=== PATIENT | male | born 1965 | race Caucasian/White ===

== ENCOUNTER 2017-08-18 13:05 | Inpatient (IN) | payer OTHER, MEDICARE ==
[2017-08-18 14:00] VITALS: BP 145/94; PULSE 84; RESP 18; TEMP 98.3; O2SAT 96
[2017-08-18] MEDS ORDERED: POLY17S PO (14:42)
[2017-08-18] MEDS ORDERED: RISP2TAB2 PO (14:42)
[2017-08-18] MEDS ORDERED: QUET400T PO (14:42)
[2017-08-18] MEDS ORDERED: FERR325T18 PO (14:42)
[2017-08-18 15:22] LABS: AUTOMATED NEUTROPHIL # 3.6 TH/MM3 (1.8-7.7); BASOPHIL % 0.5 % (0.0-2.0); EOSINOPHIL # 0.2 TH/MM3 (0-0.4); EOSINOPHIL % 2.7 % (0.0-4.0); HEMATOCRIT 44.5 % (39.0-51.0); HEMOGLOBIN 14.9 GM/DL (13.0-17.0); LYMPHOCYTE # 1.8 TH/MM3 (1.0-4.8); MEAN CORPUSCULAR HEMOGLOBIN 32.2 PG (27.0-34.0); MEAN CORPUSCULAR HGB CONC 33.6 % (32.0-36.0); MEAN PLATELET VOLUME 9.2 FL (7.0-11.0); MONO % 11.1 % (0.0-8.0); MONOCYTE # 0.7 TH/MM3 (0-0.9); NEUT % 57.7 % (16.0-70.0); PLATELET COUNT 209 TH/MM3 (150-450); RED BLOOD COUNT 4.63 MIL/MM3 (4.50-5.90); WHITE BLOOD COUNT 6.3 TH/MM3 (4.0-11.0)
[2017-08-18 15:27] LABS: ALT (GPT) 22 U/L (12-78); AST (GOT) 29 U/L (15-37); BICARBONATE 22.4 MEQ/L (21.0-32.0); BLOOD UREA NITROGEN 16 MG/DL (7-18); CALCIUM 9.2 MG/DL (8.5-10.1); CHLORIDE 105 MEQ/L (98-107); CREATININE 0.89 MG/DL (0.60-1.30); GLOMERULAR FILTRATION RATE 89 ML/MIN (>89); GLUCOSE,RANDOM 66 MG/DL (74-106); SODIUM (NA) 138 MEQ/L (136-145)
--- NOTE | 2017-08-18 15:28 | PD ---
HPI Chief Complaint: Psychiatric Symptoms Time Seen by Provider: 13:44 Travel History International Travel<30 days: No Contact w/Intl Traveler<30days: No Traveled to known affect area: No History of Present Illness HPI HPI is limited because patient will not speak at all. He just stares at me when I ask him questions. I did ask him if he was hungry and a few minutes later he did answer "I am hungry." When asked if he wanted a Gatorade he nodded his head yes. I did ask him to squeeze my fingers and he did squeeze my fingers. According to the Lees act report he has history of schizophrenia and the patient is refusing meds. He is refusing food or drinks including water. He has been off his medications for over a week. USP described bizarre behavior including staring, nonresponsive. PFSH Past Medical History Schizophrenia: Yes Social History Alcohol Use: No Tobacco Use: No Substance Use: No Allergies-Medications Reported Meds & Prescriptions Reported Meds & Active Scripts Active Reported Quetiapine (Quetiapine Fumarate) 400 Mg Tab 800 Mg PO HS Polyethylene Glycol 3350 Powder (Polyethylene Glycol) 17 Gram Pow 17 Gm PO DAILY Ferrous Sulfate 325 Mg (65 Mg Iron) Tablet 325 Mg PO BIDPC Risperidone 2 Mg Tab 2 Mg PO Q12HR Review of Systems ROS Limitations: Uncooperative, Other: (only talking minimally) Physical Exam Narrative GENERAL: Well-nourished, well-developed black male patient, in no acute distress SKIN: Warm and dry. HEAD: Atraumatic. Normocephalic. EYES: Pupils equal and round. ENT: Mucosa pink and moist. NECK: Supple. Trachea midline. CARDIOVASCULAR: Regular rate and rhythm. No murmur appreciated. RESPIRATORY: No accessory muscle use. Clear to auscultation. Breath sounds equal bilaterally. GASTROINTESTINAL: Abdomen soft, non-tender, nondistended. Hepatic and splenic margins not palpable. Bowel sounds are active 4 quadrants. MUSCULOSKELETAL: No obvious deformities. No clubbing. No cyanosis. No edema. NEUROLOGICAL: Awake and alert. No obvious cranial nerve deficits. Motor grossly within normal limits. Normal speech. Moves all extremities. PSYCHIATRIC: Flat affect. No delusional thought processes. No hallucinations. Data Data Last Documented VS Vital Signs Date Time Temp Pulse Resp B/P (MAP) Pulse Ox O2 Delivery O2 Flow Rate FiO2 08/18/17 14:00 98.3 84 18 145/94 (111) 96 Orders Orders Complete Blood Count With Diff (08/18/17 13:45) Comprehensive Metabolic Panel (08/18/17 13:45) Psych Screen (08/18/17 13:45) Drug Screen, Random Urine (08/18/17 13:45) Alcohol (Ethanol) (08/18/17 13:45) Salicylates (Aspirin) (08/18/17 13:45) Tylenol (Acetaminophen) (08/18/17 13:45) Diet Regular Basic (08/18/17 Dinner) Ct Brain W/O Iv Contrast(Rout) (08/18/17 ) Labs Laboratory Tests Test 08/18/17 15:00 08/18/17 15:35 White Blood Count 6.3 TH/MM3 Red Blood Count 4.63 MIL/MM3 Hemoglobin 14.9 GM/DL Hematocrit 44.5 % Mean Corpuscular Volume 96.0 FL Mean Corpuscular Hemoglobin 32.2 PG Mean Corpuscular Hemoglobin Concent 33.6 % Red Cell Distribution Width 14.0 % Platelet Count 209 TH/MM3 Mean Platelet Volume 9.2 FL Neutrophils (%) (Auto) 57.7 % Lymphocytes (%) (Auto) 28.0 % Monocytes (%) (Auto) 11.1 % Eosinophils (%) (Auto) 2.7 % Basophils (%) (Auto) 0.5 % Neutrophils # (Auto) 3.6 TH/MM3 Lymphocytes # (Auto) 1.8 TH/MM3 Monocytes # (Auto) 0.7 TH/MM3 Eosinophils # (Auto) 0.2 TH/MM3 Basophils # (Auto) 0.0 TH/MM3 CBC Comment DIFF FINAL Differential Comment Blood Urea Nitrogen 16 MG/DL Creatinine 0.89 MG/DL Random Glucose 66 MG/DL Total Protein 10.2 GM/DL Albumin 3.0 GM/DL Calcium Level 9.2 MG/DL Alkaline Phosphatase 96 U/L Aspartate Amino Transf (AST/SGOT) 29 U/L Alanine Aminotransferase (ALT/SGPT) 22 U/L Total Bilirubin 0.3 MG/DL Sodium Level 138 MEQ/L Potassium Level 3.8 MEQ/L Chloride Level 105 MEQ/L Carbon Dioxide Level 22.4 MEQ/L Anion Gap 11 MEQ/L Estimat Glomerular Filtration Rate 89 ML/MIN Salicylates Level 4.2 MG/DL Acetaminophen Level LESS THAN 2.0 MCG/ML Ethyl Alcohol Level LESS THAN 3 MG/DL Urine Opiates Screen NEG Urine Barbiturates Screen NEG Urine Amphetamines Screen NEG Urine Benzodiazepines Screen NEG Urine Cocaine Screen NEG Urine Cannabinoids Screen NEG MDM Medical Decision Making Medical Screen Exam Complete: Yes Emergency Medical Condition: Yes Medical Record Reviewed: Yes Differential Diagnosis Medical clearance for psychiatric admission, bipolar disorder, mood disorder, schizophrenia Narrative Course Patient presents under a Lees act. Physical examination and vital signs are essentially unremarkable. Patient has no medical complaints to report. Psych screen has been ordered. If the laboratory results are unremarkable, the patient will be medically cleared for psychiatric evaluation and disposition. Patient was given a food tray and he ate 100% of the food. 1818: CT head concludes: Head CT 08/18/17 0000 Signed Impressions: Service Date/Time: , August 18, 2017 17:17 - CONCLUSION: 1. Limited examination due to patient positioning and motion. 2. No gross acute intracranial abnormality. 3. Right maxillary sinus mucosal disease. Harlan Riley MD Diagnosis Primary Impression: Medical clearance for psychiatric admission Condition: Stable Hannah Fontana [facility] Aug 18, 2017 15:27
[2017-08-18 15:30] LABS: ALKALINE PHOSPHATASE 96 U/L (45-117); TOTAL BILIRUBIN ADULT 0.3 MG/DL (0.2-1.0); TOTAL PROTEIN 10.2 GM/DL (6.4-8.2)
[2017-08-18 15:32] LABS: ACETAMINOPHEN LESS THAN 2.0 MCG/ML (10.0-30.0)
--- NOTE | 2017-08-18 17:50 | RADRPT ---
EXAM DATE/TIME: 08/18/2017 17:17 [place] COMPARISON: No previous studies available for comparison. INDICATIONS : Altered mental status. RADIATION DOSE: 38.82 CTDIvol (mGy) ; Patient motion; Patient positioning MEDICAL HISTORY : schizophrenia SURGICAL HISTORY : None. ENCOUNTER: Initial ACUITY: 1 day PAIN SCALE: 0/10 LOCATION: cranial TECHNIQUE: Multiple contiguous axial images were obtained of the head. Using automated exposure control and adj ustment of the mA and/or kV according to patient size, radiation dose was kept as low as reasonably a chievable to obtain optimal diagnostic quality images. DICOM format image data is available electro nically for review and comparison. FINDINGS: Examination is limited due to patient positioning and motion. CEREBRUM: The ventricles are normal for age. No evidence of midline shift, gross mass lesion, hemorrhage or ac jackeline infarction. No extra-axial fluid collections are seen. POSTERIOR FOSSA: The cerebellum and brainstem are intact. The 4th ventricle is midline. The cerebellopontine angle i s unremarkable. EXTRACRANIAL: The visualized portion of the orbits is intact. Right maxillary sinus mucosal disease. SKULL: The calvaria is intact. No evidence of skull fracture. CONCLUSION: 1. Limited examination due to patient positioning and motion. 2. No gross acute intracranial abnormality. 3. Right maxillary sinus mucosal disease. Harlan Riley MD on August 18, 2017 at 17:46 Board Certified Radiologist. This report was verified electronically.
[2017-08-18 18:00] VITALS: BP 143/95; PULSE 78; RESP 18; TEMP 99.2; O2SAT 97
[2017-08-18] MEDS ORDERED: CALC600T4 PO (22:14)
[2017-08-18] MEDS ORDERED: MULTTAB67 PO (22:14)
[2017-08-18] MEDS ORDERED: FOLI400T PO (22:14)
[2017-08-19] MEDS ORDERED: LORazepam 2 MG/ML VIAL IM PRN (00:15)
[2017-08-19] MEDS ORDERED: MAGNESIUM HYDROXIDE SUSP 30 ML CUP PO PRN (00:15)
[2017-08-19] MEDS ORDERED: ACETAMINOPHEN 325 MG TAB PO PRN (00:15)
[2017-08-19] MEDS ORDERED: ALUMINUM/MAGNESIUM/SIMETH 30 ML CUP PO PRN (00:15)
[2017-08-19 00:42] VITALS: BP 157/98; PULSE 79; RESP 20; TEMP 91.3; O2SAT 94
[2017-08-19 05:52] VITALS: BP 133/74; PULSE 76; RESP 20; TEMP 97.8; O2SAT 94
[2017-08-19] MEDS: NICOTINE 21 MG/24 HR PATCH T-DERMAL SCH (09:00)
[2017-08-19] MEDS: CALCIUM CARBONATE 1.25 GM (CA 500 MG) TAB PO SCH (10:30)
[2017-08-19] MEDS: FOLIC ACID 1 MG TAB PO SCH (10:30)
[2017-08-19] MEDS: MULTIVITAMIN TAB PO SCH (11:00)
[2017-08-19] MEDS ORDERED: risperiDONE 1 MG TAB PO SCH (11:00)
--- NOTE | 2017-08-19 12:45 | PD.PSY.CON ---
Provisional Diagnosis Admission Date Aug 19, 2017 at 00:05 [place] I. Schizophrenia History of Present Illness Service Psychiatry Consult Requested By Dr. Callaway Reason for Consult Second opinion Primary Care Physician Unknown HPI The patient is a 52-year-old man with secondary history of schizophrenia, domiciled in an [facility], brought to the hospital due to bizarre behavior and mutism. Consulted to be for second opinion. My assessment is limited because patient will not speak at all. He was found in his room with a blanket in his head, refusing to cooperate and provide information for the psychiatric assessment. According to the Lees act report he has history of schizophrenia and the patient is refusing meds. He is refusing food or drinks including water. He has been off his medications for over a week. ADDIE described bizarre behavior including staring, nonresponsive. Review of Systems Except as stated in HPI: all other systems reviewed are Neg Past Family Social History Coded Allergies: No Known Allergies (Unverified , 08/18/17) Reported Medications Folic Acid (Folic Acid) 0.4 Mg Tab, 400 MCG PO DAILY for Nutritional Supplement , TAB 0 Refills 08/18/17 Calcium Carbonate (Calcium Carbonate) 1,500 Mg Tab, 1500 MG PO DAILY for Calcium Supplement, TAB 0 Refills 1,500 mg calcium carbonate (600 mg elemental calcium) 08/18/17 Multiple Vitamin (Multiple Vitamin) 1 Tab, 1 TAB PO DAILY for Nutritional Supplement, TAB 0 Refills 08/18/17 Quetiapine (Quetiapine) 400 Mg Tab, 800 MG PO HS, #30 TAB 0 Refills 08/18/17 Polyethylene Glycol 3350 Powder (Polyethylene Glycol 3350 Powder) 17 Gram Pow, 17 GM PO DAILY for Constipation, #1 BOTTLE 0 Refills 08/18/17 Ferrous Sulfate (Ferrous Sulfate) 325 Mg (65 Mg Iron) Tablet, 325 MG PO BIDPC for Nutritional Supplement, #60 TAB 0 Refills 08/18/17 Risperidone (Risperidone) 2 Mg Tab, 2 MG PO Q12HR, #60 TAB 0 Refills 08/18/17 Current Medications Medications (Trade) Dose Ordered Sig/Rajesh Route Start Time Stop Time Status Last Admin (Ativan) 1 mg Q6H PRN PO 08/19/17 00:15 (Ativan Inj) 1 mg Q6H PRN IM 08/19/17 00:15 (Tylenol) 650 mg Q4H PRN PO 08/19/17 00:15 (Milk Of Magnesia Liq) 30 ml DAILY PRN PO 08/19/17 00:15 (Mag-Al Plus Susp Liq) 30 ml Q6H PRN PO 08/19/17 00:15 (Habitrol 21 Mg Patch.24 Hr) 1 patch DAILY T-DERMAL 08/19/17 09:00 Miscellaneous Information 1 HS T-DERMAL 08/19/17 21:00 (Oscal) 1,500 mg DAILY PO 08/19/17 10:30 (Ferrous Sulfate) 325 mg BIDPC PO 08/19/17 18:00 (Folate) 1 mg DAILY PO 08/19/17 10:30 (Miralax) 17 gm DAILY PO 08/20/17 09:00 (Theragran) 1 tab DAILY PO 08/19/17 11:00 (risperDAL) 2 mg Q12HR PO 08/19/17 11:00 Physical Exam Vital Signs Vital Signs Date Time Temp Pulse Resp B/P (MAP) Pulse Ox O2 Delivery O2 Flow Rate FiO2 08/19/17 05:52 97.8 76 20 133/74 (93) 94 08/18/17 18:00 Room Air I/O 08/19/17 08/19/17 08/20/17 08:00 16:00 00:00 Intake Total 480 ml Balance 480 ml Lab Results Test 08/18/17 15:00 08/18/17 15:35 White Blood Count 6.3 TH/MM3 Red Blood Count 4.63 MIL/MM3 Hemoglobin 14.9 GM/DL Hematocrit 44.5 % Mean Corpuscular Volume 96.0 FL Mean Corpuscular Hemoglobin 32.2 PG Mean Corpuscular Hemoglobin Concent 33.6 % Red Cell Distribution Width 14.0 % Platelet Count 209 TH/MM3 Mean Platelet Volume 9.2 FL Neutrophils (%) (Auto) 57.7 % Lymphocytes (%) (Auto) 28.0 % Monocytes (%) (Auto) 11.1 % Eosinophils (%) (Auto) 2.7 % Basophils (%) (Auto) 0.5 % Neutrophils # (Auto) 3.6 TH/MM3 Lymphocytes # (Auto) 1.8 TH/MM3 Monocytes # (Auto) 0.7 TH/MM3 Eosinophils # (Auto) 0.2 TH/MM3 Basophils # (Auto) 0.0 TH/MM3 CBC Comment DIFF FINAL Differential Comment Blood Urea Nitrogen 16 MG/DL Creatinine 0.89 MG/DL Random Glucose 66 MG/DL Total Protein 10.2 GM/DL Albumin 3.0 GM/DL Calcium Level 9.2 MG/DL Alkaline Phosphatase 96 U/L Aspartate Amino Transf (AST/SGOT) 29 U/L Alanine Aminotransferase (ALT/SGPT) 22 U/L Total Bilirubin 0.3 MG/DL Sodium Level 138 MEQ/L Potassium Level 3.8 MEQ/L Chloride Level 105 MEQ/L Carbon Dioxide Level 22.4 MEQ/L Anion Gap 11 MEQ/L Estimat Glomerular Filtration Rate 89 ML/MIN Salicylates Level 4.2 MG/DL Acetaminophen Level LESS THAN 2.0 MCG/ML Ethyl Alcohol Level LESS THAN 3 MG/DL Urine Opiates Screen NEG Urine Barbiturates Screen NEG Urine Amphetamines Screen NEG Urine Benzodiazepines Screen NEG Urine Cocaine Screen NEG Urine Cannabinoids Screen NEG Mental Status Examination Mental Status Exam Remarks Limited due to lack of cooperation, patient refused to talk Assessment & Plan Problem List: (1) Schizophrenia ICD Codes: F20.9 - Schizophrenia, unspecified Assessment & Plan: I have seen and examined this patient. Reviewed the documentation. Discussed with Dr. Callaway personally. I agree and concur with this assessment and plan. Consult appreciated. Assessment & Plan Estimated LOS: Sina Mario MD Aug 19, 2017 12:44
--- NOTE | 2017-08-19 15:59 | HHI.HP ---
Provisional Diagnosis Admission Date Aug 19, 2017 at 00:05 [place] I. Schizophrenia Certification of Person's Competence To Provide Express and Informed Consent I have personally examined Fausto Narvaez , a person being served at [facility] on, Aug 19, 2017 15:49. Express and informed consent means consent voluntarily given in writing, by a competent person, after sufficient explanation and disclosure of the subject matter involved to enable the person to make a knowing and willful decision without any element of force, fraud, deceit, duress, or other form of constraint or coercion. This person is 18 years of age or older, is not now known to be incompetent to consent to treatment with a guardian advocate, and does not have a health care surrogate or proxy currently making medical treatment decisions. I have found this person to be one of the following: [] Competent to provide express and informed consent, as defined above, for voluntary admission to this facility and is competent to provide express and informed consent for treatment. He/she has the consistent capacity to make well reasoned, willful, and knowing decisions concerning his or her medical or mental health treatment. The person fully and consistently understands the purpose of the admission for examination/placement and is fully capable of personally exercising all rights [place] [x] Incompetent to provide express and informed consent to voluntary admission, and this is incompetent to provide express and informed consent to treatment. The person must be transferred to involuntary status and a petition for a guardian advocate filed with the Circuit Court. [] Refusing to provide express and informed consent to voluntary admission but is competent to provide express and informed consent for treatment. The person must be discharged or transferred to involuntary status. Form shall be completed within 24 hours of a person's arrival at the receiving facility and filed in the clinical record of each person: 1. Admitted on a voluntary basis 2. Permitted to provide express and informed consent to his/her own treatment 3. Allowed to transfer from involuntary to voluntary status 4. Prior to permitting a person to consent to his or her own treatment after having been previously found incompetent to consent to treatment. History of Present Illness Capacity: Lacks Capacity HPI Patient is a 52-year-old Afro-Tajik man, unknown marital status, domiciled an assisted living facility, with a past psychiatric history of schizophrenia, unknown previous psychiatric hospitalizations, suicide attempts or self- injurious behavior who was brought in under Lees act from his residential facility due to refusing medications for the past week refusing to eat and drink along with pain noted to be bizarre, staring and nonresponsive. She was found lying in hospital bed awake alert, poor eye contact but refusing to speak with marine underwriter despite encouragement. Discussion she staff reported the patient had been noted to be eating 100% of his meals since arrival and drinking well but refusing medications. Patient noted to be having minimal verbal interactions with staff and have is mostly noted to be in bed. Patient at this time likely to have decompensation due to her behaviors to medications several require continued inpatient psychiatric admission for evaluation and management. Patient at this time is deemed at that have any capacity to sign voluntary dose to participate in medical decision making at this time. Psychiatric history: Previous psychiatric diagnoses of schizophrenia as per chart, unknown of previous psychiatric hospitalizations, suicide attempt or self -injurious behavior. Patient recent medication regimen as noted in facilities documentation include risperidone 2 mg once daily, ferrous sulfate 325 mg once daily, quetiapine 400 mg twice daily. Past medical history: Unknown patient not participating in interview Allergies: NKDA as per chart Substance use history: Unknown history patient not participating in interview Social history: Domiciled at [facility]) Second opinion: The patient is a 52-year-old man with secondary history of schizophrenia, domiciled in an [facility], brought to the hospital due to bizarre behavior and mutism. Consulted to be for second opinion. My assessment is limited because patient will not speak at all. He was found in his room with a blanket in his head, refusing to cooperate and provide information for the psychiatric assessment. According to the Lees act report he has history of schizophrenia and the patient is refusing meds. He is refusing food or drinks including water. He has been off his medications for over a week. ADDIE described bizarre behavior including staring, nonresponsive. Review of Systems Except as stated in HPI: all other systems reviewed are Neg Past Psych History Psychological trauma history Unknown history patient not participating in intervie Violence risk - others (6 mos) low Violence risk - self (6 mos) Elevated due to patient's recent report of nonadherence to medications as well as refusing to eat or drink Substance Abuse History Drugs/Alcohol past 12 months Unknown history patient not participating in intervie Past Family Social History Coded Allergies: No Known Allergies (Unverified , 08/18/17) Reported Medications Folic Acid (Folic Acid) 0.4 Mg Tab, 400 MCG PO DAILY for Nutritional Supplement , TAB 0 Refills 08/18/17 Calcium Carbonate (Calcium Carbonate) 1,500 Mg Tab, 1500 MG PO DAILY for Calcium Supplement, TAB 0 Refills 1,500 mg calcium carbonate (600 mg elemental calcium) 08/18/17 Multiple Vitamin (Multiple Vitamin) 1 Tab, 1 TAB PO DAILY for Nutritional Supplement, TAB 0 Refills 08/18/17 Quetiapine (Quetiapine) 400 Mg Tab, 800 MG PO HS, #30 TAB 0 Refills 08/18/17 Polyethylene Glycol 3350 Powder (Polyethylene Glycol 3350 Powder) 17 Gram Pow, 17 GM PO DAILY for Constipation, #1 BOTTLE 0 Refills 08/18/17 Ferrous Sulfate (Ferrous Sulfate) 325 Mg (65 Mg Iron) Tablet, 325 MG PO BIDPC for Nutritional Supplement, #60 TAB 0 Refills 08/18/17 Risperidone (Risperidone) 2 Mg Tab, 2 MG PO Q12HR, #60 TAB 0 Refills 08/18/17 Current Medications Medications (Trade) Dose Ordered Sig/Rajesh Route Start Time Stop Time Status Last Admin (Ativan) 1 mg Q6H PRN PO 08/19/17 00:15 (Ativan Inj) 1 mg Q6H PRN IM 08/19/17 00:15 (Tylenol) 650 mg Q4H PRN PO 08/19/17 00:15 (Milk Of Magnesia Liq) 30 ml DAILY PRN PO 08/19/17 00:15 (Mag-Al Plus Susp Liq) 30 ml Q6H PRN PO 08/19/17 00:15 (Habitrol 21 Mg Patch.24 Hr) 1 patch DAILY T-DERMAL 08/19/17 09:00 Miscellaneous Information 1 HS T-DERMAL 08/19/17 21:00 (Oscal) 1,500 mg DAILY PO 08/19/17 10:30 (Ferrous Sulfate) 325 mg BIDPC PO 08/19/17 18:00 (Folate) 1 mg DAILY PO 08/19/17 10:30 (Miralax) 17 gm DAILY PO 08/20/17 09:00 (Theragran) 1 tab DAILY PO 08/19/17 11:00 (risperDAL) 2 mg Q12HR PO 12/29/17 11:00 Family Psych History Unknown history patient not participating in intervie Social History Domiciled at [facility] ([facility]), rest of social history unknown history patient not participating in interview Patient's Strengths (min. 2) Domiciled and has access to care Physical Exam Patient not noted to be in acute distress, noted to be selectively mute, no gross motor abnormalities, no tremors or EPS, no noted psychomotor retardation or agitation. Vital Signs Vital Signs Date Time Temp Pulse Resp B/P (MAP) Pulse Ox O2 Delivery O2 Flow Rate FiO2 08/19/17 05:52 97.8 76 20 133/74 (93) 94 08/18/17 18:00 Room Air I/O 08/19/17 08/19/17 08/20/17 08:00 16:00 00:00 Intake Total 480 ml Balance 480 ml Mental Status Examination Appearance: Disheveled Consciousness: Alert Motor Activity: Normal gait Speech: Other Language: Other (unknown as patient refuses to participate in interview) Fund of Knowledge: Poor Attention and Concentration: Inadequate Mood: Other (unknown as patient refuses to participate in interview) Affect: Flat, Other (appears to be internally preoccupied) Thought Process & Associations: Other (unknown as patient refuses to participate in interview) Thought Content: Other (unknown as patient refuses to participate in interview) Hallucination Type: Other (unknown as patient refuses to participate in interview) Delusion Type: Other (unknown as patient refuses to participate in interview) Suicidal Ideation: No (unknown as patient refuses to participate in interview) Suicidal Plan: No Suicidal Intention: No Homicidal Ideation: No Homicidal Plan: No Homicidal Intention: No Insight: Poor Judgment: Poor Assessment & Plan Problem List: (1) Schizophrenia ICD Codes: F20.9 - Schizophrenia, unspecified Assessment & Plan Estimated LOS: 5-7 days. Patient is a 82-year-old Afro-Taj[place] man who carries a diagnosis schizophrenia, recently admitted under Lees act for not eating or drinking, as well as medication adherence which he is currently on inpatient psychiatry unit for further evaluation and management. She at this time and noted to be selectively mute, not interacting with interview but noted to be internally preoccupied. Patient does not seem to be catatonic at this time. We'll restart medications to include risperidone 1 mg by mouth twice a day, quetiapine 400 mg at bedtime, consult hospitalist for medication management of chronic medical issues. We'll start petition for involuntary hospitalizations along with request for healthcare surrogate and guardian advocate. Second opinion requested. Collateral admission pending from ADDIE as well as possible family members to services health care surrogate. Discharge planning in progress Discharge Planning At risk for further decompensation if lower level of care Request HC Surrog/Guard Advoc?: Yes Trenton Callaway MD Aug 19, 2017 15:59
[2017-08-19] MEDS: FERROUS SULFATE 325 MG (65 MG ELEMENTAL IRON) TAB PO SCH (17:59)
[2017-08-19 18:02] VITALS: BP 156/81; PULSE 87; RESP 17; TEMP 97.4; O2SAT 94
--- NOTE | 2017-08-19 20:27 | PD.CONS ---
HPI Service [facility] Consult Requested By Dr. Callaway Reason for Consult Not eating or drinking Primary Care Physician Unknown Diagnoses: (1) Schizophrenia History of Present Illness 52M with h/o schizophrenia was [facility] [facility] recently for behavioral issues. He is not a very good historian and is somewhat untrusting of me. He is unable to relay to me the events that led up to his admission. Review of Systems ROS Limitations: Poor Historian Constitutional: DENIES: Diaphoretic episodes, Fatigue, Fever Cardiovascular: DENIES: Chest pain Gastrointestinal: DENIES: Abdominal pain Psychiatric: DENIES: Anxiety Past Family Social History Allergies: Coded Allergies: No Known Allergies (Unverified , 08/18/17) Past Medical History schizophrenia Past Surgical History no information by history Social History uncertain Physical Exam Vital Signs Vital Signs Date Time Temp Pulse Resp B/P (MAP) Pulse Ox O2 Delivery O2 Flow Rate FiO2 08/19/17 18:02 97.4 87 17 156/81 (106) 94 08/19/17 05:52 97.8 76 20 133/74 (93) 94 08/19/17 00:42 91.3 79 20 157/98 (117) 94 Physical Exam GENERAL: This is a well-nourished, but rather uncooperative man SKIN: Dry skin with a few shallow sores on right martinez, no sign of infection HEAD: Atraumatic. Normocephalic. No temporal or scalp tenderness. EYES: Pupils equal round and reactive. Extraocular motions intact. No scleral icterus. No injection or drainage. ENT: Nose without bleeding, purulent drainage or septal hematoma. Throat without erythema, tonsillar hypertrophy or exudate. Uvula midline. Airway patent. NECK: Trachea midline. No JVD or lymphadenopathy. Supple, nontender, no meningeal signs. CARDIOVASCULAR: Regular rate and rhythm without murmurs, gallops, or rubs. RESPIRATORY: Clear to auscultation. Breath sounds equal bilaterally. No wheezes , rales, or rhonchi. GASTROINTESTINAL: Abdomen soft, non-tender, nondistended. No hepato-splenomegaly , or palpable masses. No guarding. MUSCULOSKELETAL: Extremities without clubbing, cyanosis, or edema. No joint tenderness, effusion, or edema noted. No calf tenderness. Negative Homans sign bilaterally. NEUROLOGICAL: Awake and alert. Cranial nerves II through XII intact. Motor and sensory grossly within normal limits. Five out of 5 muscle strength in all muscle groups. Normal speech. Result Diagram: 08/18/17 1500 08/18/17 1500 Assessment and Plan Problem List: (1) Schizophrenia ICD Code: F20.9 - Schizophrenia, unspecified Assessment and Plan Not eating or drinking If I am not mistaken, I believe he ate breakfast this morning I will follow daily and discuss his habits with nursing Sores on left martinez Not infected. He declined tactile exam and declined my offer for Neosporin I will provide bacitracin ointment Manuel Barba MD Aug 19, 2017 20:26
[2017-08-19] MEDS ORDERED: BACITRACIN TOP OINT 15 GM TUBE TOPICAL PRN (20:30)
[2017-08-19] MEDS: REMOVE OLD NICOTINE PATCH T-DERMAL SCH (20:46)
[2017-08-19] MEDS: risperiDONE 1 MG TAB PO SCH (20:48)
[2017-08-20 06:00] VITALS: BP 155/90; PULSE 88; RESP 18; TEMP 97.6; O2SAT 98
[2017-08-20] MEDS: FERROUS SULFATE 325 MG (65 MG ELEMENTAL IRON) TAB PO SCH ×2 (08:22→17:23)
[2017-08-20] MEDS: MULTIVITAMIN TAB PO SCH (08:22)
[2017-08-20] MEDS: NICOTINE 21 MG/24 HR PATCH T-DERMAL SCH (08:22)
[2017-08-20] MEDS: CALCIUM CARBONATE 1.25 GM (CA 500 MG) TAB PO SCH (08:22)
[2017-08-20] MEDS: FOLIC ACID 1 MG TAB PO SCH (08:22)
[2017-08-20] MEDS: POLYETHYLENE GLYCOL 17 GM PKG PO SCH (08:22)
[2017-08-20] MEDS: risperiDONE 1 MG TAB PO SCH ×2 (08:22→21:00)
--- NOTE | 2017-08-20 13:34 | HHI.PR ---
Subjective Remarks Follow-up visit not eating or drinking. Patient seen and examined today sitting in bed. Nursing at the bedside. Patient called by his name patient adamantly stated his name is not "Mr. Narvaez." When asked what he is name, patient does not respond reply. As per nursing, patient is selectively mute. Minimal verbalization due to nonverbal the whole day. Refused all his medications and most his food. Refused to be examined. Objective Vitals Vital Signs Date Time Temp Pulse Resp B/P (MAP) Pulse Ox O2 Delivery O2 Flow Rate FiO2 08/20/17 06:00 97.6 88 18 155/90 (111) 98 08/19/17 18:02 97.4 87 17 156/81 (106) 94 I/O 08/19/17 08/19/17 08/19/17 08/20/17 08/20/17 08/20/17 07:00 15:00 23:00 07:00 15:00 23:00 Intake Total 480 ml 360 ml 240 ml Balance 480 ml 360 ml 240 ml Intake Oral 480 ml 360 ml 240 ml # Voids 2 Result Diagram: 08/18/17 1500 08/18/17 1500 Objective Remarks GENERAL: This is a well-nourished, well-developed patient, in no apparent distress. HEENT: Pupils equal round. Nose without bleeding. Airway patent. NECK: Trachea midline. MUSCULOSKELETAL: Extremities without edema. NEUROLOGICAL: Awake and alert. Moves all extremities. Minimal verbalization. A/P Problem List: (1) Schizophrenia ICD Code: F20.9 - Schizophrenia, unspecified Assessment and Plan Patient is a 52-year-old male who came in under [place] act for refusing indications, food and drink. He is now admitted to medical psychiatry for further evaluation. Consulted for medical management. Schizophrenia - Managed by psychiatry team Refusal of medications, food, drinks - Labs have been reviewed. Urine toxicology negative. Chemistry showed low protein and low albumin otherwise within normal. Complete blood count without any abnormality except for slightly elevated mono percentage - Check UA. Check TSH, vitamin D, vitamin B12. We will follow-up results. - Most likely patient refusal is secondary to his schizophrenia. If to schizophrenia and psychological issue is managed he might start eating. DVT prop encourage ambulation Sara Cerna Aug 20, 2017 13:34
--- NOTE | 2017-08-20 20:17 | HHI.PYPN ---
Subjective Remarks Pt seen and discussed with staff. He remains paranoid and suspicious. He is uncooperative wtih care and refusing medications. He is engaging in bizarre disorganized behaviors. He refuses to engage in interview with MD. Mental Status Examination Appearance: Disheveled Consciousness: Alert Motor Activity: Normal gait Speech: Other Language: Other (unknown as patient refuses to participate in interview) Fund of Knowledge: Poor Attention and Concentration: Inadequate Mood: Other (unknown as patient refuses to participate in interview) Affect: Flat, Other (appears to be internally preoccupied) Thought Process & Associations: Other (unknown as patient refuses to participate in interview) Thought Content: Other (unknown as patient refuses to participate in interview) Hallucination Type: Other (appears internally stimulated) Delusion Type: Other (unknown as patient refuses to participate in interview) Suicidal Ideation: No (unknown as patient refuses to participate in interview) Suicidal Plan: No Suicidal Intention: No Homicidal Ideation: No Homicidal Plan: No Homicidal Intention: No Insight: Poor Judgment: Poor Results Vitals/IOs Vital Signs Date Time Temp Pulse Resp B/P (MAP) Pulse Ox O2 Delivery O2 Flow Rate FiO2 08/20/17 06:00 97.6 88 18 155/90 (111) 98 08/18/17 18:00 Room Air Intake and Output 08/20/17 08/20/17 08/21/17 08:00 16:00 00:00 Intake Total 240 ml 240 ml 120 ml Balance 240 ml 240 ml 120 ml Assessment & Plan Problem List: (1) Schizophrenia ICD Codes: F20.9 - Schizophrenia, unspecified Assessment & Plan Continue current tx plan. Estimated LOS: days Justification for Cont. Inpt. impairments in reality testing Request HC Surrog/Guard Advoc?: Yes Alanna Das MD Aug 20, 2017 20:17
[2017-08-20] MEDS: REMOVE OLD NICOTINE PATCH T-DERMAL SCH (21:00)
[2017-08-21 06:00] VITALS: BP 162/70; PULSE 99; RESP 18; TEMP 97.9; O2SAT 100
[2017-08-21] MEDS: NICOTINE 21 MG/24 HR PATCH T-DERMAL SCH (08:24)
[2017-08-21] MEDS: REMOVE OLD NICOTINE PATCH T-DERMAL SCH (08:24)
[2017-08-21] MEDS: MULTIVITAMIN TAB PO SCH (08:24)
[2017-08-21] MEDS: CALCIUM CARBONATE 1.25 GM (CA 500 MG) TAB PO SCH (08:24)
[2017-08-21] MEDS: POLYETHYLENE GLYCOL 17 GM PKG PO SCH (08:24)
[2017-08-21] MEDS: risperiDONE 1 MG TAB PO SCH ×2 (08:24→20:42)
[2017-08-21] MEDS: FOLIC ACID 1 MG TAB PO SCH (08:24)
[2017-08-21] MEDS: FERROUS SULFATE 325 MG (65 MG ELEMENTAL IRON) TAB PO SCH ×2 (08:25→14:59)
--- NOTE | 2017-08-21 12:24 | HHI.PYPN ---
Subjective Remarks Pt seen and discussed with staff. He has been eating meals, but continues to refuse medications and care. He has been selectively mute with staff. He refused to allow labs today. During interview, pt put a pillow over face to hide from MD. He was later observed by MD telling hospitalist that his name was not Fausto Narvaez and behaved in a disorganized paranoid fashion. Mental Status Examination Appearance: Disheveled Consciousness: Alert Orientation: Person (stated that his name was not Fausto Narvaez) Motor Activity: Normal gait Speech: Other (selectively mute) Fund of Knowledge: Inadequate Attention and Concentration: Inadequate Memory: Unremarkable, Impaired (to assess as pt is selectively mute. ) Mood: Irritable Affect: Flat Thought Process & Associations: Disorganized (as observed via behaviors), Other Thought Content: Other (paranoid) Hallucination Type: Other (appears internally stimulated) Delusion Type: Paranoid, Other (unknown as patient refuses to participate in interview) Suicidal Ideation: No (unknown as patient refuses to participate in interview) Suicidal Plan: No Suicidal Intention: No Homicidal Ideation: No Homicidal Plan: No Homicidal Intention: No Insight: Poor Judgment: Poor Results Vitals/IOs Vital Signs Date Time Temp Pulse Resp B/P (MAP) Pulse Ox O2 Delivery O2 Flow Rate FiO2 08/21/17 06:00 97.9 99 18 162/70 (100) 100 08/18/17 18:00 Room Air Intake and Output 08/21/17 08/21/17 08/22/17 08:00 16:00 00:00 Intake Total 0 ml 360 ml Balance 0 ml 360 ml Assessment & Plan Problem List: (1) Schizophrenia ICD Codes: F20.9 - Schizophrenia, unspecified Assessment & Plan Continue current tx plan. Estimated LOS: days Justification for Cont. Inpt. impairments in reality testing and self care Request HC Surrog/Guard Advoc?: Yes Alanna Das MD Aug 21, 2017 12:24
--- NOTE | 2017-08-21 14:00 | HHI.PR ---
Subjective Remarks Follow-up visit not eating or drinking. Patient seen today lying in bed with pillow covering his face. Patient states no to examination. Has repetitive saying "No", and states "How many times do I need to tell u?." Again states he is not Mr. Narvaez. As per nursing, patient has not talked all day. He is eating better compared to previous. Spoke with Dr. Das she states that the patient does not talk to him, are answered end of her questions. Objective Vitals Vital Signs Date Time Temp Pulse Resp B/P (MAP) Pulse Ox O2 Delivery O2 Flow Rate FiO2 08/21/17 06:00 97.9 99 18 162/70 (100) 100 I/O 08/20/17 08/20/17 08/20/17 08/21/17 08/21/17 08/21/17 07:00 15:00 23:00 07:00 15:00 23:00 Intake Total 480 ml 600 ml 0 ml 360 ml Balance 480 ml 600 ml 0 ml 360 ml Intake Oral 480 ml 600 ml 0 ml 360 ml # Voids 2 5 1 0 Result Diagram: 08/18/17 1500 08/18/17 1500 Imaging Last Impressions Head CT 08/18/17 0000 Signed Impressions: Service Date/Time: July 17:17 - CONCLUSION: 1. Limited examination due to patient positioning and motion. 2. No gross acute intracranial abnormality. 3. Right maxillary sinus mucosal disease. Harlan Riley MD Objective Remarks GENERAL: This is a well-nourished, well-developed patient, in no apparent distress. HEENT: Pupils equal round. Nose without bleeding. Airway patent. NECK: Trachea midline. MUSCULOSKELETAL: Extremities without edema. NEUROLOGICAL: Awake and alert. Moves all extremities. Minimal verbalization. Appears easily agitated. A/P Problem List: (1) Schizophrenia ICD Code: F20.9 - Schizophrenia, unspecified Assessment and Plan Patient is a 52-year-old male who came in under [place] act for refusing indications, food and drink. He is now admitted to medical psychiatry for further evaluation. Consulted for medical management. Schizophrenia - Managed by psychiatry team Refusal of medications, food, drinks - Labs have been reviewed. Urine toxicology negative. Chemistry showed low protein and low albumin otherwise within normal. Complete blood count without any abnormality except for slightly elevated mono percentage - Check UA. Check TSH, vitamin D, vitamin B12. We will follow-up results. - Most likely patient refusal is secondary to his schizophrenia. If his schizophrenia and psychological issue is managed he might start eating. DVT prop encourage ambulation If labs are WNL, we will sign off. Sara Cerna Aug 21, 2017 14:00
[2017-08-21 18:35] VITALS: PULSE 53; TEMP 98.3
[2017-08-22 06:35] VITALS: BP 162/70; PULSE 99; RESP 18; TEMP 97.9; O2SAT 100
[2017-08-22] MEDS: CALCIUM CARBONATE 1.25 GM (CA 500 MG) TAB PO SCH (07:48)
[2017-08-22] MEDS: FOLIC ACID 1 MG TAB PO SCH (07:48)
[2017-08-22] MEDS: FERROUS SULFATE 325 MG (65 MG ELEMENTAL IRON) TAB PO SCH ×2 (07:48→16:04)
[2017-08-22] MEDS: POLYETHYLENE GLYCOL 17 GM PKG PO SCH (07:48)
[2017-08-22] MEDS: NICOTINE 21 MG/24 HR PATCH T-DERMAL SCH (07:49)
[2017-08-22] MEDS: MULTIVITAMIN TAB PO SCH (07:49)
[2017-08-22] MEDS: risperiDONE 1 MG TAB PO SCH ×2 (07:49→21:00)
--- NOTE | 2017-08-22 08:49 | HHI.PR ---
Subjective Remarks Follow-up visit on 52-year-old male admitted to medical psychiatry unit due to refusal of medications, food, drinks well living in [facility]. Patient seen a day while lying in bed with pillow covering his face, he is non-verbal and did not show any interest any communicating with me. Discussed with nurse who states that patient is now eating and drinking as well as showered yesterday although he showered fully closed. Patient continues to refuse medications as well as refuse lab work. Objective Vitals Vital Signs Date Time Temp Pulse Resp B/P (MAP) Pulse Ox O2 Delivery O2 Flow Rate FiO2 08/22/17 06:35 97.9 99 18 162/70 (100) 100 08/21/17 18:35 98.3 53 I/O 08/21/17 08/21/17 08/21/17 08/22/17 08/22/17 08/22/17 07:00 15:00 23:00 07:00 15:00 23:00 Intake Total 0 ml 360 ml 720 ml 480 ml Output Total 3 ml Balance 0 ml 360 ml 720 ml 477 ml Intake Oral 0 ml 360 ml 720 ml 480 ml Output Urine Total 3 ml # Voids 0 1 0 Result Diagram: 08/18/17 1500 08/18/17 1500 Imaging Last Impressions Head CT 08/18/17 0000 Signed Impressions: Service Date/Time: July 17:17 - CONCLUSION: 1. Limited examination due to patient positioning and motion. 2. No gross acute intracranial abnormality. 3. Right maxillary sinus mucosal disease. Harlan Riley MD Objective Remarks Examination is limited as patient is lying in bed with pillow over his face. He is nonverbal and does not appear in any acute distress. A/P Problem List: (1) Schizophrenia ICD Code: F20.9 - Schizophrenia, unspecified Assessment and Plan Patient is a 52-year-old male who came in under [place] act for refusing indications, food and drink. He is now admitted to medical psychiatry for further evaluation. Consulted for medical management. Schizophrenia - Managed by psychiatry team - Patient continues to refuse medications Refusal of medications, food, drinks - Urine toxicology negative. Chemistry showed low protein and low albumin otherwise within normal. Complete blood count without any abnormality except for slightly elevated mono percentage. - Orders to check UA. Check TSH, vitamin D, vitamin B12. Patient continues to refuse lab work. - Most likely patient refusal is secondary to his schizophrenia, psychiatry team continues to encourage patient to comply with medication treatment. DVT prop encourage ambulation We will follow-up once labs are obtained and sign off if within normal range. Zhane Womack Aug 22, 2017 08:49
--- NOTE | 2017-08-22 11:15 | HHI.PYPN ---
Subjective Remarks I have seen and examined this patient today for psychiatric reevaluation. I have discussed widely his case with nurse in charge. I have also review documentation from the weekend. On psychiatric evaluation today patient is oppositional, resistant, selectively mute. I tried to engaging in a conversation multiple times, but the patient continues to have a pillow in his face refused to talk. He has been noncompliant with his medications. He has been described also oppositional and mute during the weekend. Mental Status Examination Appearance: Disheveled Consciousness: Alert Orientation: Person (stated that his name was not Fausto Narvaez) Motor Activity: Normal gait Speech: Other (selectively mute) Fund of Knowledge: Inadequate Attention and Concentration: Inadequate Memory: Unremarkable, Impaired (to assess as pt is selectively mute. ) Mood: Irritable Affect: Flat Thought Process & Associations: Disorganized (as observed via behaviors), Other Thought Content: Other (paranoid) Hallucination Type: Other (appears internally stimulated) Delusion Type: Paranoid, Other (unknown as patient refuses to participate in interview) Suicidal Ideation: No (unknown as patient refuses to participate in interview) Suicidal Plan: No Suicidal Intention: No Homicidal Ideation: No Homicidal Plan: No Homicidal Intention: No Insight: Poor Judgment: Poor Results Vitals/IOs Vital Signs Date Time Temp Pulse Resp B/P (MAP) Pulse Ox O2 Delivery O2 Flow Rate FiO2 08/22/17 06:35 97.9 99 18 162/70 (100) 100 08/18/17 18:00 Room Air Intake and Output 08/22/17 08/22/17 08/23/17 08:00 16:00 00:00 Intake Total 480 ml 720 ml Output Total 3 ml Balance 477 ml 720 ml Assessment & Plan Problem List: (1) Schizophrenia ICD Codes: F20.9 - Schizophrenia, unspecified Assessment & Plan: Patient continues to be oppositional, irritable, non- cooperative with the evaluation which is most probably the result of acute psychosis and paranoia. He also has been noncompliant with medications. He has been eating. Continue to encourage patient to take his medication. Assessment & Plan Estimated LOS: days Justification for Cont. Inpt. Patient is acutely psychotic and will continue psychiatric hospitalization for stabilization. Request HC Surrog/Guard Advoc?: Yes Sina Ferrara MD Aug 22, 2017 11:15
[2017-08-22] MEDS: REMOVE OLD NICOTINE PATCH T-DERMAL SCH (21:00)
[2017-08-23 06:11] VITALS: BP 137/69; PULSE 77; RESP 18; TEMP 97.5; O2SAT 96
--- NOTE | 2017-08-23 08:22 | HHI.PR ---
Subjective Remarks Follow-up visit on 52-year-old male admitted to medical psychiatry unit due to refusal of medications, food, drinks well living in [facility]. Patient seen in his room resting comfortably in bed, he is nonverbal he does makes eye contact with me once and then covers his face with pillow. Patient once again does not seem interested in speaking with me. He has also refused labs. Objective Vitals Vital Signs Date Time Temp Pulse Resp B/P (MAP) Pulse Ox O2 Delivery O2 Flow Rate FiO2 08/23/17 06:11 97.5 77 18 137/69 (91) 96 I/O 08/22/17 08/22/17 08/22/17 08/23/17 08/23/17 08/23/17 07:00 15:00 23:00 07:00 15:00 23:00 Intake Total 480 ml 1320 ml 2640 ml Output Total 3 ml Balance 477 ml 1320 ml 2640 ml Intake Oral 480 ml 1320 ml 2640 ml Output Urine Total 3 ml # Voids 0 3 1 # Bowel Movements 1 Imaging Last Impressions Head CT 08/18/17 0000 Signed Impressions: Service Date/Time: , August 18, 2017 17:17 - CONCLUSION: 1. Limited examination due to patient positioning and motion. 2. No gross acute intracranial abnormality. 3. Right maxillary sinus mucosal disease. Harlan Riley MD Objective Remarks Examination is limited patient does make eye contact with me once, he is nonverbal. Places pillows over his face without difficulties, appears to be moving lower extremities. A/P Problem List: (1) Schizophrenia ICD Code: F20.9 - Schizophrenia, unspecified Assessment and Plan Patient is a 52-year-old male who came in under [employer] act for refusing indications, food and drink. He is now admitted to medical psychiatry for further evaluation. Consulted for medical management. Schizophrenia - Managed by psychiatry team - Patient continues to refuse medications - Patient does not have any family, lives in [facility]. Psychiatry considering mental health court to assign healthcare advocate. Refusal of medications, food, drinks - Urine toxicology negative. Chemistry showed low protein and low albumin otherwise within normal. Complete blood count without any abnormality except for slightly elevated mono percentage. - Orders to check UA. Check TSH, vitamin D, vitamin B12. Patient continues to refuse lab work. - Most likely patient refusal is secondary to his schizophrenia, psychiatry team continues to encourage patient to comply with medication treatment. DVT prop encourage ambulation Zhane Womack Aug 23, 2017 08:22
[2017-08-23] MEDS: FERROUS SULFATE 325 MG (65 MG ELEMENTAL IRON) TAB PO SCH ×2 (09:00→16:50)
[2017-08-23] MEDS: MULTIVITAMIN TAB PO SCH (09:00)
[2017-08-23] MEDS: CALCIUM CARBONATE 1.25 GM (CA 500 MG) TAB PO SCH (09:00)
[2017-08-23] MEDS: POLYETHYLENE GLYCOL 17 GM PKG PO SCH (09:00)
[2017-08-23] MEDS: risperiDONE 1 MG TAB PO SCH (09:00)
[2017-08-23] MEDS: FOLIC ACID 1 MG TAB PO SCH (09:00)
[2017-08-23] MEDS: NICOTINE 21 MG/24 HR PATCH T-DERMAL SCH (09:00)
--- NOTE | 2017-08-23 11:26 | HHI.PYPN ---
Subjective Remarks Patient seen for follow-up, chart reviewed. Nursing staff reported that patient continues to refuse medications continues to collect personal hygiene, was noted to have left feces wrapped in a paper towels/20 paper. Since last evening. Patient was found lying in hospital bed noted to be malodorous noted to have sheets unkempt, with his shirt of his pajamas to be staying with feces. Upon greeting patient patient set up and responded to his name stating feeling "alright" and remained propped up by his elbows and refused to continue conversation. Patient was noted to be looking around the room but did not want to have eye contact with press writer nor nurse. Discussion about compliance to treatment as well as maintenance personal hygiene was admitted to reviewed Review of Systems Except as stated in HPI: all other systems reviewed are Neg Mental Status Examination Appearance: Disheveled, Malodorous Consciousness: Alert Orientation: Person (stated that his name was not Fausto Narvaez) Motor Activity: Normal gait Speech: Other (selectively mute) Language: Other (limited medication) Fund of Knowledge: Inadequate Attention and Concentration: Inadequate Memory: Unremarkable, Impaired (to assess as pt is selectively mute. ) Mood: Irritable Affect: Flat Thought Process & Associations: Disorganized (as observed via behaviors), Other Thought Content: Other (paranoid) Hallucination Type: Other (appears internally stimulated) Delusion Type: Paranoid, Other (unknown as patient refuses to participate in interview) Suicidal Ideation: No (unknown as patient refuses to participate in interview) Suicidal Plan: No Suicidal Intention: No Homicidal Ideation: No Homicidal Plan: No Homicidal Intention: No Insight: Poor Judgment: Poor Results Vitals/IOs Vital Signs Date Time Temp Pulse Resp B/P (MAP) Pulse Ox O2 Delivery O2 Flow Rate FiO2 08/23/17 06:11 97.5 77 18 137/69 (91) 96 Assessment & Plan Problem List: (1) Schizophrenia ICD Codes: F20.9 - Schizophrenia, unspecified Assessment & Plan Patient continues to refuse treatments, with very limited interaction with interview although patient did respond to his name and stated feeling "alright" for the first time with the press writer today since admission. Patient also has had limited verbal interactions with nursing staff but is noted to be eating well and sleeping well but has not maintained hygiene as he is malodorous with soiled hospital gowns. We'll attempt to have patient shower today and have his bedsheets changed. Patient has no family or contact center assistant service healthcare advocate and therefore will have to go to mental health Court to have what assigned to him and noted to start treatment over objection this patient currently refusing any by mouth medications at this time. Continue admission as per medical team. Discharge planning in progress. Justification for Cont. Inpt. At risk for further decompensation at lower level of care Discharge Planning Patient return back to his [facility] when psychiatrically stable Request HC Surrog/Guard Advoc?: Yes Trenton Callaway MD Aug 23, 2017 11:26
[2017-08-23 18:00] VITALS: BP 140/74; PULSE 78; RESP 19; TEMP 97.6; O2SAT 98
[2017-08-23] MEDS: REMOVE OLD NICOTINE PATCH T-DERMAL SCH (21:00)
--- NOTE | 2017-08-24 07:37 | HHI.PYPN ---
Subjective Remarks Patient seen for follow-up, chart reviewed. Discussion she staff reported the patient continues to refuse to interact verbally with staff, refusing everything including blood work, medications but is eating and drinking and shower yesterday. Patient found lying in hospital bed when addressed had approached with good morning patient responded with "good morning" sitting up but then after realizing that he was speaking with newswriter and nurse patient assumed his previous position of being propped up on his elbows with poor eye contact and refusing to continue to speak. Patient was refusing to even not to answer questions but did hear denied yes when asked if he knew he was at the hospital. Patient encouraged to comply with treatment as well as comply with workup (labwork). Review of Systems Except as stated in HPI: all other systems reviewed are Neg Mental Status Examination Appearance: Disheveled (unshaven) Consciousness: Alert Orientation: Person (stated that his name was not Fausto Narvaez) Motor Activity: Normal gait Speech: Other (selectively mute) Language: Other (limited) Fund of Knowledge: Inadequate Attention and Concentration: Inadequate Memory: Unremarkable, Impaired (to assess as pt is selectively mute. ) Mood: Irritable Affect: Flat, Other (noted to have darting eye contact) Thought Process & Associations: Disorganized (as observed via behaviors), Other Thought Content: Other (paranoid) Hallucination Type: Other (appears internally stimulated) Delusion Type: Paranoid, Other (unknown as patient refuses to participate in interview) Suicidal Ideation: No (unknown as patient refuses to participate in interview) Suicidal Plan: No Suicidal Intention: No Homicidal Ideation: No Homicidal Plan: No Homicidal Intention: No Insight: Poor Judgment: Poor Results Vitals/IOs Vital Signs Date Time Temp Pulse Resp B/P (MAP) Pulse Ox O2 Delivery O2 Flow Rate FiO2 08/23/17 18:00 97.6 78 19 140/74 (96) 98 Intake and Output 08/24/17 08/24/17 08/25/17 08:00 16:00 00:00 Intake Total 120 ml Balance 120 ml Assessment & Plan Problem List: (1) Schizophrenia ICD Codes: F20.9 - Schizophrenia, unspecified Assessment & Plan Patient at this time continues to be selectively mute, noted to have hypervigilance and darting eye contact during interview; appearing paranoid and internally preoccupied. We'll continue to encourage patient to comply with treatment as well as blood work. Continue to encourage patient to maintain personal hygiene as well as maintain adequate by mouth intake. We'll reorder lab work today. Pain patient will present to mental health court tomorrow for addition for involuntary hospitalization. As well as for healthcare surrogate a guardian advocate as patient may require treatment over objection to treat current psychosis. Discharge planning in progress Justification for Cont. Inpt. At risk for further decompensation at lower level of care Discharge Planning To be determined Request HC Surrog/Guard Advoc?: Yes Trenton Callaway MD Aug 24, 2017 07:37
[2017-08-24 08:20] VITALS: BP 159/97; PULSE 95; RESP 22; O2SAT 91
[2017-08-24] MEDS: MULTIVITAMIN TAB PO SCH (09:00)
[2017-08-24] MEDS: CALCIUM CARBONATE 1.25 GM (CA 500 MG) TAB PO SCH (09:00)
[2017-08-24] MEDS: POLYETHYLENE GLYCOL 17 GM PKG PO SCH (09:00)
[2017-08-24] MEDS: NICOTINE 21 MG/24 HR PATCH T-DERMAL SCH (09:00)
[2017-08-24] MEDS: FOLIC ACID 1 MG TAB PO SCH (09:00)
[2017-08-24] MEDS: FERROUS SULFATE 325 MG (65 MG ELEMENTAL IRON) TAB PO SCH ×2 (09:00→17:08)
[2017-08-24] MEDS ORDERED: LORazepam 2 MG/ML VIAL ONE (12:17)
[2017-08-24] MEDS ORDERED: HALOPERIDOL LACTATE 5 MG/ML AMP ONE (12:17)
[2017-08-24] MEDS ORDERED: LORazepam 2 MG/ML VIAL IM ONE (12:45)
[2017-08-24] MEDS ORDERED: HALOPERIDOL LACTATE 5 MG/ML AMP IM ONE (12:45)
[2017-08-24 13:35] LABS: AUTOMATED NEUTROPHIL # 4.2 TH/MM3 (1.8-7.7); BASOPHIL % 0.6 % (0.0-2.0); EOSINOPHIL # 0.3 TH/MM3 (0-0.4); EOSINOPHIL % 4.5 % (0.0-4.0); HEMATOCRIT 39.9 % (39.0-51.0); HEMOGLOBIN 13.8 GM/DL (13.0-17.0); LYMPH % 20.8 % (9.0-44.0); LYMPHOCYTE # 1.3 TH/MM3 (1.0-4.8); MEAN CELL VOLUME 93.7 FL (80.0-100.0); MEAN CORPUSCULAR HEMOGLOBIN 32.4 PG (27.0-34.0); MEAN CORPUSCULAR HGB CONC 34.5 % (32.0-36.0); MEAN PLATELET VOLUME 9.2 FL (7.0-11.0); MONO % 9.4 % (0.0-8.0); MONOCYTE # 0.6 TH/MM3 (0-0.9); NEUT % 64.7 % (16.0-70.0); PLATELET COUNT 236 TH/MM3 (150-450); RED BLOOD COUNT 4.25 MIL/MM3 (4.50-5.90); RED CELL DISTRIBUTION WIDTH 13.8 % (11.6-17.2); WHITE BLOOD COUNT 6.4 TH/MM3 (4.0-11.0)
[2017-08-24 14:01] LABS: ALBUMIN 2.8 GM/DL (3.4-5.0); AST (GOT) 29 U/L (15-37); BICARBONATE 27.8 MEQ/L (21.0-32.0); BLOOD UREA NITROGEN 13 MG/DL (7-18); CALCIUM 8.7 MG/DL (8.5-10.1); CHLORIDE 104 MEQ/L (98-107); CHOLESTEROL 116 MG/DL (120-200); CREATININE 0.79 MG/DL (0.60-1.30); GLOMERULAR FILTRATION RATE 102 ML/MIN (>89); GLUCOSE,RANDOM 77 MG/DL (74-106); SODIUM (NA) 136 MEQ/L (136-145)
[2017-08-24 14:27] LABS: ALKALINE PHOSPHATASE 92 U/L (45-117); ALT (GPT) 28 U/L (12-78); HDL CHOLESTEROL 52.7 MG/DL (40.0-60.0); LDL CHOLESTEROL 54 MG/DL (0-99); TOTAL BILIRUBIN ADULT 0.2 MG/DL (0.2-1.0); TOTAL PROTEIN 9.4 GM/DL (6.4-8.2); TRIGLYCERIDES 47 MG/DL (42-150)
[2017-08-24 15:38] VITALS: BP 135/65; PULSE 67; RESP 18; TEMP 97.6; O2SAT 100
--- NOTE | 2017-08-24 16:28 | HHI.PR ---
Subjective Remarks Follow-up visit on 52-year-old male admitted to medical psychiatry unit due to refusal of medications, food, drinks well living in [facility]. Patient seen in his room resting in bed, there is feces on the floor from bathroom to bed. Nurse states that patient has been defecating on bathroom floor and then picking stool up and putting it in the toilet. He appears comfortable but does not make eye contact with me. He is not verbal and does not indicate if he is in pain or distress. He does not give me permission to examine him. Objective Vitals Vital Signs Date Time Temp Pulse Resp B/P (MAP) Pulse Ox O2 Delivery O2 Flow Rate FiO2 08/24/17 15:38 97.6 67 18 135/65 (88) 100 08/24/17 08:20 95 22 159/97 (117) 91 08/23/17 18:00 97.6 78 19 140/74 (96) 98 I/O 08/23/17 08/23/17 08/23/17 08/24/17 08/24/17 08/24/17 07:00 15:00 23:00 07:00 15:00 23:00 Intake Total 760 ml 120 ml 120 ml 360 ml Balance 760 ml 120 ml 120 ml 360 ml Intake Oral 760 ml 120 ml 120 ml 360 ml # Voids 1 4 2 # Bowel Movements 1 Result Diagram: 08/24/17 1317 08/24/17 1317 Imaging Last Impressions Head CT 08/18/17 0000 Signed Impressions: Service Date/Time: July 17:17 - CONCLUSION: 1. Limited examination due to patient positioning and motion. 2. No gross acute intracranial abnormality. 3. Right maxillary sinus mucosal disease. Harlan Riley MD Objective Remarks Examination is limited patient does not make eye contact, he is nonverbal. A/P Problem List: (1) Schizophrenia ICD Code: F20.9 - Schizophrenia, unspecified Assessment and Plan Patient is a 52-year-old male who came in under [employer] act for refusing indications, food and drink. He is now admitted to medical psychiatry for further evaluation. Consulted for medical management. Schizophrenia - Managed by psychiatry team - Patient continues to refuse medications. Was given Haldol and Ativan IM today. - Patient does not have any family, lives in [facility]. Patient will have mental health court tomorrow for involuntary hospitalization. Refusal of medications, food, drinks - Patient has been eating and drinking, but continues to refuse medications. - Labs were obtained today. CBC reviewed RBC 4.25, monocytes 9.4 and Eosinophils 4.5 otherwise unremarkable. BMP reviewed total protein 9.4, albumin 2.8, otherwise unremarkable. Lipid panel with cholesterol 116, B12 1063, and vitamin D 27.3, mildly low. Urine tox negative. - Most likely patient refusal is secondary to his schizophrenia, psychiatry team continues to encourage patient to comply with medication treatment, mental health court tomorrow. - VSS DVT prop encourage ambulation Zhane Womack Aug 24, 2017 16:28
[2017-08-24 16:40] LABS: HEMOGLOBIN A1C 5.9 % (4.3-6.0)
[2017-08-24 18:00] VITALS: BP 123/75; PULSE 94; RESP 18; TEMP 97.4; O2SAT 100
[2017-08-24] MEDS: REMOVE OLD NICOTINE PATCH T-DERMAL SCH (20:14)
[2017-08-25 06:07] VITALS: BP 119/72; PULSE 89; RESP 16; TEMP 97.5; O2SAT 96
--- NOTE | 2017-08-25 08:21 | HHI.PR ---
Subjective Remarks Follow-up visit on 52-year-old male admitted to medical psychiatry unit due to refusal of medications, food, drinks well living in [facility]. Patient seen in his room, he continues to be nonverbal and does not make eye contact. Spoke with nurse who states patient got Haldol yesterday and responded very well afterwards. Patient was able to follow directions well and participated in washing up. Nurse mentions to me that patient had some kind of scars under bilateral axillas, not sure if there was any open skin as he was unable to fully assess. Mental health court today for involuntary hospitalization. Objective Vitals Vital Signs Date Time Temp Pulse Resp B/P (MAP) Pulse Ox O2 Delivery O2 Flow Rate FiO2 08/25/17 06:07 97.5 89 16 119/72 (88) 96 08/24/17 18:00 97.4 94 18 123/75 (91) 100 08/24/17 15:38 97.6 67 18 135/65 (88) 100 08/24/17 08:20 95 22 159/97 (117) 91 I/O 08/24/17 08/24/17 08/24/17 08/25/17 08/25/17 08/25/17 07:00 15:00 23:00 07:00 15:00 23:00 Intake Total 120 ml 360 ml 840 ml 0 ml Output Total 3 ml Balance 120 ml 360 ml 837 ml 0 ml Intake Oral 120 ml 360 ml 840 ml 0 ml Output Urine Total 3 ml # Voids 2 1 # Bowel Movements 2 1 Result Diagram: 08/24/17 1317 08/24/17 1317 Imaging Last Impressions Head CT 08/18/17 0000 Signed Impressions: Service Date/Time: July 17:17 - CONCLUSION: 1. Limited examination due to patient positioning and motion. 2. No gross acute intracranial abnormality. 3. Right maxillary sinus mucosal disease. Harlan Riley MD Objective Remarks Examination is limited patient does not make eye contact, he is nonverbal. Sitting up in bed, does not appear to be in any distress, breathing comfortably. No leg edema noted on observation, skin exam limited. A/P Problem List: (1) Schizophrenia ICD Code: F20.9 - Schizophrenia, unspecified Assessment and Plan Patient is a 52-year-old male who came in under [employer] act for refusing indications, food and drink. He is now admitted to medical psychiatry for further evaluation. Consulted for medical management. Schizophrenia - Managed by psychiatry team - Patient continues to refuse medications - Patient does not have any family, lives in [facility]. - Mental health court today to assign healthcare advocate. Refusal of medications, food, drinks - Patient has been eating and drinking, but continues to refuse medications. - Labs were obtained 08/24 CBC reviewed RBC 4.25, monocytes 9.4 and Eosinophils 4.5 otherwise unremarkable. BMP reviewed total protein 9.4, albumin 2.8, otherwise unremarkable. Lipid panel with cholesterol 116, B12 1063, and vitamin D 27.3, mildly low. Urine tox negative. - Most likely patient refusal is secondary to his schizophrenia, psychiatry team continues to encourage patient to comply with medication treatment, mental health court today. - VSS ?axilla scaring - Once patient starts medications I imagine will be a lot more cooperative, will assess skin in the future. - afebrile DVT prop encourage ambulation Zhane Womack Aug 25, 2017 08:21
[2017-08-25] MEDS: NICOTINE 21 MG/24 HR PATCH T-DERMAL SCH (09:00)
[2017-08-25] MEDS: MULTIVITAMIN TAB PO SCH (09:00)
[2017-08-25] MEDS: FOLIC ACID 1 MG TAB PO SCH (09:00)
[2017-08-25] MEDS: CALCIUM CARBONATE 1.25 GM (CA 500 MG) TAB PO SCH (09:00)
[2017-08-25] MEDS: FERROUS SULFATE 325 MG (65 MG ELEMENTAL IRON) TAB PO SCH ×2 (09:00→18:00)
[2017-08-25] MEDS: POLYETHYLENE GLYCOL 17 GM PKG PO SCH (09:00)
--- NOTE | 2017-08-25 16:07 | HHI.PYPN ---
Subjective Remarks Patient seen for follow-up, chart reviewed. Discussion she staff reported the patient continues to have fecal incontinence or deliberately defecating in bed. Patient was found lying down asleep and when injured her room patient was able to respond "good morning" but then continued with poor eye contact and staring away from staff writer. They was able to express wanting to go home, agreed to take his medications and maintains personal hygiene and when prompted to take a shower after interview patient said that he had taken a shower yesterday and did not need to today. Patient was taken to mental health Court but refused to attend and was maintained for involuntary hospitalization for stabilization. Patient was appointed an [facility] guardian advocate. Review of Systems Except as stated in HPI: all other systems reviewed are Neg Mental Status Examination Appearance: Disheveled (unshaven), Malodorous Consciousness: Alert Orientation: Person (stated that his name was not Fausto Narvaez) Motor Activity: Normal gait Speech: Hesitant Language: Other (limited) Fund of Knowledge: Inadequate Attention and Concentration: Inadequate Memory: Unremarkable Mood: Irritable Affect: Flat, Other (noted to have darting eye contact) Thought Process & Associations: Other (concrete) Thought Content: Other (paranoid) Hallucination Type: Other (appears internally stimulated) Delusion Type: Paranoid, Other (unknown as patient refuses to participate in interview) Suicidal Ideation: No (unknown as patient refuses to participate in interview) Suicidal Plan: No Suicidal Intention: No Homicidal Ideation: No Homicidal Plan: No Homicidal Intention: No Insight: Poor Judgment: Poor Results Vitals/IOs Vital Signs Date Time Temp Pulse Resp B/P (MAP) Pulse Ox O2 Delivery O2 Flow Rate FiO2 08/25/17 06:07 97.5 89 16 119/72 (88) 96 Intake and Output 08/25/17 08/25/17 08/25/17 07:59 15:59 23:59 Intake Total 0 ml 1200 ml Balance 0 ml 1200 ml Assessment & Plan Problem List: (1) Schizophrenia ICD Codes: F20.9 - Schizophrenia, unspecified Assessment & Plan Patient has begun to become engaging verbally with staff writer and staff today expressing wanted to be discharged home and agreed to comply with treatment as well as maintain personal hygiene on the unit. We will continue current treatment as patient has not been compliant therefore no changes indicated at this time. Continue to monitor mood and behavior continue to encourage maintenance of personal hygiene as well as participation in groups and activities while on the unit. Continue recommendations from her medical team. Patient retained for involuntary hospitalization as per mental health court, was assigned [employer] as guardian advocate. Discharge planning in progress Justification for Cont. Inpt. At risk for further decompensation if at lower level of care Discharge Planning To return back to his [facility] once psychiatrically stable Request HC Surrog/Guard Advoc?: Yes Trenton Callaway MD Aug 25, 2017 16:07
[2017-08-25] MEDS ORDERED: HALOPERIDOL LACTATE 5 MG/ML AMP ONE (18:44)
[2017-08-25] MEDS: REMOVE OLD NICOTINE PATCH T-DERMAL SCH (20:42)
[2017-08-25] MEDS: risperiDONE 1 MG TAB PO SCH (20:43)
[2017-08-25] MEDS: HALOPERIDOL LACTATE 5 MG/ML AMP IM SCH (21:00)
[2017-08-26 06:15] VITALS: BP 129/73; PULSE 76; RESP 18; TEMP 97.3; O2SAT 95
[2017-08-26] MEDS: FOLIC ACID 1 MG TAB PO SCH (07:42)
[2017-08-26] MEDS: FERROUS SULFATE 325 MG (65 MG ELEMENTAL IRON) TAB PO SCH ×2 (07:42→17:31)
[2017-08-26] MEDS: POLYETHYLENE GLYCOL 17 GM PKG PO SCH (07:42)
[2017-08-26] MEDS: risperiDONE 1 MG TAB PO SCH ×2 (07:43→21:19)
[2017-08-26] MEDS: MULTIVITAMIN TAB PO SCH (07:43)
[2017-08-26] MEDS: NICOTINE 21 MG/24 HR PATCH T-DERMAL SCH (07:43)
[2017-08-26] MEDS: CALCIUM CARBONATE 1.25 GM (CA 500 MG) TAB PO SCH (07:43)
--- NOTE | 2017-08-26 07:56 | HHI.PR ---
Subjective Remarks Follow-up visit on 52-year-old male admitted to medical psychiatry unit due to refusal of medications, food, drinks well living in [facility]. Patient had metal court yesterday and was appointed a guardian from [employer]. Patient continues to be nonverbal, does not make eye contact. He does not verbalize any concerns or complaints. Objective Vitals Vital Signs Date Time Temp Pulse Resp B/P (MAP) Pulse Ox O2 Delivery O2 Flow Rate FiO2 08/26/17 06:15 97.3 76 18 129/73 (91) 95 I/O 08/25/17 08/25/17 08/25/17 08/26/17 08/26/17 08/26/17 07:00 15:00 23:00 07:00 15:00 23:00 Intake Total 0 ml 1200 ml 1200 ml 0 ml Output Total 3 ml Balance 0 ml 1200 ml 1197 ml 0 ml Intake Oral 0 ml 1200 ml 1200 ml 0 ml Output Urine Total 3 ml # Voids 1 1 1 # Bowel Movements 1 1 Result Diagram: 08/24/17 1317 08/24/17 1317 Imaging Last Impressions Head CT 08/18/17 0000 Signed Impressions: Service Date/Time: July 17:17 - CONCLUSION: 1. Limited examination due to patient positioning and motion. 2. No gross acute intracranial abnormality. 3. Right maxillary sinus mucosal disease. Harlan Riley MD Objective Remarks Examination is limited patient does not make eye contact, he is nonverbal. Sitting up in bed, eating breakfast, does not appear uncomfortable, looking around the room, breathing comfortably. No leg edema noted on observation, skin exam limited. A/P Problem List: (1) Schizophrenia ICD Code: F20.9 - Schizophrenia, unspecified Assessment and Plan Patient is a 52-year-old male who came in under [employer] act for refusing indications, food and drink. He is now admitted to medical psychiatry for further evaluation. Consulted for medical management. Schizophrenia - Managed by psychiatry team - Patient continues to refuse medications - Patient does not have any family, lives in [facility]. - Mental health court with assigned health palliative care nurse practitioner. - Patient will receive medications with involuntary hospitalization. Nurse will receive medications with consent of [facility]. Refusal of medications, food, drinks - Patient has been eating and drinking, but continues to refuse medications. - Labs were obtained / CBC reviewed RBC 4.25, monocytes 9.4 and Eosinophils 4.5 otherwise unremarkable. BMP reviewed total protein 9.4, albumin 2.8, otherwise unremarkable. Lipid panel with cholesterol 116, B12 1063, and vitamin D 27.3, mildly low. Urine tox negative. - Most likely patient refusal is secondary to his schizophrenia, psychiatry team continues to encourage patient to comply with medication treatment, now with health palliative care nurse practitioner. - VSS ?axilla scaring - Once patient starts medications I imagine will be a lot more cooperative, will assess skin in the future. - afebrile DVT prop encourage ambulation Zhane Womack Aug 26, 2017 07:56
[2017-08-26] MEDS: HALOPERIDOL LACTATE 5 MG/ML AMP IM SCH ×2 (09:42→21:00)
--- NOTE | 2017-08-26 10:26 | HHI.PYPN ---
Subjective Remarks Patient seen for follow-up, chart reviewed. Discussion she staff reported patient is eating continues to be selectively mute. Patient was found looking at his paper earlier and cutting out what appears to be coupons. Patient was found sitting on a hospital chair noted to be superficially cooperative in interview but was able to converse with engineering writer today. Patient states that he wishes to be discharged back to his [facility] and was reminded of his continue compliant with treatment, maintenance of personal hygiene prior to being discharged back to his [facility]. Patient agreed to take medications by mouth. Patient was encouraged to take a shower today which he stated he had done so earlier today. When asked about perceptual disturbances or delusions patient states that engineering writer was asking too many questions for today and did not want to continue interview. Review of Systems Except as stated in HPI: all other systems reviewed are Neg Mental Status Examination Appearance: Disheveled (unshaven) Consciousness: Alert Orientation: Person (stated that his name was not Fausto Narvaez) Motor Activity: Normal gait Speech: Hesitant Language: Other (limited) Fund of Knowledge: Inadequate Attention and Concentration: Inadequate Memory: Unremarkable Mood: Irritable (less so today) Affect: Flat, Other (noted to have darting eye contact) Thought Process & Associations: Linear, Other (concrete) Thought Content: Other (paranoid) Hallucination Type: Other (appears internally stimulated) Delusion Type: Paranoid, Other (unknown as patient refuses to participate in interview) Suicidal Ideation: No (unknown as patient refuses to continue interview) Suicidal Plan: No Suicidal Intention: No Homicidal Ideation: No Homicidal Plan: No Homicidal Intention: No Insight: Poor Judgment: Poor Results Vitals/IOs Vital Signs Date Time Temp Pulse Resp B/P (MAP) Pulse Ox O2 Delivery O2 Flow Rate FiO2 08/26/17 06:15 97.3 76 18 129/73 (91) 95 Intake and Output 08/26/17 08/26/17 08/27/17 08:00 16:00 00:00 Intake Total 240 ml Balance 240 ml Assessment & Plan Problem List: (1) Schizophrenia ICD Codes: F20.9 - Schizophrenia, unspecified Assessment & Plan Patient at this time continues to be noted to be somewhat internally preoccupied , paranoid as his behavior is noted to have hypervigilance and darting eye contact during interview as well as any with the passes by the hallway. Patient was able to engage in interview with engineering writer today stating that he discontinue wish to go back to his [facility] and was able to acknowledge that he needed to continue his treatment as well as maintain personal hygiene prior to being discharged back to his residential facility. Patient was taken to mental health Court yesterday and was retained for involuntary hospitalization for stabilization. Will order EKG to assess QTc this patient currently on antipsychotic treatment.. Continue to encourage patient to adhere to treatment as well as to maintain personal hygiene. Continue to encourage patient to participate in groups and activities. Discharge planning in progress Justification for Cont. Inpt. At risk for further decompensation if at lower level of care Discharge Planning To return back to his [facility] when psychiatrically stable Request HC Surrog/Guard Advoc?: Yes Trenton Callaway MD Aug 26, 2017 10:26
[2017-08-26 18:00] VITALS: BP 128/66; PULSE 86; RESP 18; TEMP 98.2; O2SAT 95
[2017-08-26] MEDS: REMOVE OLD NICOTINE PATCH T-DERMAL SCH (21:00)
--- NOTE | 2017-08-26 21:04 | EKG ---
Date Performed: 08/26/2017 Time Performed: 11:17:07 PTAGE: 52 years EKG: Sinus rhythm BORDERLINE ECG NO PREVIOUS TRACING DOCTOR: Ankit Vance Interpretating Date/Time 08/26/2017 21:03:49
[2017-08-26] MEDS: LORazepam 1 MG TAB PO PRN (21:19)
[2017-08-27] MEDS: MULTIVITAMIN TAB PO SCH (08:14)
[2017-08-27] MEDS: POLYETHYLENE GLYCOL 17 GM PKG PO SCH (08:14)
[2017-08-27] MEDS: FOLIC ACID 1 MG TAB PO SCH (08:14)
[2017-08-27] MEDS: NICOTINE 21 MG/24 HR PATCH T-DERMAL SCH (08:14)
[2017-08-27] MEDS: CALCIUM CARBONATE 1.25 GM (CA 500 MG) TAB PO SCH (08:14)
[2017-08-27] MEDS: risperiDONE 1 MG TAB PO SCH ×2 (08:14→21:21)
[2017-08-27] MEDS: FERROUS SULFATE 325 MG (65 MG ELEMENTAL IRON) TAB PO SCH ×2 (08:14→18:00)
[2017-08-27] MEDS: HALOPERIDOL LACTATE 5 MG/ML AMP IM SCH ×2 (08:25→21:00)
--- NOTE | 2017-08-27 08:32 | HHI.PR ---
Subjective Remarks Patient is in bed more cooperative today, however he says he his skin and axilla is fine and doesn't let me examine the axilla. Deneis having any pain. No sob, palpitations. no n/v/d/c. Objective Vitals Vital Signs Date Time Temp Pulse Resp B/P (MAP) Pulse Ox O2 Delivery O2 Flow Rate FiO2 08/26/17 18:00 98.2 86 18 128/66 (86) 95 I/O 08/26/17 08/26/17 08/26/17 08/27/17 08/27/17 08/27/17 07:00 15:00 23:00 07:00 15:00 23:00 Intake Total 0 ml 480 ml 240 ml 0 ml Balance 0 ml 480 ml 240 ml 0 ml Intake Oral 0 ml 480 ml 240 ml 0 ml # Voids 1 2 Result Diagram: 08/24/17 1317 08/24/17 1317 Imaging Last Impressions Head CT 08/18/17 0000 Signed Impressions: Service Date/Time: July 17:17 - CONCLUSION: 1. Limited examination due to patient positioning and motion. 2. No gross acute intracranial abnormality. 3. Right maxillary sinus mucosal disease. Harlan Riley MD Objective Remarks GENERAL: Does not appear in acute distress. More cooperative today, let me examine but not the axilla. CARDIOVASCULAR: Regular rate and rhythm. RESPIRATORY: No accessory muscle use. Clear to auscultation. Breath sounds equal bilaterally. GASTROINTESTINAL: Abdomen soft, non-tender, nondistended. Hepatic and splenic margins not palpable. MUSCULOSKELETAL: Extremities without clubbing, cyanosis, or edema. No obvious deformities. NEUROLOGICAL: Awake and alert. No obvious cranial nerve deficits. Motor grossly within normal limits. Five out of 5 muscle strength in the arms and legs. Normal speech. PSYCHIATRIC: Inappropriate mood and flat affect A/P Problem List: (1) Schizophrenia ICD Code: F20.9 - Schizophrenia, unspecified Assessment and Plan Patient is a 52-year-old male who came in under [employer] act for refusing indications, food and drink. He is now admitted to medical psychiatry for further evaluation. Consulted for medical management. Schizophrenia - Managed by psychiatry team - Patient continues to refuse medications - Patient does not have any family, lives in [facility]. - Mental health court with assigned health healthcare analyst. - Patient will receive medications with involuntary hospitalization. Nurse will receive medications with consent of [employer]. Refusal of medications, food, drinks - Patient has been eating and drinking, but continues to refuse medications. - Labs were obtained / CBC reviewed RBC 4.25, monocytes 9.4 and Eosinophils 4.5 otherwise unremarkable. BMP reviewed total protein 9.4, albumin 2.8, otherwise unremarkable. Lipid panel with cholesterol 116, B12 1063, and vitamin D 27.3, mildly low. Urine tox negative. - Most likely patient refusal is secondary to his schizophrenia, psychiatry team continues to encourage patient to comply with medication treatment, now with health healthcare analyst. - VSS ?axilla scaring - Once patient starts medications I imagine will be a lot more cooperative, will assess skin in the future. - afebrile DVT prop encourage ambulation Hailee Toledo MD Aug 27, 2017 08:32
--- NOTE | 2017-08-27 13:32 | HHI.PYPN ---
Subjective Remarks Remains psychotic with paranoia. Review of Systems ROS Limitations: Clinical Condition Psychiatric: COMPLAINS OF: Anxiety Except as stated in HPI: all other systems reviewed are Neg Mental Status Examination Appearance: Disheveled (unshaven) Consciousness: Alert Orientation: Person (stated that his name was not Fausto Narvaez) Motor Activity: Normal gait Speech: Hesitant Language: Other (limited) Fund of Knowledge: Inadequate Attention and Concentration: Inadequate Memory: Unremarkable Mood: Irritable (less so today) Affect: Flat, Other (noted to have darting eye contact) Thought Process & Associations: Linear, Other (concrete) Thought Content: Other (paranoid) Hallucination Type: Other (appears internally stimulated) Delusion Type: Paranoid, Other (unknown as patient refuses to participate in interview) Suicidal Ideation: No (unknown as patient refuses to continue interview) Suicidal Plan: No Suicidal Intention: No Homicidal Ideation: No Homicidal Plan: No Homicidal Intention: No Insight: Poor Judgment: Poor Results Vitals/IOs Vital Signs Date Time Temp Pulse Resp B/P (MAP) Pulse Ox O2 Delivery O2 Flow Rate FiO2 08/26/17 18:00 98.2 86 18 128/66 (86) 95 Intake and Output 08/27/17 08/27/17 08/28/17 08:00 16:00 00:00 Intake Total 360 ml 360 ml Balance 360 ml 360 ml Assessment & Plan Problem List: (1) Schizophrenia ICD Codes: F20.9 - Schizophrenia, unspecified Assessment & Plan Estimated LOS: days. Reviewed laboratory results. Continuing to observe and evaluate patient's response to antipsychotic medication. Patient still paranoid. Justification for Cont. Inpt. Likely to decompensate at lower level of care. Request HC Surrog/Guard Advoc?: Yes Ishaan Simons MD Aug 27, 2017 13:32
[2017-08-27] MEDS: REMOVE OLD NICOTINE PATCH T-DERMAL SCH (21:00)
[2017-08-28 07:16] VITALS: BP 147/70; PULSE 64; RESP 18; TEMP 97.5; O2SAT 96
[2017-08-28] MEDS: FERROUS SULFATE 325 MG (65 MG ELEMENTAL IRON) TAB PO SCH ×2 (09:14→18:31)
[2017-08-28] MEDS: CALCIUM CARBONATE 1.25 GM (CA 500 MG) TAB PO SCH (09:14)
[2017-08-28] MEDS: MULTIVITAMIN TAB PO SCH (09:14)
[2017-08-28] MEDS: risperiDONE 1 MG TAB PO SCH ×2 (09:14→20:49)
[2017-08-28] MEDS: FOLIC ACID 1 MG TAB PO SCH (09:14)
[2017-08-28] MEDS: POLYETHYLENE GLYCOL 17 GM PKG PO SCH ×2 (09:15→09:23)
[2017-08-28] MEDS: NICOTINE 21 MG/24 HR PATCH T-DERMAL SCH (09:17)
[2017-08-28] MEDS: HALOPERIDOL LACTATE 5 MG/ML AMP IM SCH ×2 (09:20→20:50)
--- NOTE | 2017-08-28 09:54 | HHI.PR ---
Subjective Remarks NO CURRENT COMPLAINTS WAS NONVERBAL WHEN SEEN WITH RN HAS BEEN REFUSING HIS MEDICATIONS PREVIOUSLY Objective Vitals Vital Signs Date Time Temp Pulse Resp B/P (MAP) Pulse Ox O2 Delivery O2 Flow Rate FiO2 08/28/17 07:16 97.5 64 18 147/70 (95) 96 I/O 08/27/17 08/27/17 08/27/17 08/28/17 08/28/17 08/28/17 07:00 15:00 23:00 07:00 15:00 23:00 Intake Total 0 ml 720 ml 360 ml 360 ml 600 ml Balance 0 ml 720 ml 360 ml 360 ml 600 ml Intake Oral 0 ml 720 ml 360 ml 360 ml 600 ml # Voids 2 4 1 Result Diagram: 08/24/17 1317 08/24/17 1317 Imaging Last Impressions Head CT 08/18/17 0000 Signed Impressions: Service Date/Time: July 17:17 - CONCLUSION: 1. Limited examination due to patient positioning and motion. 2. No gross acute intracranial abnormality. 3. Right maxillary sinus mucosal disease. Harlan Riley MD Objective Remarks GENERAL: AWAKE AND ALERT - NONVERBAL DURING MY EXAM SKIN: Warm and dry. HEAD: Atraumatic. Normocephalic. EYES: Pupils equal and round. No scleral icterus. No injection or drainage. EOMI ENT: No nasal bleeding or discharge. Mucous membranes pink and moist. NECK: Trachea midline. No JVD. SUPPLE CARDIOVASCULAR: Regular rate and rhythm. S1, S2 NO S3 OR S4 RESPIRATORY: No accessory muscle use. Clear to auscultation. Breath sounds equal bilaterally. GASTROINTESTINAL: Abdomen soft, non-tender, nondistended. Hepatic and splenic margins not palpable. MUSCULOSKELETAL: Extremities without clubbing, cyanosis, or edema. No obvious deformities. NEUROLOGICAL: Awake and alert. No obvious cranial nerve deficits. Motor grossly within normal limits. 4 out of 5 muscle strength in the arms and legs. Normal speech. PSYCHIATRIC: INAppropriate mood and affect; insight and judgment ABnormal. WAS NONVERBAL DURING MY EXAM Medications and IVs Current Medications Lorazepam (Ativan) 1 mg Q6H PRN PO MODERATE TO SEVERE ANXIETY Last administered on 08/26/17at 21:19; Start 08/19/17 at 00:15; Status Future hold Lorazepam (Ativan Inj) 1 mg Q6H PRN IM MODERATE TO SEVERE ANXIETY; Start 08/19 at 00:15; Status Future hold Acetaminophen (Tylenol) 650 mg Q4H PRN PO Pain 1-5 or Temp >101F; Start at 00:15 Magnesium Hydroxide (Milk Of Magnesia Liq) 30 ml DAILY PRN PO CONSTIPATION Last administered on 08/24/17 18:15; Start 08/19/17 at 00:15 Al Hydrox/Mg Hydrox/Simethicone (Mag-Al Plus Susp Liq) 30 ml Q6H PRN PO DYSPEPSIA; Start 08/19/17 at 00:15 Nicotine (Habitrol 21 Mg Patch.24 Hr) 1 patch DAILY T-DERMAL Last administered on 08/28/17 09:17; Start 08/19/17 at 09:00 Miscellaneous Information 1 HS T-DERMAL Last administered on 08/27/17 21:00; Start 08/19/17 at 21:00 Calcium Carbonate (Oscal) 1,500 mg DAILY PO Last administered on 08/28/17 09:14 ; Start 08/19/17 at 10:30 Ferrous Sulfate (Ferrous Sulfate) 325 mg BIDPC PO Last administered on 09:14; Start 08/19/17 at 18:00 Folic Acid (Folate) 1 mg DAILY PO Last administered on 08/28/17 09:14; Start 08/19/17 at 10:30 Polyethylene Glycol (Miralax) 17 gm DAILY PO Last administered on 08/27/17 08: 14; Start 08/20/17 at 09:00 Multivitamins (Theragran) 1 tab DAILY PO Last administered on 08/28/17 09:14; Start 08/19/17 at 11:00 Risperidone (risperDAL) 2 mg Q12HR PO ; Start 08/19/17 at 11:00; Stop at 16:02; Status DC Risperidone (risperDAL) 1 mg Q12HR PO Last administered on 08/28/17 09:14; Start 08/19/17 at 21:00; Status Future hold Bacitracin (Baciguent Oint) 1 applic Q12HR PRN TOPICAL dry skin and sores, right martinez; Start 08/19/17 at 20:30 Lorazepam (Ativan Inj) 2 mg STK-MED ONCE .ROUTE ; Start 08/24/17 at 12:17; Stop 08/24/17 at 12:18; Status DC Haloperidol Lactate (Haldol Inj) 5 mg STK-MED ONCE .ROUTE ; Start 08/24/17 at 12: 17; Stop 08/24/17 at 12:18; Status DC Haloperidol Lactate (Haldol Inj) 5 mg STAT ONCE IM Last administered on at 12:45; Start 08/24/17 at 12:45; Stop 08/24/17 at 12:46; Status DC Lorazepam (Ativan Inj) 2 mg STAT ONCE IM Last administered on 08/24/17at 12:44; Start 08/24/17 at 12:45; Stop 08/24/17 at 12:46; Status DC Haloperidol Lactate (Haldol Inj) 5 mg BID IM Last administered on 08/26/17at 09: 42; Start 08/25/17 at 21:00 Haloperidol Lactate (Haldol Inj) 5 mg STK-MED ONCE .ROUTE Last administered on 08/25/17at 18:44; Start 08/25/17 at 18:44; Stop 08/25/17 at 18:45; Status DC A/P Problem List: (1) Schizophrenia ICD Code: F20.9 - Schizophrenia, unspecified Assessment and Plan Patient is a 52-year-old male who came in under [employer] act for refusing indications, food and drink. He is now admitted to medical psychiatry for further evaluation. Consulted for medical management. Schizophrenia - Managed by psychiatry team - Patient continues to refuse medications - Patient does not have any family, lives in [facility]. - Mental health court with assigned health rn transitional care. - Patient will receive medications with involuntary hospitalization. Nurse will receive medications with consent of R[facility]RI. REMAINED NONVERBAL DURING MY EXAM Refusal of medications, food, drinks - Patient has been eating and drinking, but continues to refuse medications. - Labs were obtained 08/24 CBC reviewed RBC 4.25, monocytes 9.4 and Eosinophils 4.5 otherwise unremarkable. BMP reviewed total protein 9.4, albumin 2.8, otherwise unremarkable. Lipid panel with cholesterol 116, B12 1063, and vitamin D 27.3, mildly low. Urine tox negative. - Most likely patient refusal is secondary to his schizophrenia, psychiatry team continues to encourage patient to comply with medication treatment, now with health rn transitional care. - VSS ?axilla scaring - Once patient starts medications I imagine will be a lot more cooperative, will assess skin in the future. - afebrile DVT prop encourage ambulation Jerry Ford DO Aug 28, 2017 09:54
[2017-08-28 19:03] VITALS: BP 141/81; PULSE 75; RESP 18; TEMP 97.5; O2SAT 96
[2017-08-28] MEDS: REMOVE OLD NICOTINE PATCH T-DERMAL SCH (20:50)
[2017-08-29 06:28] VITALS: BP 119/77; PULSE 54; RESP 18; TEMP 97.7; O2SAT 95
[2017-08-29] MEDS: MULTIVITAMIN TAB PO SCH (08:28)
[2017-08-29] MEDS: POLYETHYLENE GLYCOL 17 GM PKG PO SCH (08:28)
[2017-08-29] MEDS: FOLIC ACID 1 MG TAB PO SCH (08:28)
[2017-08-29] MEDS: risperiDONE 1 MG TAB PO SCH (08:28)
[2017-08-29] MEDS: CALCIUM CARBONATE 1.25 GM (CA 500 MG) TAB PO SCH (08:28)
[2017-08-29] MEDS: FERROUS SULFATE 325 MG (65 MG ELEMENTAL IRON) TAB PO SCH ×2 (08:28→17:10)
[2017-08-29] MEDS: NICOTINE 21 MG/24 HR PATCH T-DERMAL SCH (08:33)
[2017-08-29] MEDS: HALOPERIDOL LACTATE 5 MG/ML AMP IM SCH ×2 (08:33→20:25)
--- NOTE | 2017-08-29 11:11 | HHI.PYPN ---
Subjective Remarks Psychiatric progress note for August 28, 2017. Patient seen at bedside. Electronic medical record reviewed. Case discussed with nurse. Patient remained seclusive. Poverty of speech. Continued anxiety. Continued psychotic features. Laboratory results were reviewed and medication dosing review. Review of Systems ROS Limitations: Clinical Condition Psychiatric: COMPLAINS OF: Anxiety, Delusions Except as stated in HPI: all other systems reviewed are Neg Mental Status Examination Appearance: Disheveled (unshaven) Consciousness: Alert Orientation: Person (stated that his name was not Fausto Narvaez) Motor Activity: Normal gait Speech: Hesitant Language: Other (limited) Fund of Knowledge: Inadequate Attention and Concentration: Inadequate Memory: Unremarkable Mood: Irritable (less so today) Affect: Flat, Other (noted to have darting eye contact) Thought Process & Associations: Linear, Other (concrete) Thought Content: Other (paranoid) Hallucination Type: Other (appears internally stimulated) Delusion Type: Paranoid, Other (unknown as patient refuses to participate in interview) Suicidal Ideation: No (unknown as patient refuses to continue interview) Suicidal Plan: No Suicidal Intention: No Homicidal Ideation: No Homicidal Plan: No Homicidal Intention: No Insight: Poor Judgment: Poor Results Vitals/IOs Vital Signs Date Time Temp Pulse Resp B/P (MAP) Pulse Ox O2 Delivery O2 Flow Rate FiO2 08/29/17 06:28 97.7 54 18 119/77 (91) 95 Intake and Output 08/29/17 08/29/17 08/30/17 08:00 16:00 00:00 Intake Total 480 ml 480 ml Balance 480 ml 480 ml Assessment & Plan Problem List: (1) Schizophrenia ICD Codes: F20.9 - Schizophrenia, unspecified Assessment & Plan . Estimated LOS: days continues to require more time to respond to antipsychotic therapies. Tolerating medications without significant adverse events. Will consider increasing doses of antipsychotic medicine. Justification for Cont. Inpt. Likely to decompensate at lower level of care. Request HC Surrog/Guard Advoc?: Yes Ishaan Simons MD Aug 29, 2017 11:11
--- NOTE | 2017-08-29 11:55 | HHI.PYPN ---
Subjective Remarks Patient seen for follow-up, chart reviewed. Discussion she staff reported the patient initially was refusing medication without take by mouth meds. Patient was found lying in hospital bed continued noted to be selectively mute but was able to express wanting to be discharged back to his assisted living facility. Patient was able to recall the [facility] which he came from. He agreed to participate in groups and activities but was not able to answer whether he was having perceptual disturbances, had showered or what his mood has been. Patient appeared to be internally preoccupied during interview. Review of Systems Except as stated in HPI: all other systems reviewed are Neg Mental Status Examination Appearance: Disheveled (unshaven) Consciousness: Alert Orientation: Person (stated that his name was not Fausto Narvaez) Motor Activity: Normal gait Speech: Other (selectively mute) Language: Other (limited) Fund of Knowledge: Inadequate Attention and Concentration: Inadequate Memory: Unremarkable Mood: Other (did not express his mood today) Affect: Flat, Other (noted to have darting eye contact) Thought Process & Associations: Linear, Other (concrete) Thought Content: Other (paranoid but less so today) Hallucination Type: Other (appears internally stimulated) Delusion Type: Paranoid, Other (unknown as patient refuses to participate in interview) Suicidal Ideation: No (unknown as patient refuses to continue interview) Suicidal Plan: No Suicidal Intention: No Homicidal Ideation: No Homicidal Plan: No Homicidal Intention: No Insight: Poor Judgment: Poor Results Vitals/IOs Vital Signs Date Time Temp Pulse Resp B/P (MAP) Pulse Ox O2 Delivery O2 Flow Rate FiO2 08/29/17 06:28 97.7 54 18 119/77 (91) 95 Intake and Output 08/29/17 08/29/17 08/30/17 08:00 16:00 00:00 Intake Total 480 ml 480 ml Balance 480 ml 480 ml Assessment & Plan Problem List: (1) Schizophrenia ICD Codes: F20.9 - Schizophrenia, unspecified Assessment & Plan Patient at this time continues to be noted to have limited interaction verbally with interview but was able to express wanting to be discharged home, agreed to attend groups activities. Patient noted to be somewhat malodorous and showers upon encouragement. Patient has refused at times but accepting by mouth medications as far. Patient noted to be somewhat internally preoccupied during interview. We'll increase risperidone to 1 mg a.m./2 mg at bedtime. Continue to encourage patient to maintain hygiene and to participate in groups and activities. Discharge planning in progress Justification for Cont. Inpt. At risk for further decompensation if at lower level of care Discharge Planning Patient to return back to his assisted living facility once psychiatrically stable Request HC Surrog/Guard Advoc?: Yes Trenton Callaway MD Aug 29, 2017 11:55
--- NOTE | 2017-08-29 12:42 | HHI.PR ---
Subjective Remarks Follow-up for schizophrenia. Patient is nonverbal but awake. Does not respond to any verbal commands. Did not resist a physical examination. Objective Vitals Vital Signs Date Time Temp Pulse Resp B/P (MAP) Pulse Ox O2 Delivery O2 Flow Rate FiO2 08/29/17 06:28 97.7 54 18 119/77 (91) 95 08/28/17 19:03 97.5 75 18 141/81 (101) 96 I/O 08/28/17 08/28/17 08/28/17 08/29/17 08/29/17 08/29/17 07:00 15:00 23:00 07:00 15:00 23:00 Intake Total 360 ml 1080 ml 1200 ml 480 ml Balance 360 ml 1080 ml 1200 ml 480 ml Intake Oral 360 ml 1080 ml 1200 ml 480 ml # Voids 1 3 Imaging Last Impressions Head CT 08/18/17 0000 Signed Impressions: Service Date/Time: July 17:17 - CONCLUSION: 1. Limited examination due to patient positioning and motion. 2. No gross acute intracranial abnormality. 3. Right maxillary sinus mucosal disease. Harlan Riley MD Objective Remarks GENERAL: Nonverbal, NAD SKIN: Warm and dry. HEAD: Normocephalic. EYES: No scleral icterus. No injection or drainage. NECK: Supple, trachea midline. No JVD or lymphadenopathy. CARDIOVASCULAR: Regular rate and rhythm without murmurs, gallops, or rubs. RESPIRATORY: Breath sounds equal bilaterally. No accessory muscle use. GASTROINTESTINAL: Abdomen soft, non-tender, nondistended. MUSCULOSKELETAL: No cyanosis, or edema. BACK: Nontender without obvious deformity. No CVA tenderness. A/P Problem List: (1) Schizophrenia ICD Code: F20.9 - Schizophrenia, unspecified Assessment and Plan Patient is a 52-year-old male who came in under Personal act for refusing indications, food and drink. He is now admitted to medical psychiatry for further evaluation. Consulted for medical management. Schizophrenia - Managed by psychiatry team - Patient continues to refuse medications - Patient does not have any family, lives at an [facility]. - Mental health court with assigned health managed care analyst. - Patient will receive medications with involuntary hospitalization. Refusal of medications, food, drinks - Patient has been eating and drinking, but continues to refuse medications. - Labs were obtained 08/24 CBC reviewed RBC 4.25, monocytes 9.4 and Eosinophils 4.5 otherwise unremarkable. BMP reviewed total protein 9.4, albumin 2.8, otherwise unremarkable. Lipid panel with cholesterol 116, B12 1063, and vitamin D 27.3, mildly low. Urine tox negative. - Most likely patient refusal is secondary to his schizophrenia, psychiatry team continues to encourage patient to comply with medication treatment, now with health managed care analyst. DVT prop encourage ambulation Loc Pierce DO Aug 29, 2017 12:42 pm
--- NOTE | 2017-08-29 16:52 | PD.TTN ---
Patient Problems 1. Discharge planning 2. Medication compliance 3. Knowledge deficit 4. Lack of coping skills Progress Toward Goals Provider Present: Dr. Can Callaway Provider Input: 08/29/2017 patient's medication requires adjustment Nurse(s) Present: RN Nurse(s) Input: 08/29/2017 Patient is withdrawn, refuses to participate with treatment without coaching and prompting Psychiatric Counselors Present: CHRISSY Jain Psych Therapist Input: 08/29/2017; counselor will contact facility when ready to assess patient for dc back Group Spec/RT/OT/PARISH Present: Lamine Mondragon OT Group Spec/RT/OT/PARISH Input: 08/29/2017; per OT patient has refused to participate with groups/activities Documentation Scribe: CHRISSY Jain Sandra LMHC Aug 29, 2017 16:52
[2017-08-29 18:00] VITALS: BP 134/76; PULSE 83; RESP 18; TEMP 98.5; O2SAT 94
[2017-08-29] MEDS: REMOVE OLD NICOTINE PATCH T-DERMAL SCH (20:26)
[2017-08-29] MEDS: LORazepam 1 MG TAB PO PRN (20:35)
[2017-08-29] MEDS ORDERED: risperiDONE 1 MG TAB PO SCH (21:00)
[2017-08-30] MEDS: LORazepam 1 MG TAB PO PRN (03:17)
[2017-08-30 06:23] VITALS: BP 117/75; PULSE 82; RESP 16; TEMP 97.9; O2SAT 95
[2017-08-30] MEDS ORDERED: risperiDONE 1 MG TAB PO SCH (09:00)
[2017-08-30] MEDS: HALOPERIDOL LACTATE 5 MG/ML AMP IM SCH ×2 (09:00→20:29)
--- NOTE | 2017-08-30 10:40 | HHI.PYPN ---
Subjective Remarks Patient seen for follow, chart reviewed. Discussion she staff reported the patient to comply more with medications recently noted to be pacing at night did not sleep well. Patient was found lying in hospital bed with limited cooperation interview today. When mentioning the patient may be moved from to a different unit he suddenly becomes more interactive stating that he did not want to change rooms. He states that he agrees to take a shower today and continue medications by mouth as well as to participate in some groups and activities. When asked about auditory hallucinations or suicidality or homicidality patient did not answer. Patient continues to be noted to be internally preoccupied during interview. Review of Systems Except as stated in HPI: all other systems reviewed are Neg Mental Status Examination Appearance: Disheveled (unshaven), Malodorous Consciousness: Alert Orientation: Person (stated that his name was not Fausto Narvaez) Motor Activity: Normal gait Speech: Other (selectively mute) Language: Other (limited) Fund of Knowledge: Inadequate Attention and Concentration: Inadequate Memory: Unremarkable Mood: Other (did not express his mood today) Affect: Flat, Other (noted to have darting eye contact) Thought Process & Associations: Linear, Other (concrete) Thought Content: Other (paranoid but less so today) Hallucination Type: Other (appears internally stimulated) Delusion Type: Paranoid, Other (unknown as patient refuses to participate in interview) Suicidal Ideation: No (unknown as patient refuses to continue interview) Suicidal Plan: No Suicidal Intention: No Homicidal Ideation: No Homicidal Plan: No Homicidal Intention: No Insight: Poor Judgment: Poor Results Vitals/IOs Vital Signs Date Time Temp Pulse Resp B/P (MAP) Pulse Ox O2 Delivery O2 Flow Rate FiO2 08/30/17 06:23 97.9 82 16 117/75 (89) 95 Intake and Output 08/30/17 08/30/17 08/30/17 07:59 15:59 23:59 Intake Total 240 ml 240 ml Balance 240 ml 240 ml Assessment & Plan Problem List: (1) Schizophrenia ICD Codes: F20.9 - Schizophrenia, unspecified Assessment & Plan Patient at this time continues to have sporadic participation in conversation interview but is agreeable to continue to maintain personal hygiene adhere to treatment and participating in groups activities but has yet to show him doing involuntarily without prompting or encouragement. We'll increase risperidone to 2 mg by mouth twice a day for psychosis. Continue to encourage patient to maintain personal hygiene and participate in groups and activities while on the unit. Discharge planning in progress Justification for Cont. Inpt. At risk for further decompensation if at lower level of care Discharge Planning Patient to return back to his [facility] when psychiatrically stable Request HC Surrog/Guard Advoc?: Yes Trenton Callaway MD Aug 30, 2017 10:40
--- NOTE | 2017-08-30 11:51 | HHI.PR ---
Subjective Remarks Follow-up for schizophrenia. Patient remains non-verbal. He was standing in the bathroom but did not say anything. Objective Vitals Vital Signs Date Time Temp Pulse Resp B/P (MAP) Pulse Ox O2 Delivery O2 Flow Rate FiO2 08/30/17 06:23 97.9 82 16 117/75 (89) 95 08/29/17 18:00 98.5 83 18 134/76 (95) 94 I/O 08/29/17 08/29/17 08/29/17 08/30/17 08/30/17 08/30/17 07:00 15:00 23:00 07:00 15:00 23:00 Intake Total 1200 ml 720 ml 720 ml 960 ml 240 ml Balance 1200 ml 720 ml 720 ml 960 ml 240 ml Intake Oral 1200 ml 720 ml 720 ml 960 ml 240 ml # Voids 3 2 4 Objective Remarks GENERAL: Nonverbal, NAD SKIN: Warm and dry. HEAD: Normocephalic. EYES: No scleral icterus. No injection or drainage. NECK: Supple, trachea midline. No JVD or lymphadenopathy. CARDIOVASCULAR: Regular rate and rhythm without murmurs, gallops, or rubs. RESPIRATORY: Breath sounds equal bilaterally. No accessory muscle use. GASTROINTESTINAL: Abdomen soft, non-tender, nondistended. MUSCULOSKELETAL: No cyanosis, or edema. BACK: Nontender without obvious deformity. No CVA tenderness. A/P Problem List: (1) Schizophrenia ICD Code: F20.9 - Schizophrenia, unspecified Status: Chronic Assessment and Plan Patient is a 52-year-old male who came in under [employer] act for refusing indications, food and drink. He is now admitted to medical psychiatry for further evaluation. Consulted for medical management. Schizophrenia - Managed by psychiatry team - Patient continues to refuse medications - Patient does not have any family, lives at an [facility]. - Mental health court with assigned health healthcare representative. - Patient will receive medications with involuntary hospitalization. Refusal of medications, food, drinks - Patient has been eating and drinking, but continues to refuse medications. - Labs were obtained 08/24 CBC reviewed RBC 4.25, monocytes 9.4 and Eosinophils 4.5 otherwise unremarkable. BMP reviewed total protein 9.4, albumin 2.8, otherwise unremarkable. Lipid panel with cholesterol 116, B12 1063, and vitamin D 27.3, mildly low. Urine tox negative. - Most likely patient refusal is secondary to his schizophrenia, psychiatry team continues to encourage patient to comply with medication treatment, now with health healthcare representative. DVT prop encourage ambulation Can be transferred out of the med-psych to psychiatry floor. Loc Pierce DO Aug 30, 2017 11:50
[2017-08-30] MEDS: POLYETHYLENE GLYCOL 17 GM PKG PO SCH (13:06)
[2017-08-30] MEDS: CALCIUM CARBONATE 1.25 GM (CA 500 MG) TAB PO SCH (13:06)
[2017-08-30] MEDS: NICOTINE 21 MG/24 HR PATCH T-DERMAL SCH (13:07)
[2017-08-30] MEDS: MULTIVITAMIN TAB PO SCH (13:08)
[2017-08-30] MEDS: FOLIC ACID 1 MG TAB PO SCH (13:08)
[2017-08-30] MEDS: FERROUS SULFATE 325 MG (65 MG ELEMENTAL IRON) TAB PO SCH ×2 (13:22→18:51)
[2017-08-30 18:36] VITALS: BP 124/63; PULSE 88; RESP 18; TEMP 98.1; O2SAT 95
[2017-08-30] MEDS: traZODone HCL 50 MG TAB PO SCH (20:26)
[2017-08-30] MEDS: risperiDONE 1 MG TAB PO SCH (20:26)
[2017-08-30] MEDS: REMOVE OLD NICOTINE PATCH T-DERMAL SCH (20:29)
[2017-08-31 07:11] VITALS: BP 115/62; PULSE 79; RESP 16; TEMP 97.7; O2SAT 95
[2017-08-31] MEDS: HALOPERIDOL LACTATE 5 MG/ML AMP IM SCH ×2 (09:00→20:19)
[2017-08-31] MEDS: POLYETHYLENE GLYCOL 17 GM PKG PO SCH (09:00)
[2017-08-31] MEDS: CALCIUM CARBONATE 1.25 GM (CA 500 MG) TAB PO SCH (09:00)
[2017-08-31] MEDS: NICOTINE 21 MG/24 HR PATCH T-DERMAL SCH (09:00)
--- NOTE | 2017-08-31 09:10 | HHI.PR ---
Subjective Remarks Patient refused to answer my questions. Look towards his right. His tray was empty and he did eat his breakfast this morning Objective Vitals Vital Signs Date Time Temp Pulse Resp B/P (MAP) Pulse Ox O2 Delivery O2 Flow Rate FiO2 08/31/17 07:11 97.7 79 16 115/62 (79) 95 08/30/17 18:36 98.1 88 18 124/63 (83) 95 I/O 08/30/17 08/30/17 08/30/17 08/31/17 08/31/17 08/31/17 07:00 15:00 23:00 07:00 15:00 23:00 Intake Total 960 ml 720 ml 480 ml 0 ml Balance 960 ml 720 ml 480 ml 0 ml Intake Oral 960 ml 720 ml 480 ml 0 ml Packed Cells 0 ml # Voids 4 1 Objective Remarks GENERAL: This is a well-nourished, well-developed patient, in no apparent distress. CARDIOVASCULAR: Regular rate and rhythm without murmurs, gallops, or rubs. RESPIRATORY: Few left-sided rhonchi with coarse breath sounds GASTROINTESTINAL: Abdomen soft, non-tender, nondistended. Normal active bowel sounds MUSCULOSKELETAL: Extremities without clubbing, cyanosis, or edema. NEURO: did not answer my questions.. Catatonic when came to his room. A/P Problem List: (1) Schizophrenia ICD Code: F20.9 - Schizophrenia, unspecified Status: Chronic Assessment and Plan Patient is a 52-year-old male who came in under [employer] act for refusing indications, food and drink. He is now admitted to medical psychiatry for further evaluation. Consulted for medical management. Schizophrenia with acute psychosis and at times, tone - Managed by psychiatry team - Patient now is selectively taking his medications. - Patient does not have any family, lives at an [facility]. - Mental health court with assigned health adult daycare coordinator. - Patient will receive medications with involuntary hospitalization. Continue with Risperdal Refusal of medications, food, drinks - Patient has been eating and drinking- and improved. - Most likely patient refusal intermittently [place] medications and oral intake is secondary to his schizophrenia, psychiatry team continues to encourage patient to comply with medication treatment, now with health adult daycare coordinator. Coarse breath sounds and unknown if patient has a history of tobacco use.-Poor historian and patient refuses to answer questions if he is short of breath or is having any coughing. His sats ranged from 94 to 96%; Will obtain a portal chest x-ray to rule out any abnormality at this time. DVT prophylaxis- encourage ambulation; Lovenox if patient able to accept medication Justine Maurer MD Aug 31, 2017 09:10
[2017-08-31] MEDS: MULTIVITAMIN TAB PO SCH (09:23)
[2017-08-31] MEDS: risperiDONE 1 MG TAB PO SCH (09:23)
[2017-08-31] MEDS: FOLIC ACID 1 MG TAB PO SCH (09:23)
[2017-08-31] MEDS: FERROUS SULFATE 325 MG (65 MG ELEMENTAL IRON) TAB PO SCH ×2 (09:23→18:00)
[2017-08-31] MEDS: ENOXAPARIN SODIUM 40 MG/0.4 ML SYRINGE SQ SCH (10:00)
--- NOTE | 2017-08-31 11:02 | HHI.PYPN ---
Subjective Remarks Patient seen for follow-up, chart reviewed. Discussion she staff reported patient continues to be slightly mute. Patient was seen today along with nurse and counselor. Patient noted to be guarded, slightly hypervigilant appearing paranoid and selectively mute. Once medical technical writer was a alone in the room with patient patient was able to express that he wanted to go home, stated he was willing to take a shower today. Patient agreed to continue treatment and was encouraged for him to continue doing so. The option of having patient on a long -acting injectable every 2 weeks, Risperdal Consta, was discussed with patient which she appeared to be ambivalent about. Review of Systems Except as stated in HPI: all other systems reviewed are Neg Mental Status Examination Appearance: Disheveled (unshaven) Consciousness: Alert Orientation: Person (stated that his name was not Fausto Narvaez) Motor Activity: Normal gait Speech: Other (selectively mute) Language: Other (limited) Fund of Knowledge: Inadequate Attention and Concentration: Inadequate Memory: Unremarkable Mood: Other (did not express his mood today) Affect: Flat, Other (noted to have darting eye contact) Thought Process & Associations: Linear, Other (concrete) Thought Content: Other (paranoid but less so today) Hallucination Type: Other (appears internally stimulated) Delusion Type: Paranoid, Other (unknown as patient refuses to participate in interview) Suicidal Ideation: No Suicidal Plan: No Suicidal Intention: No Homicidal Ideation: No Homicidal Plan: No Homicidal Intention: No Insight: Poor Judgment: Poor Results Vitals/IOs Vital Signs Date Time Temp Pulse Resp B/P (MAP) Pulse Ox O2 Delivery O2 Flow Rate FiO2 08/31/17 07:11 97.7 79 16 115/62 (79) 95 Intake and Output 08/31/17 08/31/17 09/01/17 08:00 16:00 00:00 Intake Total 480 ml Balance 480 ml Assessment & Plan Problem List: (1) Schizophrenia ICD Codes: F20.9 - Schizophrenia, unspecified Status: Chronic Assessment & Plan Patient continues in noted to be somewhat internally preoccupied at times, some disorganized behavior and he was noted to be smelling the nicotine patch. Patient was noted to interact somewhat today stating that he wants to be old discharged back to his [facility]. We'll continue to increase risperidone and consider long-acting injectable of Risperdal Consta once oral doses established. Continue to encourage patient to maintain personal hygiene and participate in groups and activities. Discharge planning in progress Justification for Cont. Inpt. At risk for further decompensation if at lower level of care Discharge Planning Patient to return back to his [facility] psychiatrically stable Request HC Surrog/Guard Advoc?: Yes Trenton Callaway MD Aug 31, 2017 11:02
[2017-08-31 18:00] VITALS: BP 114/64; PULSE 92; RESP 18; TEMP 98.5; O2SAT 94
[2017-08-31] MEDS: traZODone HCL 50 MG TAB PO SCH (20:17)
[2017-08-31] MEDS: risperiDONE 3 MG TAB PO SCH (20:17)
[2017-08-31] MEDS: REMOVE OLD NICOTINE PATCH T-DERMAL SCH (20:19)
[2017-09-01 06:16] VITALS: BP 119/70; PULSE 73; RESP 21; TEMP 97.8; O2SAT 96
[2017-09-01] MEDS ORDERED: risperiDONE 1 MG TAB PO SCH (09:00)
--- NOTE | 2017-09-01 09:05 | HHI.PYPN ---
Subjective Remarks Patient seen for follow, chart reviewed. Discussion she staff reported the patient continues to be selectively mute, continues to attempt to refuse medicines bonanza taking them with encouragement, continues to shower with encouragement. Patient found sitting in hospital bed noted to be somewhat paranoid and hypervigilant with nurse standing bedside as well and continued to be selectively mute initially but eventually started to interact. She states that he would like to be adequate. Discharge soon stating that he would like to be back in his residence. When mentioned that patient may be moved to a more populated unit he initially began to expresses discontent stating that he does not want to be around other people. Patient states "if you want to blame this place on me or whatever" and noted to be somewhat disorganized but was able to mentioned wanting to continue his medications and that he has been doing this for quite some time. The option of having patient on a long-acting injectable antipsychotic was discussed but patient refused at this time stating that he would much rather prefer to continue to take medications by mouth. Review of Systems Except as stated in HPI: all other systems reviewed are Neg Mental Status Examination Appearance: Disheveled (unshaven) Consciousness: Alert Orientation: Person (stated that his name was not Fausto Narvaez) Motor Activity: Normal gait Speech: Other (selectively mute) Language: Other (limited) Fund of Knowledge: Inadequate Attention and Concentration: Inadequate Memory: Unremarkable Mood: Other (did not express his mood today) Affect: Flat, Other (noted to have darting eye contact) Thought Process & Associations: Linear, Other (concrete) Thought Content: Other (paranoid but less so today) Hallucination Type: Other (appears internally stimulated) Delusion Type: Paranoid, Other (unknown as patient refuses to participate in interview) Suicidal Ideation: No Suicidal Plan: No Suicidal Intention: No Homicidal Ideation: No Homicidal Plan: No Homicidal Intention: No Insight: Poor Judgment: Poor Results Vitals/IOs Vital Signs Date Time Temp Pulse Resp B/P (MAP) Pulse Ox O2 Delivery O2 Flow Rate FiO2 09/01/17 06:16 97.8 73 21 119/70 (86) 96 Intake and Output 09/01/17 09/01/17 09/02/17 08:00 16:00 00:00 Intake Total 0 ml Balance 0 ml Assessment & Plan Problem List: (1) Schizophrenia ICD Codes: F20.9 - Schizophrenia, unspecified Status: Chronic Assessment & Plan Age at this time continues to be noted to be disorganized at times but linear mostly in concrete. Limited interaction with patient as he has been selectively mute at times. Patient noted to be somewhat paranoid and hypervigilant around staff and during interview. We'll continue to titrate risperidone to 3 mg by mouth twice a day for psychosis. Continue admission as per primary medical team. Discharge planning in progress Justification for Cont. Inpt. At risk for further decompensation if at lower level of care Discharge Planning Patient in her back to his [facility] when psychiatrically stable Request HC Surrog/Guard Advoc?: Yes Trenton Callaway MD Sep 01, 2017 09:05
[2017-09-01] MEDS ORDERED: risperiDONE 3 MG TAB PO ONE (09:30)
[2017-09-01] MEDS: CALCIUM CARBONATE 1.25 GM (CA 500 MG) TAB PO SCH (09:38)
[2017-09-01] MEDS: FERROUS SULFATE 325 MG (65 MG ELEMENTAL IRON) TAB PO SCH ×2 (09:38→18:49)
[2017-09-01] MEDS: MULTIVITAMIN TAB PO SCH (09:38)
[2017-09-01] MEDS: ENOXAPARIN SODIUM 40 MG/0.4 ML SYRINGE SQ SCH (09:39)
[2017-09-01] MEDS: NICOTINE 21 MG/24 HR PATCH T-DERMAL SCH (09:39)
[2017-09-01] MEDS: FOLIC ACID 1 MG TAB PO SCH (09:39)
[2017-09-01] MEDS: POLYETHYLENE GLYCOL 17 GM PKG PO SCH (09:40)
[2017-09-01] MEDS: HALOPERIDOL LACTATE 5 MG/ML AMP IM SCH ×2 (09:44→21:00)
--- NOTE | 2017-09-01 09:46 | HHI.PR ---
Subjective Remarks Patient does not answer my questions. However he did agree for me to examine him. Objective Vitals Vital Signs Date Time Temp Pulse Resp B/P (MAP) Pulse Ox O2 Delivery O2 Flow Rate FiO2 09/01/17 06:16 97.8 73 21 119/70 (86) 96 08/31/17 18:00 98.5 92 18 114/64 (81) 94 I/O 08/31/17 08/31/17 08/31/17 09/01/17 09/01/17 09/01/17 07:00 15:00 23:00 07:00 15:00 23:00 Intake Total 0 ml 960 ml 1340 ml 240 ml Output Total 3 ml Balance 0 ml 960 ml 1337 ml 240 ml Intake Oral 0 ml 960 ml 1340 ml 240 ml Packed Cells 0 ml Output Urine Total 3 ml # Voids 1 3 2 Objective Remarks GENERAL: This is a well-nourished, well-developed patient, in no apparent distress. CARDIOVASCULAR: Regular rate and rhythm RESPIRATORY: Relatively clear to auscultation bilaterally GASTROINTESTINAL: Abdomen soft, non-tender, nondistended. Normal active bowel sounds MUSCULOSKELETAL: Extremities without clubbing, cyanosis, or edema. NEURO: did not answer my questions.. Catatonic when came to his room. A/P Problem List: (1) Schizophrenia ICD Code: F20.9 - Schizophrenia, unspecified Status: Chronic Assessment and Plan Patient is a 52-year-old male who came in under [employer] act for refusing indications, food and drink. He is now admitted to medical psychiatry for further evaluation. Consulted for medical management. Schizophrenia with acute psychosis and at times, tone - Managed by psychiatry team - Patient now is selectively taking his medications. - Patient does not have any family, lives at an [facility]. - Mental health court with assigned health child care sitter. - Patient will receive medications with involuntary hospitalization. Continue with Risperdal Refusal of medications, food, drinks - Patient has been eating and drinking yesterday -Nursing staff to document percentage of meals intake - Most likely patient refusal intermittently on his medications and oral intake is secondary to his schizophrenia, psychiatry team continues to encourage patient to comply with medication treatment, now with health child care sitter. Coarse breath sounds yesterday and unknown if patient has a history of tobacco use, today his lung exam is clear and he remains to have unstable sats. Portal chest x-ray order yesterday was canceled due to patient's refusal. Continue to monitor patient clinically. No fevers and no signs and symptoms upper respiratory infection. DVT prophylaxis- encourage ambulation; Lovenox if patient able to accept medication Justine Maurer MD Sep 01, 2017 09:46
[2017-09-01 18:00] VITALS: BP 128/78; PULSE 76; RESP 18; TEMP 97.8; O2SAT 96
[2017-09-01] MEDS: REMOVE OLD NICOTINE PATCH T-DERMAL SCH (21:00)
[2017-09-01] MEDS: traZODone HCL 50 MG TAB PO SCH (22:12)
[2017-09-01] MEDS: risperiDONE 3 MG TAB PO SCH (22:12)
[2017-09-02 06:00] VITALS: BP 129/76; PULSE 83; RESP 18; TEMP 98.2; O2SAT 98
[2017-09-02] MEDS ORDERED: risperiDONE 3 MG TAB PO SCH (09:00)
[2017-09-02] MEDS ORDERED: RISP3TAB2 PO (09:19)
[2017-09-02] MEDS ORDERED: TRAZ50TA12 PO (09:19)
[2017-09-02] MEDS ORDERED: FERR325T18 PO (09:19)
[2017-09-02] MEDS ORDERED: MULTTAB67 PO (09:19)
[2017-09-02] MEDS ORDERED: FOLI1TAB6 PO (09:19)
[2017-09-02] MEDS ORDERED: CALC600T4 PO (09:19)
--- NOTE | 2017-09-02 09:27 | HHI.DS ---
Psychiatry Discharge Summary Inpatient Psychiatric care?: Yes Advance Directive: No Reason Not Provided: does not have one Mental Health AdvanceDirective: No Health Care Proxy: No Admission Admission Date Aug 19, 2017 at 00:05 Admission Diagnosis: (1) Schizophrenia ICD Code: F20.9 - Schizophrenia, unspecified Brief History Patient is a 52-year-old Afro-[place] man, unknown marital status, domiciled an assisted living facility, with a past psychiatric history of schizophrenia, unknown previous psychiatric hospitalizations, suicide attempts or self- injurious behavior who was brought in under [employer] act from his residential facility due to refusing medications for the past week refusing to eat and drink along with pain noted to be bizarre, staring and nonresponsive. She was found lying in hospital bed awake alert, poor eye contact but refusing to speak with credit underwriter despite encouragement. Discussion she staff reported the patient had been noted to be eating 100% of his meals since arrival and drinking well but refusing medications. Patient noted to be having minimal verbal interactions with staff and have is mostly noted to be in bed. Patient at this time likely to have decompensation due to her behaviors to medications several require continued inpatient psychiatric admission for evaluation and management. Patient at this time is deemed at that have any capacity to sign voluntary dose to participate in medical decision making at this time. Psychiatric history: Previous psychiatric diagnoses of schizophrenia as per chart, unknown of previous psychiatric hospitalizations, suicide attempt or self -injurious behavior. Patient recent medication regimen as noted in facilities documentation include risperidone 2 mg once daily, ferrous sulfate 325 mg once daily, quetiapine 400 mg twice daily. Past medical history: Unknown patient not participating in interview Allergies: NKDA as per chart Substance use history: Unknown history patient not participating in interview Social history: Domiciled at [facility] ([facility]) Second opinion: The patient is a 52-year-old man with secondary history of schizophrenia, domiciled in an [facility], brought to the hospital due to bizarre behavior and mutism. Consulted to be for second opinion. My assessment is limited because patient will not speak at all. He was found in his room with a blanket in his head, refusing to cooperate and provide information for the psychiatric assessment. According to the [employer] act report he has history of schizophrenia and the patient is refusing meds. He is refusing food or drinks including water. He has been off his medications for over a week. CUSTODIAL described bizarre behavior including staring, nonresponsive. Tobacco Use In Past 30 Days: No Tobacco Past 30 Days Alcohol Use: Never Hospital Course Patient is a 52-year-old Afro-[place] man, unknown marital status, domiciled an assisted living facility, with a past psychiatric history of schizophrenia, unknown previous psychiatric hospitalizations, suicide attempts or self- injurious behavior who was brought in under [employer] act from his residential facility due to refusing medications for the past week refusing to eat and drink along with pain noted to be bizarre, staring and nonresponsive and was subsequently transferred to the inpatient psychiatry for further evaluation and management. Patient was started on risperidone and titrated up to 3mg PO BID, trazodone 50mg PO HS, which initially had refused medications. Patient went to mental health court for retention and treatment over objection which was granted and had Haldol 5mg IM administered when refusing PO meds. Patient later began to comply with PO medications and was noted to become more alert, engaging with staff and noted to be more cooperative with hygiene, eating and drinking well, and with treatment. He tolerated well and responded well to treatment, was noted to be cooperative with staff, no behavioral dyscontrol during admission and was noted to have stable mood. Upon discharge patient reported feeling ok , requesting to go back to his [facility], denied any perceptual disturbances nor suicidal ideations or homicidal ideations. Patient agreed to continue treatment and follow up appointments for continuity of care. Patient advised to call 911 or go nearest ED in case of emergency. Patient agreed with plan. Results Blood Pressure 129 / 76 Vital Signs Date Time Temp Pulse Resp B/P (MAP) Pulse Ox O2 Delivery O2 Flow Rate FiO2 09/02/17 06:00 98.2 83 18 129/76 (93) 98 Laboratory Results Test 08/24/17 13:17 Cholesterol Level 116 MG/DL (120-200) HDL Cholesterol 52.7 MG/DL (40.0-60.0) Hemoglobin A1c 5.9 % (4.3-6.0) LDL Cholesterol 54 MG/DL (0-99) Triglycerides Level 47 MG/DL (42-150) Summary of Procedures none Imaging Last Impressions Head CT 08/18/17 0000 Signed Impressions: Service Date/Time: , August 18, 2017 17:17 - CONCLUSION: 1. Limited examination due to patient positioning and motion. 2. No gross acute intracranial abnormality. 3. Right maxillary sinus mucosal disease. Harlan Riley MD Pending results at discharge: No Medications # of Antipsychotic meds at D/C: 1 Approp Antipsych med options 1 - Minimum of three failed multiple trials of monotherapy. 2 - Documented plan to taper to monotherapy due to previous use of multiple meds OR cross-taper in progress at D/C. 3 - Documentation of augmentation of Clozapine. 4 - Justification other than those listed in allowable values 1-3, document here : Discharge Discharge Date: Sep 02, 2017 Discharge Diagnosis: (1) Schizophrenia ICD Code: F20.9 - Schizophrenia, unspecified Status: Chronic Pt Condition on Discharge: Stable Discharge Disposition: [facility] Discharge Instructions Diet Instructions: Heart Healthy Diet Activities you can perform: Regular-No Restrictions Discharge Time > 30 minutes Mental Status Examination Appearance: Disheveled (unshaven) Consciousness: Alert Orientation: Person (stated that his name was not Fausto Narvaez) Motor Activity: Normal gait Speech: Unremarkable Language: Other (limited) Fund of Knowledge: Inadequate Attention and Concentration: Inadequate Memory: Unremarkable Mood: Other ("ok") Affect: Flat, Other (noted to have darting eye contact) Thought Process & Associations: Goal directed, Linear, Other (concrete) Thought Content: Appropriate Hallucination Type: None Delusion Type: None Suicidal Ideation: No Suicidal Plan: No Suicidal Intention: No Homicidal Ideation: No Homicidal Plan: No Homicidal Intention: No Insight: Fair Judgment: Impulsive Discharge/Advance Care Plan Health Problems: (1) Schizophrenia Goals to promote your health * To prevent worsening of your condition and complications * To maintain your health at the optimal level Directions to meet your goals Take your medications as prescribed Follow your dietary instruction Follow activity as directed Keep your appointments as scheduled Take your immunizations and boosters as scheduled If your symptoms worsen call your PCP, if no PCP go to Urgent Care Center or Emergency Room For 14/03 questions related to your inpatient stay or results of tests pending at discharge, please contact Dr. Trenton Callaway at Smoking is Dangerous to Your Health. Avoid second hand smoking Trenton Callaway MD Sep 02, 2017 09:27
[2017-09-02] MEDS: ENOXAPARIN SODIUM 40 MG/0.4 ML SYRINGE SQ SCH (10:01)
[2017-09-02] MEDS: POLYETHYLENE GLYCOL 17 GM PKG PO SCH (10:01)
[2017-09-02] MEDS: FERROUS SULFATE 325 MG (65 MG ELEMENTAL IRON) TAB PO SCH (10:01)
[2017-09-02] MEDS: MULTIVITAMIN TAB PO SCH (10:01)
[2017-09-02] MEDS: FOLIC ACID 1 MG TAB PO SCH (10:01)
[2017-09-02] MEDS: NICOTINE 21 MG/24 HR PATCH T-DERMAL SCH (10:01)
[2017-09-02] MEDS: HALOPERIDOL LACTATE 5 MG/ML AMP IM SCH (10:01)
[2017-09-02] MEDS: CALCIUM CARBONATE 1.25 GM (CA 500 MG) TAB PO SCH (10:01)
--- NOTE | 2017-09-02 10:14 | HHI.PR ---
Subjective Remarks No acute events overnight. Afebrile, vital signs stable. Patient's pulse ox has improved. He refuses to answer any questions or engage in the examination. Objective Vitals Vital Signs Date Time Temp Pulse Resp B/P (MAP) Pulse Ox O2 Delivery O2 Flow Rate FiO2 09/02/17 06:00 98.2 83 18 129/76 (93) 98 09/01/17 18:00 97.8 76 18 128/78 (95) 96 I/O 09/01/17 09/01/17 09/01/17 09/02/17 09/02/17 09/02/17 07:00 15:00 23:00 07:00 15:00 23:00 Intake Total 840 ml 2101 ml 0 ml 400 ml Balance 840 ml 2101 ml 0 ml 400 ml Intake Oral 840 ml 2101 ml 0 ml 400 ml # Voids 2 2 2 Objective Remarks GENERAL: This is a well-nourished, well-developed patient, in no apparent distress. CARDIOVASCULAR: Regular rate and rhythm RESPIRATORY: Clear to auscultation bilaterally. No wheezes, rales or rhonchi GASTROINTESTINAL: Abdomen soft, non-tender, nondistended. Normal active bowel sounds MUSCULOSKELETAL: Extremities without clubbing, cyanosis, or edema. NEURO: did not answer my questions or follow commands A/P Problem List: (1) Schizophrenia ICD Code: F20.9 - Schizophrenia, unspecified Status: Chronic Assessment and Plan Patient is a 52-year-old male who came in under [employer] act for refusing indications, food and drink. He is now admitted to medical psychiatry for further evaluation. Consulted for medical management. Schizophrenia with acute psychosis and at times, tone - Managed by psychiatry team - Patient now is selectively taking his medications. - Patient does not have any family, lives at an [facility]. - Mental health court with assigned health clinical manager home care. - Patient will receive medications with involuntary hospitalization. Continue with Risperdal Refusal of medications, food, drinks - Patient has been eating and drinking yesterday -Nursing staff to document percentage of meals intake - Most likely patient refusal intermittently on his medications and oral intake is secondary to his schizophrenia, psychiatry team continues to encourage patient to comply with medication treatment, now with health clinical manager home care. Coarse breath sounds 1/10 and unknown if patient has a history of tobacco use, today his lung exam is clear and he oxygen saturation is improved/stable. Portal chest x-ray order was canceled due to patient's refusal. Continue to monitor patient clinically. No fevers and no signs and symptoms upper respiratory infection. DVT prophylaxis- encourage ambulation; Esther Rivera MD Sep 02, 2017 10:14
== END 2017-09-02 10:00 | DRG 885 ==
LOC: NEPD 13:05 → NEDA 08-19 00:05 → H4EA 08-19 00:31
PROVIDERS: ADMIT Student in an Organized Health Care Education/Training Program; ATTEND Student in an Organized Health Care Education/Training Program
DX: F20.9 Schizophrenia, unspecified (principal); Z91.14 Patient's other noncompliance with medication regimen; F41.9 Anxiety disorder, unspecified; Z91.19 Patient's noncompliance with other medical treatment and regimen; Z53.20 Procedure and treatment not carried out because of patient's decision for unspecified reasons
CPT/HCPCS: 70450; 80053; 80061; 80307; 82306; 82607; 83036; 84443; 85025; 93005; J1630; J2060

== ENCOUNTER 2018-01-26 20:08 | Inpatient (IN) | payer MEDICARE, OTHER ==
[~2018-01-26] VITALS: Ht 180.3 cm; Wt 69.0 kg
[~2018-01-26 20:08] MED LIST: CALC600T4 PO; FERR325T18 PO; FOLI1TAB6 PO; MULTTAB67 PO; POLY17S PO; RISP3TAB2 PO; TRAZ50TA12 PO
[2018-01-26 20:22] VITALS: BP 150/93; PULSE 73; RESP 16; TEMP 98.7; O2SAT 95
[2018-01-26] MEDS ORDERED: HALOPERIDOL LACTATE 5 MG/ML AMP IM ONE (20:30)
[2018-01-26] MEDS ORDERED: LORazepam 2 MG/ML VIAL IM ONE (20:30)
--- NOTE | 2018-01-26 20:35 | PD ---
HPI Chief Complaint: Psychiatric Symptoms Time Seen by Provider: 20:25 Travel History International Travel<30 days: No Contact w/Intl Traveler<30days: No Traveled to known affect area: No History of Present Illness HPI 52-year-old black male presents emergency department under [place] act. The patient lives in an [facility]. He has a history of schizophrenia. He had stopped taking his medication. He appears he has been cheeking it as well as refusing. The patient had a similar episode approximately 1 year ago and was seen in the ER and admitted to the hospital for stabilization. The patient once again has been acting bizarre. He has been nonverbal. The patient here is unwilling to answer questions. Patient does appear to be responding to internal stimuli. PFSH Past Medical History Narrative Medical Schizophrenia, hepatitis C, hidradenitis, diabetes, osteopenia, constipation Schizophrenia: Yes Tetanus Vaccination: Unknown Past Surgical History Surgical History: Unable to Obtain Social History Alcohol Use: No Tobacco Use: No Allergies-Medications (Allergen,Severity, Reaction): Coded Allergies: No Known Allergies (Unverified , 08/18/17) Reported Meds & Prescriptions Reported Meds & Active Scripts Active Folic Acid 1 Mg Tablet 1 Mg PO DAILY 30 Days Multiple Vitamin 1 Tab 1 Tab PO DAILY 30 Days Ferrous Sulfate 325 Mg (65 Mg Iron) Tablet 325 Mg PO BIDPC 30 Days Reported Calcium 600+D 200 (Calcium Carbonate-Vitamin D) 600-200 Mg-Unit Tab 1 Tab PO BID Risperidone 2 Mg Tab 2 Mg PO Q12HR Polyethylene Glycol 3350 Powder (Polyethylene Glycol) 17 Gram Pow 17 Gm PO DAILY Review of Systems ROS Limitations: Uncooperative, Psychotic Physical Exam Narrative GENERAL: Well-nourished, well-developed patient. SKIN: Warm and dry. HEAD: Normocephalic and atraumatic. EYES: No scleral icterus. No injection or drainage. ENT: No nasal drainage noted. Mucous membranes pink. Airway patent. NECK: Supple, trachea midline. Moves head freely without obvious discomfort. CARDIOVASCULAR: Regular rate and rhythm without murmurs, gallops, or rubs. RESPIRATORY: Patient has decreased breath sounds diffusely. He has scattered rhonchi. GASTROINTESTINAL: Abdomen soft, non-tender, nondistended. EXTREMITIES: No cyanosis or edema. BACK: Nontender without obvious deformity. No CVA tenderness. NEURO patient is alert but does not respond to questioning. He is refusing to answer. He appears to be internalizing Data Data Last Documented VS Vital Signs Date Time Temp Pulse Resp B/P (MAP) Pulse Ox O2 Delivery O2 Flow Rate FiO2 01/26/18 22:25 77 16 132/79 (96) 96 Room Air 01/26/18 20:22 98.7 Orders Orders Complete Blood Count With Diff (01/26/18 20:30) Comprehensive Metabolic Panel (01/26/18 20:30) Thyroid Stimulating Hormone (01/26/18 20:30) Psych Screen (01/26/18 20:30) Haloperidol Inj (Haldol Inj) (01/26/18 20:30) Lorazepam Inj (Ativan Inj) (01/26/18 20:30) Drug Screen, Random Urine (01/26/18 20:30) Alcohol (Ethanol) (01/26/18 20:30) Chest, Pa & Lat (01/26/18 20:35) Comprehensive Metabolic Panel (01/27/18 00:16) Alcohol (Ethanol) (01/27/18 00:16) Free Thyroxine (T4) (01/27/18 00:16) Complete Blood Count With Diff (01/27/18 00:21) Thyroid Stimulating Hormone (01/27/18 00:16) Albuterol Hfa Inh (Proair Hfa Inh) (01/27/18 01:45) Azithromycin (Zithromax) (01/27/18 01:45) Labs Laboratory Tests Test 01/26/18 20:36 01/26/18 21:26 01/26/18 23:48 Urine Opiates Screen NEG Urine Barbiturates Screen NEG Urine Amphetamines Screen NEG Urine Benzodiazepines Screen NEG Urine Cocaine Screen NEG Urine Cannabinoids Screen NEG White Blood Count TH/MM3 6.3 TH/MM3 Corrected White Blood Count TH/MM3 Red Blood Count MIL/MM3 3.91 MIL/MM3 Hemoglobin GM/DL 12.8 GM/DL Hematocrit % 35.8 % Mean Corpuscular Volume FL 91.4 FL Mean Corpuscular Hemoglobin PG 32.7 PG Mean Corpuscular Hemoglobin Concent % 35.7 % Red Cell Distribution Width % 13.9 % Platelet Count TH/MM3 197 TH/MM3 Mean Platelet Volume FL 8.9 FL Neutrophils (%) (Auto) % 55.6 % Lymphocytes (%) (Auto) % 30.4 % Monocytes (%) (Auto) % 9.0 % Eosinophils (%) (Auto) % 3.8 % Basophils (%) (Auto) % 1.2 % Neutrophils # (Auto) TH/MM3 3.5 TH/MM3 Lymphocytes # (Auto) TH/MM3 1.9 TH/MM3 Monocytes # (Auto) TH/MM3 0.6 TH/MM3 Eosinophils # (Auto) TH/MM3 0.2 TH/MM3 Basophils # (Auto) TH/MM3 0.1 TH/MM3 CBC Comment DIFF FINAL Differential Comment Blood Urea Nitrogen MG/DL 9 MG/DL Creatinine MG/DL 0.92 MG/DL Random Glucose MG/DL 71 MG/DL Total Protein GM/DL 8.9 GM/DL Albumin GM/DL 2.7 GM/DL Calcium Level MG/DL 8.3 MG/DL Alkaline Phosphatase U/L 85 U/L Aspartate Amino Transf (AST/SGOT) U/L 21 U/L Alanine Aminotransferase (ALT/SGPT) U/L 17 U/L Total Bilirubin MG/DL 0.3 MG/DL Sodium Level MEQ/L 140 MEQ/L Potassium Level MEQ/L 3.9 MEQ/L Chloride Level MEQ/L 104 MEQ/L Carbon Dioxide Level MEQ/L 30.0 MEQ/L Anion Gap MEQ/L 6 MEQ/L Estimat Glomerular Filtration Rate ML/MIN 86 ML/MIN Thyroid Stimulating Hormone 3rd Gen uIU/ML 0.775 uIU/ML Ethyl Alcohol Level MG/DL LESS THAN 3 MG/DL Free Thyroxine 1.04 NG/DL MDM Medical Decision Making Medical Screen Exam Complete: Yes Emergency Medical Condition: Yes Medical Record Reviewed: Yes Interpretation(s) CBC & BMP Diagram 01/26/18 21:26 Total Protein , Albumin , Calcium Level , Alkaline Phosphatase , Aspartate Amino Transf (AST/SGOT) , Alanine Aminotransferase (ALT/SGPT) , Total Bilirubin 01/26/18 23:48 Total Protein 8.9 H, Albumin 2.7 L, Calcium Level 8.3 L, Alkaline Phosphatase 85 , Aspartate Amino Transf (AST/SGOT) 21, Alanine Aminotransferase (ALT/SGPT) 17, Total Bilirubin 0.3 Last 24 hours Impressions Chest X-Ray 01/26/182034 Signed Impressions: CONCLUSION: Minimal subsegmental airspace disease right lung base. Differential diagnosis i ncludes subsegmental atelectasis or mild bronchopneumonia. No effusion. Differential Diagnosis MDM: High Differential diagnoses: Schizophrenia, schizoaffective disorder, bipolar, anxiety, depression, adjustment reaction, mood disorder NOS, ODD, depressive disorder NOS, dementia, dementia with agitation, psychosis NOS, substance induced mood disorder, DMDD, Asperger syndrome, infection,electrolyte abnormality, malingering. Narrative Course Mental health screening discussed with the patient. Psychiatric screen ordered. The patient is ordered Haldol 5 mg IM and Ativan 2 mg IM. This is the same medicine he was given last year at his initial evaluation. Patient's x-ray shows possible bronchopneumonia. Patient is given Zithromax 500 mg p.o. We have also ordered a albuterol inhaler that he could use 2 puffs every 4 hours during his stay here in the ER. The patient will be discharged with a prescription for a Z-Arturo and an albuterol inhaler. The patient has been medically cleared. This is medical clearance for psychiatric admission, right bronchial pneumonia Diagnosis Primary Impression: Medical clearance for psychiatric admission Additional Impression: Bronchopneumonia Scripts Albuterol 6.7 GM Inh (Proventil Hfa 6.7 GM Inh) 90 Mcg/Act Aer 2 PUFF INH Q4-6H Y for SHORTNESS OF BREATH, #1 INHALER 0 Refills Prov: Jaden Luna MD 01/27/18 Azithromycin (Zithromax Z-Arturo) 250 Mg Dspk 250 MG PO DIRECTED for Infection, #1 DSPK 0 Refills 500 MG (2 tabs) day 1, then 1 tab days 2-5. Prov: Jaden Luna MD 01/27/18 Condition: Nato Melendrez Jan 26, 2018 20:35
[2018-01-26 22:25] VITALS: BP 132/79; PULSE 77; RESP 16; O2SAT 96
[2018-01-26] MEDS ORDERED: CALCTAB19 PO (22:32)
[2018-01-26] MEDS ORDERED: RISP2TAB2 PO (22:32)
--- NOTE | 2018-01-27 00:25 | RADRPT ---
EXAM DATE: 01/27/2018 12:09 AM EDT AGE/SEX: 52 years / Male INDICATIONS: Cough. CLINICAL DATA: This is the patient's initial encounter. Patient reports that signs and symptoms have been present for 1 day and indicates a pain score of Nonresponsive. MEDICAL/SURGICAL HISTORY: None. None. COMPARISON: No prior exams available for comparison. FINDINGS: There is some mild subsegmental airspace disease at the right lung base with elevated right hemidiaph ragm. No effusion. No pneumothorax. Heart size normal. CONCLUSION: Minimal subsegmental airspace disease right lung base. Differential diagnosis includes subsegmental a telectasis or mild bronchopneumonia. No effusion. Electronically signed by: Nato Self MD 01/27/2018 12:24 AM EDT
[2018-01-27 00:51] LABS: AUTOMATED NEUTROPHIL # 3.5 TH/MM3 (1.8-7.7); BASOPHIL # 0.1 TH/MM3 (0-0.2); BASOPHIL % 1.2 % (0.0-2.0); EOSINOPHIL # 0.2 TH/MM3 (0-0.4); EOSINOPHIL % 3.8 % (0.0-4.0); HEMATOCRIT 35.8 % (39.0-51.0); HEMOGLOBIN 12.8 GM/DL (13.0-17.0); LYMPH % 30.4 % (9.0-44.0); LYMPHOCYTE # 1.9 TH/MM3 (1.0-4.8); MEAN CELL VOLUME 91.4 FL (80.0-100.0); MEAN CORPUSCULAR HEMOGLOBIN 32.7 PG (27.0-34.0); MEAN CORPUSCULAR HGB CONC 35.7 % (32.0-36.0); MEAN PLATELET VOLUME 8.9 FL (7.0-11.0); MONOCYTE # 0.6 TH/MM3 (0-0.9); NEUT % 55.6 % (16.0-70.0); PLATELET COUNT 197 TH/MM3 (150-450); RED BLOOD COUNT 3.91 MIL/MM3 (4.50-5.90); RED CELL DISTRIBUTION WIDTH 13.9 % (11.6-17.2); WHITE BLOOD COUNT 6.3 TH/MM3 (4.0-11.0)
[2018-01-27 01:07] LABS: ALBUMIN 2.7 GM/DL (3.4-5.0); ALKALINE PHOSPHATASE 85 U/L (45-117); ALT (GPT) 17 U/L (12-78); AST (GOT) 21 U/L (15-37); BLOOD UREA NITROGEN 9 MG/DL (7-18); CALCIUM 8.3 MG/DL (8.5-10.1); CHLORIDE 104 MEQ/L (98-107); CREATININE 0.92 MG/DL (0.60-1.30); FREE T4 1.04 NG/DL (0.76-1.46); GLOMERULAR FILTRATION RATE 86 ML/MIN (>89); GLUCOSE,RANDOM 71 MG/DL (74-106); SODIUM (NA) 140 MEQ/L (136-145); TOTAL BILIRUBIN ADULT 0.3 MG/DL (0.2-1.0); TOTAL PROTEIN 8.9 GM/DL (6.4-8.2)
[2018-01-27] MEDS ORDERED: ZITHTAB PO (01:35)
[2018-01-27] MEDS ORDERED: ALBU6.7H INH (01:35)
[2018-01-27] MEDS ORDERED: ALBUTEROL SULFATE 90 MCG/ACT HFA 8 GM INHALER INH PRN ×2 (01:45→10:15)
[2018-01-27] MEDS ORDERED: AZITHROMYCIN 250 MG TAB PO ONE (01:45)
[2018-01-27 02:16] VITALS: BP 133/89; PULSE 85; RESP 17; O2SAT 95
[2018-01-27] MEDS ORDERED: NICOTINE 21 MG/24 HR PATCH T-DERMAL ONE (04:15)
[2018-01-27 06:29] VITALS: BP 168/92; PULSE 99; RESP 19; O2SAT 97
[2018-01-27] MEDS ORDERED: QUET400T PO (09:50)
[2018-01-27] MEDS ORDERED: LISI10TA3 PO (09:52)
[2018-01-27] MEDS ORDERED: LORazepam 2 MG/ML VIAL IM PRN ×2 (10:15)
[2018-01-27] MEDS ORDERED: MAGNESIUM HYDROXIDE SUSP 30 ML CUP PO PRN (10:15)
[2018-01-27] MEDS ORDERED: ALUMINUM/MAGNESIUM/SIMETH 30 ML CUP PO PRN (10:15)
[2018-01-27] MEDS ORDERED: ACETAMINOPHEN 325 MG TAB PO PRN (10:15)
[2018-01-27] MEDS ORDERED: LORazepam 0.5 MG TAB PO PRN (10:15)
[2018-01-27] MEDS ORDERED: LORazepam 1 MG TAB PO PRN (10:15)
[2018-01-27] MEDS: risperiDONE 1 MG TAB PO SCH ×2 (10:35→20:04)
[2018-01-27] MEDS: LISINOPRIL 10 MG TAB PO SCH (10:35)
[2018-01-27 11:30] VITALS: BP 133/80; PULSE 88; RESP 19; TEMP 98.4; O2SAT 88
--- NOTE | 2018-01-27 13:54 | HHI.HP ---
Provisional Diagnosis Admission Date Jan 27, 2018 at 10:13 [place] I. Schizophrenia [place] II. Deferred [place] III. Hypertension, acute pneumonia Certification of Person's Competence To Provide Express and Informed Consent I have personally examined Fausto Narvaez , a person being served at [facility] on, Jan 27, 2018 13:44. Express and informed consent means consent voluntarily given in writing, by a competent person, after sufficient explanation and disclosure of the subject matter involved to enable the person to make a knowing and willful decision without any element of force, fraud, deceit, duress, or other form of constraint or coercion. This person is 18 years of age or older, is not now known to be incompetent to consent to treatment with a guardian advocate, and does not have a health care surrogate or proxy currently making medical treatment decisions. I have found this person to be one of the following: [] Competent to provide express and informed consent, as defined above, for voluntary admission to this facility and is competent to provide express and informed consent for treatment. He/she has the consistent capacity to make well reasoned, willful, and knowing decisions concerning his or her medical or mental health treatment. The person fully and consistently understands the purpose of the admission for examination/placement and is fully capable of personally exercising all rights [place] Incompetent to provide express and informed consent to voluntary admission, and this is incompetent to provide express and informed consent to treatment. The person must be transferred to involuntary status and a petition for a guardian advocate filed with the Circuit Court. [x] Refusing to provide express and informed consent to voluntary admission but is competent to provide express and informed consent for treatment. The person must be discharged or transferred to involuntary status. Form shall be completed within 24 hours of a person's arrival at the receiving facility and filed in the clinical record of each person: 1. Admitted on a voluntary basis 2. Permitted to provide express and informed consent to his/her own treatment 3. Allowed to transfer from involuntary to voluntary status 4. Prior to permitting a person to consent to his or her own treatment after having been previously found incompetent to consent to treatment. History of Present Illness Capacity: Has Capacity HPI The patient is a 52-year-old Afro[place] man, unemployed, on SSI, single, domiciled an assisted living facility, with a past psychiatric history of schizophrenia, multiple previous psychiatric hospitalizations, last one here in [place] in July 2017, he denies suicide attempts or self-injurious behavior , medical history of HTN, who was brought in under [place] act from his residential facility due to refusing medications, oppositional, refusing to to eat, acting strange, no eating, staring and nonresponsive. She was found lying in hospital bed awake alert, poor eye contact but refusing to speak with jingle writer despite encouragement. Since the patient arrived to the ER he has been secluded , last night became quite agitated and verbally hostile, had to be medicated with Haldol 5 mg IM. Patient noted to be having minimal verbal interactions with staff and have is mostly noted to be in bed. In my psychiatric evaluation the patient continues to be selectively mute, just answer some of my questions selectively, seems to be internally preoccupied, paranoid-like, requesting to have order his medications. He says that he feels much better, he is just oriented to person, disoriented in time and place. Psychiatric history: Previous psychiatric diagnoses of schizophrenia as per chart, hospitalized in [place] in July 2017, patient recent medication regimen as noted in facilities documentation include risperidone 2 mg once daily , ferrous sulfate 325 mg once daily, quetiapine 400 mg twice daily. Past medical history: Hypertension Allergies: NKDA as per chart Substance use history: Unknown history patient not participating in interview Social history: [facility]omiciled at [facility]), single, unemployed, supported by [facility] Review of Systems Constitutional: DENIES: Diaphoretic episodes, Fatigue, Fever, Weight gain, Weight loss, Chills, Dizziness, Change in appetite, Night Sweats Endocrine: DENIES: Heat/cold intolerance, Polydipsia, Polyuria, Polyphagia Eyes: DENIES: Blurred vision, Diplopia, Eye inflammation, Eye pain, Vision loss , Photosensitivity, Double Vision Ears, nose, mouth, throat: DENIES: Tinnitus, Hearing loss, Vertigo, Nasal discharge, Oral lesions, Throat pain, Hoarseness, Ear Pain, Running Nose, Epistaxis, Sinus Pain, Toothache, Odynophagia Respiratory: DENIES: Apneas, Cough, Snoring, Wheezing, Hemoptysis, Sputum production, Shortness of breath Cardiovascular: DENIES: Chest pain, Palpitations, Syncope, Dyspnea on Exertion , PND, Lower Extremity Edema, Orthopnea, Claudication Gastrointestinal: DENIES: Abdominal pain, Black stools, Bloody stools, Constipation, Diarrhea, Nausea, Vomiting, Difficulty Swallowing, Anorexia Genitourinary: DENIES: Sexual dysfunction, Urinary frequency, Urinary incontinence, Urgency, Hematuria, Dysuria, Nocturia, Penile Discharge, Testicular Pain, Testicular Swelling Musculoskeletal: DENIES: Joint pain, Muscle aches, Stiffness, Joint Swelling, Back pain, Neck pain Integumentary: DENIES: Abnormal pigmentation, Nail changes, Pruritus, Rash Hematologic/lymphatic: DENIES: Bruising, Lymphadenopathy Immunologic/allergic: DENIES: Eczema, Urticaria Neurologic: DENIES: Abnormal gait, Headache, Localized weakness, Paresthesias, Seizures, Speech Problems, Tremor, Poor Balance Psychiatric: COMPLAINS OF: Delusions, DENIES: Anxiety, Confusion, Mood changes , Depression, Hallucinations, Agitation, Suicidal Ideation, Homicidal Ideation Substance Abuse History Drugs/Alcohol past 12 months He denies the use of drugs and alcohol Past Family Social History Coded Allergies: No Known Allergies (Unverified , 08/18/17) Active Scripts Albuterol 6.7 GM Inh (Proventil Hfa 6.7 GM Inh) 90 Mcg/Act Aer, 2 PUFF INH Q4- 6H Y for SHORTNESS OF BREATH, #1 INHALER 0 Refills Prov:Jaden Luna MD 01/27/18 Azithromycin (Zithromax Z-Arturo) 250 Mg Dspk, 250 MG PO DIRECTED for Infection , #1 DSPK 0 Refills 500 MG (2 tabs) day 1, then 1 tab days 2-5. Prov:Jaden Luna MD 01/27/18 Folic Acid (Folic Acid) 1 Mg Tablet, 1 MG PO DAILY for health for 30 Days, #30 TAB Prov:Trenton Callaway MD 09/02/17 Multiple Vitamin (Multiple Vitamin) 1 Tab, 1 TAB PO DAILY for Nutritional Supplement for 30 Days, #30 TAB 0 Refills Prov:Trenton Callaway MD 09/02/17 Ferrous Sulfate (Ferrous Sulfate) 325 Mg (65 Mg Iron) Tablet, 325 MG PO BIDPC for Nutritional Supplement for 30 Days, #60 TAB 0 Refills Prov:Trenton Callaway MD 09/02/17 Reported Medications Lisinopril (Lisinopril) 10 Mg Tab, 10 MG PO DAILY, #30 TAB 0 Refills 01/27/18 Quetiapine (Quetiapine) 400 Mg Tab, 400 MG PO HS, #30 TAB 0 Refills 01/27/18 Calcium Carbonate-Vitamin D (Calcium 600+D 200) 600-200 Mg-Unit Tab, 1 TAB PO BID for Nutritional Supplement, TAB 0 Refills 01/26/18 Risperidone (Risperidone) 2 Mg Tab, 2 MG PO Q12HR, #60 TAB 0 Refills 01/26/18 Polyethylene Glycol 3350 Powder (Polyethylene Glycol 3350 Powder) 17 Gram Pow, 17 GM PO DAILY for Constipation, #1 BOTTLE 0 Refills 08/18/17 Discontinued Scripts Trazodone (Trazodone) 50 Mg Tab, 50 MG PO HS for health for 30 Days, #30 TAB Prov:Trenton Callaway MD 09/02/17 Calcium Carbonate (Calcium Carbonate) 1,500 Mg Tab, 1500 MG PO DAILY for Calcium Supplement for 30 Days, #30 TAB 0 Refills 1,500 mg calcium carbonate (600 mg elemental calcium) Prov:Trenton Callaway MD 09/02/17 Risperidone (Risperidone) 3 Mg Tab, 3 MG PO Q12HR for health, #60 TAB 0 Refills Prov:Trenton Callaway MD 09/02/17 Current Medications Medications (Trade) Dose Ordered Sig/Rajesh Route Start Time Stop Time Status Last Admin (Proair Hfa Inh) 2 puff Q4H PRN INH 01/27/18 01:45 01/27/18 02:01 (Proair Hfa Inh) 2 puff Q8HR ALT NEB PRN INH 01/27/18 10:15 (Zithromax) 250 mg Q24H PO 01/27/18 23:00 (Prinivil) 10 mg DAILY PO 01/27/18 10:15 01/27/18 10:35 (SEROquel) 400 mg HS PO 01/27/18 21:00 (risperDAL) 2 mg Q12HR PO 01/27/18 10:30 01/27/18 10:35 (Ativan) 1 mg Q6H PRN PO 01/27/18 10:15 (Ativan Inj) 1 mg Q6H PRN IM 01/27/18 10:15 (Tylenol) 650 mg Q4H PRN PO 01/27/18 10:15 (Milk Of Magnesia Liq) 30 ml DAILY PRN PO 01/27/18 10:15 (Mag-Al Plus Susp Liq) 30 ml Q6H PRN PO 01/27/18 10:15 (Habitrol 21 Mg Patch.24 Hr) 1 patch DAILY T-DERMAL 01/28/18 09:00 Miscellaneous Information 1 HS T-DERMAL 01/27/18 21:00 Physical Exam No tremors, no EPS, no psychomotor agitation or retardation, no gait disturbance Vital Signs Vital Signs Date Time Temp Pulse Resp B/P (MAP) Pulse Ox O2 Delivery O2 Flow Rate FiO2 01/27/18 11:40 01/27/18 06:29 99 19 97 Room Air 01/26/18 20:22 98.7 Lab Results Test 01/26/18 20:36 01/26/18 21:26 01/26/18 23:48 Urine Opiates Screen NEG Urine Barbiturates Screen NEG Urine Amphetamines Screen NEG Urine Benzodiazepines Screen NEG Urine Cocaine Screen NEG Urine Cannabinoids Screen NEG White Blood Count TH/MM3 6.3 TH/MM3 Corrected White Blood Count TH/MM3 Red Blood Count MIL/MM3 3.91 MIL/MM3 Hemoglobin GM/DL 12.8 GM/DL Hematocrit % 35.8 % Mean Corpuscular Volume FL 91.4 FL Mean Corpuscular Hemoglobin PG 32.7 PG Mean Corpuscular Hemoglobin Concent % 35.7 % Red Cell Distribution Width % 13.9 % Platelet Count TH/MM3 197 TH/MM3 Mean Platelet Volume FL 8.9 FL Neutrophils (%) (Auto) % 55.6 % Lymphocytes (%) (Auto) % 30.4 % Monocytes (%) (Auto) % 9.0 % Eosinophils (%) (Auto) % 3.8 % Basophils (%) (Auto) % 1.2 % Neutrophils # (Auto) TH/MM3 3.5 TH/MM3 Lymphocytes # (Auto) TH/MM3 1.9 TH/MM3 Monocytes # (Auto) TH/MM3 0.6 TH/MM3 Eosinophils # (Auto) TH/MM3 0.2 TH/MM3 Basophils # (Auto) TH/MM3 0.1 TH/MM3 CBC Comment DIFF FINAL Differential Comment Blood Urea Nitrogen MG/DL 9 MG/DL Creatinine MG/DL 0.92 MG/DL Random Glucose MG/DL 71 MG/DL Total Protein GM/DL 8.9 GM/DL Albumin GM/DL 2.7 GM/DL Calcium Level MG/DL 8.3 MG/DL Alkaline Phosphatase U/L 85 U/L Aspartate Amino Transf (AST/SGOT) U/L 21 U/L Alanine Aminotransferase (ALT/SGPT) U/L 17 U/L Total Bilirubin MG/DL 0.3 MG/DL Sodium Level MEQ/L 140 MEQ/L Potassium Level MEQ/L 3.9 MEQ/L Chloride Level MEQ/L 104 MEQ/L Carbon Dioxide Level MEQ/L 30.0 MEQ/L Anion Gap MEQ/L 6 MEQ/L Estimat Glomerular Filtration Rate ML/MIN 86 ML/MIN Thyroid Stimulating Hormone 3rd Gen uIU/ML 0.775 uIU/ML Ethyl Alcohol Level MG/DL LESS THAN 3 MG/DL Free Thyroxine 1.04 NG/DL Mental Status Examination Appearance: Appropriate, Dirty, Disheveled, Malodorous Consciousness: Alert Orientation: Person Motor Activity: Normal gait Speech: Other (Selectively mute) Language: Adequate Fund of Knowledge: Adequate Attention and Concentration: Adequate Memory: Unremarkable Mood: Appropriate Affect: Appropriate Thought Process & Associations: Loose associations Thought Content: Bizarre thinking, Preoccupations Hallucination Type: None Delusion Type: Paranoid Suicidal Ideation: No Suicidal Plan: No Suicidal Intention: No Homicidal Ideation: No Homicidal Plan: No Homicidal Intention: No Insight: Poor Judgment: Poor Assessment & Plan Problem List: (1) Schizophrenia ICD Codes: F20.9 - Schizophrenia, unspecified Status: Chronic Assessment & Plan: Patient presents selectively mute, oppositional, internally preoccupied, potentially paranoid. As per report the patient has been secluded , acting bizarre, not eating, refusing to drink, not taking his medications. Last night the patient became agitated and aggressive in the ER and had to be medicated with Haldol IM. Given his level of psychosis the patient has an elevated risk of danger to self and others. He will be admitted in psychiatry for stabilization and safety. Will restart Seroquel 400 mg at bedtime, Risperdal 2 mg twice daily. Continue azithromycin 250 mg twice daily for pneumonia diagnosed in the ER. Transfer patient to 2700 unit. Assessment & Plan Estimated LOS: days Sina Ferrara MD Jan 27, 2018 13:54
[2018-01-27] MEDS: QUEtiapine FUMARATE 200 MG TAB PO SCH (20:04)
[2018-01-27] MEDS: REMOVE OLD NICODERM (NICOTINE) PATCH T-DERMAL SCH (21:00)
[2018-01-27] MEDS: AZITHROMYCIN 250 MG TAB PO SCH (22:01)
[2018-01-28 06:30] VITALS: BP 111/71; PULSE 87; RESP 18; TEMP 97.9; O2SAT 99
[2018-01-28] MEDS: NICOTINE 21 MG/24 HR PATCH T-DERMAL SCH (09:32)
[2018-01-28] MEDS: risperiDONE 1 MG TAB PO SCH ×2 (09:33→21:55)
[2018-01-28] MEDS: LISINOPRIL 10 MG TAB PO SCH (09:33)
--- NOTE | 2018-01-28 12:31 | PD.PSY.CON ---
Provisional Diagnosis Admission Date Jan 27, 2018 at 10:13 Crooks I. Schizophrenia Crooks II. Deferred Crooks III. Hypertension, acute pneumonia History of Present Illness Service Psychiatry Consult Requested By Psychiatry Reason for Consult 2nd Opinion Primary Care Physician Unknown HPI Pt seen and discussed with staff. Chart reviewed. Pt was admitted to [facility] a BA due to psychosis. Pt was aggressive upon initial arrival to ED and required ETO. Today, pt has not been aggressive, but has been withdrawn, selectively mute and engaging in disorganized behaviors. He displays bizarre mannerisms and engages very little in interview. "I think I've had enough of you." He has been compliant with medications but is not agreeable to hospitalization. Psychiatric history: Previous psychiatric diagnoses of schizophrenia as per chart, hospitalized in [place] in July 2017, patient recent medication regimen as noted in facilities documentation include risperidone 2 mg once daily , ferrous sulfate 325 mg once daily, quetiapine 400 mg twice daily. Past medical history: Hypertension Allergies: NKDA as per chart Substance use history: Unknown history patient refuses to participate in interview. UDS at admission negative Social history: Domiciled at [facility], single, unemployed, supported by [facility] Past Family Social History Coded Allergies: No Known Allergies (Unverified , 08/18/17) Active Scripts Albuterol 6.7 GM Inh (Proventil Hfa 6.7 GM Inh) 90 Mcg/Act Aer, 2 PUFF INH Q4- 6H Y for SHORTNESS OF BREATH, #1 INHALER 0 Refills Prov:Jaden Luna MD 01/27/18 Azithromycin (Zithromax Z-Arturo) 250 Mg Dspk, 250 MG PO DIRECTED for Infection , #1 DSPK 0 Refills 500 MG (2 tabs) day 1, then 1 tab days 2-5. Prov:Jaden Luna MD 01/27/18 Folic Acid (Folic Acid) 1 Mg Tablet, 1 MG PO DAILY for health for 30 Days, #30 TAB Prov:Trenton Callaway MD 09/02/17 Multiple Vitamin (Multiple Vitamin) 1 Tab, 1 TAB PO DAILY for Nutritional Supplement for 30 Days, #30 TAB 0 Refills Prov:Trenton Callaway MD 09/02/17 Ferrous Sulfate (Ferrous Sulfate) 325 Mg (65 Mg Iron) Tablet, 325 MG PO BIDPC for Nutritional Supplement for 30 Days, #60 TAB 0 Refills Prov:Trenton Callaway MD 09/02/17 Reported Medications Lisinopril (Lisinopril) 10 Mg Tab, 10 MG PO DAILY, #30 TAB 0 Refills 01/27/18 Quetiapine (Quetiapine) 400 Mg Tab, 400 MG PO HS, #30 TAB 0 Refills 01/27/18 Calcium Carbonate-Vitamin D (Calcium 600+D 200) 600-200 Mg-Unit Tab, 1 TAB PO BID for Nutritional Supplement, TAB 0 Refills 01/26/18 Risperidone (Risperidone) 2 Mg Tab, 2 MG PO Q12HR, #60 TAB 0 Refills 01/26/18 Polyethylene Glycol 3350 Powder (Polyethylene Glycol 3350 Powder) 17 Gram Pow, 17 GM PO DAILY for Constipation, #1 BOTTLE 0 Refills 08/18/17 Discontinued Scripts Trazodone (Trazodone) 50 Mg Tab, 50 MG PO HS for health for 30 Days, #30 TAB Prov:Trenton Callaway MD 09/02/17 Calcium Carbonate (Calcium Carbonate) 1,500 Mg Tab, 1500 MG PO DAILY for Calcium Supplement for 30 Days, #30 TAB 0 Refills 1,500 mg calcium carbonate (600 mg elemental calcium) Prov:Trenton Callaway MD 09/02/17 Risperidone (Risperidone) 3 Mg Tab, 3 MG PO Q12HR for health, #60 TAB 0 Refills Prov:Trenton Callaway MD 09/02/17 Current Medications Medications (Trade) Dose Ordered Sig/Rajesh Route Start Time Stop Time Status Last Admin (Proair Hfa Inh) 2 puff Q4H PRN INH 01/27/18 01:45 01/27/18 02:01 (Proair Hfa Inh) 2 puff Q8HR ALT NEB PRN INH 01/27/18 10:15 (Zithromax) 250 mg Q24H PO 01/27/18 23:00 01/27/18 22:01 (Prinivil) 10 mg DAILY PO 01/27/18 10:15 01/28/18 09:33 (SEROquel) 400 mg HS PO 01/27/18 21:00 01/27/18 20:04 (risperDAL) 2 mg Q12HR PO 01/27/18 10:30 01/28/18 09:33 (Ativan) 1 mg Q6H PRN PO 01/27/18 10:15 (Ativan Inj) 1 mg Q6H PRN IM 01/27/18 10:15 (Tylenol) 650 mg Q4H PRN PO 01/27/18 10:15 (Milk Of Magnesia Liq) 30 ml DAILY PRN PO 01/27/18 10:15 (Mag-Al Plus Susp Liq) 30 ml Q6H PRN PO 01/27/18 10:15 (Habitrol 21 Mg Patch.24 Hr) 1 patch DAILY T-DERMAL 01/28/18 09:00 01/28/18 09:32 Miscellaneous Information 1 HS T-DERMAL 01/27/18 21:00 Physical Exam Vital Signs Vital Signs Date Time Temp Pulse Resp B/P (MAP) Pulse Ox O2 Delivery O2 Flow Rate FiO2 01/28/18 06:30 97.9 87 18 111/71 (84) 99 01/27/18 06:29 Room Air Mental Status Examination Appearance: Appropriate, Dirty, Disheveled, Malodorous Consciousness: Alert Orientation: Person Motor Activity: Normal gait Speech: Other (Selectively mute) Language: Adequate Fund of Knowledge: Adequate Attention and Concentration: Easily Distracted Memory: Unremarkable Mood: Irritable Affect: Flat Thought Process & Associations: Loose associations Thought Content: Bizarre thinking, Preoccupations Hallucination Type: None Delusion Type: Paranoid Suicidal Ideation: No Suicidal Plan: No Suicidal Intention: No Homicidal Ideation: No Homicidal Plan: No Homicidal Intention: No Insight: Poor Judgment: Poor Assessment & Plan Problem List: (1) Schizophrenia ICD Codes: F20.9 - Schizophrenia, unspecified Status: Chronic Assessment & Plan I agree that pt meets criteria for involuntary hospitalization due to psychosis and self neglect. LOS: Alanna Tyler MD Jan 28, 2018 12:31
[2018-01-28] MEDS: REMOVE OLD NICODERM (NICOTINE) PATCH T-DERMAL SCH (21:00)
[2018-01-28] MEDS: QUEtiapine FUMARATE 200 MG TAB PO SCH (21:55)
[2018-01-28] MEDS: AZITHROMYCIN 250 MG TAB PO SCH (23:03)
[2018-01-29] MEDS: NICOTINE 21 MG/24 HR PATCH T-DERMAL SCH (09:00)
[2018-01-29 09:14] LABS: BICARBONATE 27.9 MEQ/L (21.0-32.0); BLOOD UREA NITROGEN 15 MG/DL (7-18); CALCIUM 8.2 MG/DL (8.5-10.1); CHLORIDE 105 MEQ/L (98-107); CREATININE 1.04 MG/DL (0.60-1.30); GLOMERULAR FILTRATION RATE 74 ML/MIN (>89); GLUCOSE,RANDOM 75 MG/DL (74-106); SODIUM (NA) 141 MEQ/L (136-145)
[2018-01-29 09:15] LABS: TRIGLYCERIDES 72 MG/DL (42-150)
[2018-01-29 09:22] LABS: CHOLESTEROL 96 MG/DL (120-200); CHOLESTEROL/ HDL RATIO 1.97 RATIO; HDL CHOLESTEROL 48.6 MG/DL (40.0-60.0); LDL CHOLESTEROL 33 MG/DL (0-99)
[2018-01-29] MEDS: risperiDONE 1 MG TAB PO SCH ×2 (10:15→20:43)
[2018-01-29] MEDS: LISINOPRIL 10 MG TAB PO SCH (10:15)
[2018-01-29 10:21] LABS: HEMOGLOBIN A1C 5.9 % (4.3-6.0)
[2018-01-29 17:55] VITALS: BP 104/61; PULSE 91; RESP 18; TEMP 97.7; O2SAT 98
[2018-01-29] MEDS: QUEtiapine FUMARATE 200 MG TAB PO SCH (20:43)
[2018-01-29] MEDS: REMOVE OLD NICODERM (NICOTINE) PATCH T-DERMAL SCH (20:44)
[2018-01-29] MEDS: AZITHROMYCIN 250 MG TAB PO SCH (23:00)
--- NOTE | 2018-01-29 23:14 | HHI.PYPN ---
Subjective Remarks Pt seen and discussed with staff. He has been compliant with medications. He is guarded and paranoid, but has been more interactive and is compliant with medications. He states he gets angry when he doesn't take his medications. He remains disheveled. Eating meals. Mental Status Examination Appearance: Appropriate, Dirty, Disheveled, Malodorous Consciousness: Alert Orientation: Person Motor Activity: Normal gait Speech: Other (Selectively mute) Language: Adequate Fund of Knowledge: Adequate Attention and Concentration: Easily Distracted Memory: Unremarkable Mood: Irritable Affect: Flat Thought Process & Associations: Loose associations Thought Content: Bizarre thinking, Preoccupations Hallucination Type: None Delusion Type: Paranoid Suicidal Ideation: No Suicidal Plan: No Suicidal Intention: No Homicidal Ideation: No Homicidal Plan: No Homicidal Intention: No Insight: Poor Judgment: Poor Results Labs Test 01/29/18 07:03 Blood Urea Nitrogen 15 MG/DL Creatinine 1.04 MG/DL Random Glucose 75 MG/DL Calcium Level 8.2 MG/DL Sodium Level 141 MEQ/L Potassium Level 3.9 MEQ/L Chloride Level 105 MEQ/L Carbon Dioxide Level 27.9 MEQ/L Anion Gap 8 MEQ/L Estimat Glomerular Filtration Rate 74 ML/MIN Hemoglobin A1c 5.9 % Triglycerides Level 72 MG/DL Cholesterol Level 96 MG/DL LDL Cholesterol 33 MG/DL HDL Cholesterol 48.6 MG/DL Cholesterol/HDL Ratio 1.97 RATIO Vitals/IOs Vital Signs Date Time Temp Pulse Resp B/P (MAP) Pulse Ox O2 Delivery O2 Flow Rate FiO2 01/29/18 17:55 97.7 91 18 104/61 (75) 98 01/27/18 06:29 Room Air Assessment & Plan Problem List: (1) Schizophrenia ICD Codes: F20.9 - Schizophrenia, unspecified Status: Chronic Assessment & Plan Continue current tx plan. Estimated LOS: days Justification for Cont. Inpt. psychosis Alanna Das MD Jan 29, 2018 23:14
[2018-01-30 06:45] VITALS: BP 118/71; PULSE 107; RESP 18; TEMP 97.6; O2SAT 92
[2018-01-30] MEDS: risperiDONE 1 MG TAB PO SCH ×2 (08:01→21:19)
[2018-01-30] MEDS: LISINOPRIL 10 MG TAB PO SCH (08:01)
[2018-01-30] MEDS: NICOTINE 21 MG/24 HR PATCH T-DERMAL SCH (08:02)
--- NOTE | 2018-01-30 14:41 | HHI.PYPN ---
Subjective Remarks I have seen this patient for psychiatric reevaluation today. I have discussed the case with nurse in charge and also with medical student Stephany. Documentation from weekend reviewed. On psychiatric evaluation the patient is found eating his food. He is irritable, oppositional, guarded. He reports feeling okay, he says that he wants to be discharged. Patient reports that he needs to smoke cigarettes. He has been taking his medications, no significant side effects reported, eating his meals, but making accusations toward staff, at times paranoid and agitated, but not aggressive. During my evaluation the patient was found to be a little bit disorganized, but he could answer all my questions. Review of Systems Constitutional: DENIES: Diaphoretic episodes, Fatigue, Fever, Weight gain, Weight loss, Chills, Dizziness, Change in appetite, Night Sweats Endocrine: DENIES: Heat/cold intolerance, Polydipsia, Polyuria, Polyphagia Eyes: DENIES: Blurred vision, Diplopia, Eye inflammation, Eye pain, Vision loss , Photosensitivity, Double Vision Ears, nose, mouth, throat: DENIES: Tinnitus, Hearing loss, Vertigo, Nasal discharge, Oral lesions, Throat pain, Hoarseness, Ear Pain, Running Nose, Epistaxis, Sinus Pain, Toothache, Odynophagia Respiratory: DENIES: Apneas, Cough, Snoring, Wheezing, Hemoptysis, Sputum production, Shortness of breath Cardiovascular: DENIES: Chest pain, Palpitations, Syncope, Dyspnea on Exertion , PND, Lower Extremity Edema, Orthopnea, Claudication Gastrointestinal: DENIES: Abdominal pain, Black stools, Bloody stools, Constipation, Diarrhea, Nausea, Vomiting, Difficulty Swallowing, Anorexia Genitourinary: DENIES: Sexual dysfunction, Urinary frequency, Urinary incontinence, Urgency, Hematuria, Dysuria, Nocturia, Penile Discharge, Testicular Pain, Testicular Swelling Musculoskeletal: DENIES: Joint pain, Muscle aches, Stiffness, Joint Swelling, Back pain, Neck pain Integumentary: DENIES: Abnormal pigmentation, Nail changes, Pruritus, Rash Hematologic/lymphatic: DENIES: Bruising, Lymphadenopathy Immunologic/allergic: DENIES: Eczema, Urticaria Neurologic: DENIES: Abnormal gait, Headache, Localized weakness, Paresthesias, Seizures, Speech Problems, Tremor, Poor Balance Psychiatric: COMPLAINS OF: Mood changes, Agitation, Delusions, DENIES: Anxiety , Confusion, Depression, Hallucinations, Suicidal Ideation, Homicidal Ideation Mental Status Examination Appearance: Appropriate, Dirty, Disheveled, Malodorous Consciousness: Alert Orientation: Person Motor Activity: Normal gait Speech: Other (Selectively mute) Language: Adequate Fund of Knowledge: Adequate Attention and Concentration: Easily Distracted Memory: Unremarkable Mood: Irritable Affect: Flat Thought Process & Associations: Loose associations Thought Content: Bizarre thinking, Preoccupations Hallucination Type: None Delusion Type: Paranoid Suicidal Ideation: No Suicidal Plan: No Suicidal Intention: No Homicidal Ideation: No Homicidal Plan: No Homicidal Intention: No Insight: Poor Judgment: Poor Results Vitals/IOs Vital Signs Date Time Temp Pulse Resp B/P (MAP) Pulse Ox O2 Delivery O2 Flow Rate FiO2 01/30/18 06:45 97.6 107 18 118/71 (87) 92 01/27/18 06:29 Room Air Assessment & Plan Problem List: (1) Schizophrenia ICD Codes: F20.9 - Schizophrenia, unspecified Status: Chronic Assessment & Plan: Patient continues to be acutely psychotic. He shows prominent paranoia, disorganized behavior, agitation at times. We will increase Seroquel to 500 mg at bedtime. Assessment & Plan Estimated LOS: days Justification for Cont. Inpt. She is acutely psychotic, he needs to continue psychiatric hospitalization for stabilization. Sina Ferrara MD Jan 30, 2018 14:41
[2018-01-30] MEDS ORDERED: PILL SPLITTER OTHER PRN (14:45)
[2018-01-30] MEDS: REMOVE OLD NICODERM (NICOTINE) PATCH T-DERMAL SCH (21:00)
[2018-01-30] MEDS: QUEtiapine FUMARATE 200 MG TAB PO SCH (21:19)
[2018-01-30] MEDS: AZITHROMYCIN 250 MG TAB PO SCH (22:38)
[2018-01-31 06:32] VITALS: BP 125/66; PULSE 92; RESP 18; TEMP 97.4
[2018-01-31] MEDS: risperiDONE 1 MG TAB PO SCH (08:35)
[2018-01-31] MEDS: NICOTINE 21 MG/24 HR PATCH T-DERMAL SCH (08:35)
[2018-01-31] MEDS: LISINOPRIL 10 MG TAB PO SCH (08:35)
--- NOTE | 2018-01-31 13:20 | HHI.PYPN ---
Subjective Remarks The patient was seen today for psychiatric reevaluation. The case was discussed with nursing charge and also with medical student Stephany. Patient is found in his bed in the 2700 unit, he is sleeping, but arousable, calm, cooperative, a little bit irritable. Patient reports that he feels much better today, he is ready to be discharged. He says that he has been taking his medications, denies side effects. Patient states that he is taking his medication because he is a schizophrenic, but he does not want to "disclose classified information". Patient seems to be a little bit internally preoccupied and paranoid, he is redirectable. No agitation, no aggressive behavior reported in the last 24 hours. The patient has been compliant with medications. He is partially oriented in time and place. He is malodorous and disheveled was educated about the importance of keeping his hygiene. Review of Systems Constitutional: DENIES: Diaphoretic episodes, Fatigue, Fever, Weight gain, Weight loss, Chills, Dizziness, Change in appetite, Night Sweats Endocrine: DENIES: Heat/cold intolerance, Polydipsia, Polyuria, Polyphagia Eyes: DENIES: Blurred vision, Diplopia, Eye inflammation, Eye pain, Vision loss , Photosensitivity, Double Vision Ears, nose, mouth, throat: DENIES: Tinnitus, Hearing loss, Vertigo, Nasal discharge, Oral lesions, Throat pain, Hoarseness, Ear Pain, Running Nose, Epistaxis, Sinus Pain, Toothache, Odynophagia Respiratory: DENIES: Apneas, Cough, Snoring, Wheezing, Hemoptysis, Sputum production, Shortness of breath Cardiovascular: DENIES: Chest pain, Palpitations, Syncope, Dyspnea on Exertion , PND, Lower Extremity Edema, Orthopnea, Claudication Gastrointestinal: DENIES: Abdominal pain, Black stools, Bloody stools, Constipation, Diarrhea, Nausea, Vomiting, Difficulty Swallowing, Anorexia Genitourinary: DENIES: Sexual dysfunction, Urinary frequency, Urinary incontinence, Urgency, Hematuria, Dysuria, Nocturia, Penile Discharge, Testicular Pain, Testicular Swelling Musculoskeletal: DENIES: Joint pain, Muscle aches, Stiffness, Joint Swelling, Back pain, Neck pain Integumentary: DENIES: Abnormal pigmentation, Nail changes, Pruritus, Rash Hematologic/lymphatic: DENIES: Bruising, Lymphadenopathy Immunologic/allergic: DENIES: Eczema, Urticaria Neurologic: DENIES: Abnormal gait, Headache, Localized weakness, Paresthesias, Seizures, Speech Problems, Tremor, Poor Balance Psychiatric: COMPLAINS OF: Delusions, DENIES: Anxiety, Confusion, Mood changes , Depression, Hallucinations, Agitation, Suicidal Ideation, Homicidal Ideation Mental Status Examination Appearance: Appropriate, Dirty, Disheveled, Malodorous Consciousness: Alert Orientation: Person Motor Activity: Normal gait Speech: Other (Selectively mute) Language: Adequate Fund of Knowledge: Adequate Attention and Concentration: Easily Distracted Memory: Unremarkable Mood: Irritable Affect: Flat Thought Process & Associations: Loose associations Thought Content: Bizarre thinking, Preoccupations Hallucination Type: None Delusion Type: Paranoid Suicidal Ideation: No Suicidal Plan: No Suicidal Intention: No Homicidal Ideation: No Homicidal Plan: No Homicidal Intention: No Insight: Poor Judgment: Poor Results Vitals/IOs Vital Signs Date Time Temp Pulse Resp B/P (MAP) Pulse Ox O2 Delivery O2 Flow Rate FiO2 01/31/18 06:32 97.4 92 18 125/66 (85) 01/30/18 06:45 92 Assessment & Plan Problem List: (1) Schizophrenia ICD Codes: F20.9 - Schizophrenia, unspecified Status: Chronic Assessment & Plan: Patient has shown positive response to psychotropic, but still psychotic/paranoid. Today we will increase Risperdal to 3 mg twice daily. Psychoeducation provided. Assessment & Plan Estimated LOS: days Justification for Cont. Inpt. Patient is acutely psychotic. Sina Ferrara MD Jan 31, 2018 13:19
[2018-01-31 17:00] VITALS: BP 106/59; PULSE 84; RESP 18; TEMP 98.4; O2SAT 84
[2018-01-31] MEDS: risperiDONE 3 MG TAB PO SCH (20:32)
[2018-01-31] MEDS: QUEtiapine FUMARATE 200 MG TAB PO SCH (20:32)
[2018-01-31] MEDS: REMOVE OLD NICODERM (NICOTINE) PATCH T-DERMAL SCH (20:32)
[2018-01-31] MEDS: AZITHROMYCIN 250 MG TAB PO SCH (23:18)
[2018-02-01 05:42] VITALS: BP 110/65; PULSE 88; RESP 16; TEMP 98.2; O2SAT 100
[2018-02-01] MEDS: risperiDONE 3 MG TAB PO SCH (08:52)
[2018-02-01] MEDS: LISINOPRIL 10 MG TAB PO SCH (08:53)
[2018-02-01] MEDS: NICOTINE 21 MG/24 HR PATCH T-DERMAL SCH (09:00)
[2018-02-01] MEDS ORDERED: QUET1TAB9 PO (10:44)
[2018-02-01] MEDS ORDERED: RISP3 PO (10:44)
--- NOTE | 2018-02-01 14:24 | HHI.DS ---
Psychiatry Discharge Summary Advance Directive: Yes Mental Health AdvanceDirective: No Health Care Proxy: No Admission Admission Date Jan 27, 2018 at 10:13 Admission Diagnosis: Brief History Pt seen and discussed with staff. Chart reviewed. Pt was admitted to [facility] [place] under a BA due to psychosis. Pt was aggressive upon initial arrival to ED and required ETO. Today, pt has not been aggressive, but has been withdrawn, selectively mute and engaging in disorganized behaviors. He displays bizarre mannerisms and engages very little in interview. "I think I've had enough of you." He has been compliant with medications but is not agreeable to hospitalization. Psychiatric history: Previous psychiatric diagnoses of schizophrenia as per chart, hospitalized in [place] in July 2017, patient recent medication regimen as noted in facilities documentation include risperidone 2 mg once daily , ferrous sulfate 325 mg once daily, quetiapine 400 mg twice daily. Past medical history: Hypertension Allergies: NKDA as per chart Substance use history: Unknown history patient refuses to participate in interview. UDS at admission negative Social history: Domiciled at [facility], single, unemployed, supported by [facility] Tobacco Use In Past 30 Days: 4 or Less Cigarettes/Day Alcohol Use: Never Results Blood Pressure 110 / 65 Vital Signs Date Time Temp Pulse Resp B/P (MAP) Pulse Ox O2 Delivery O2 Flow Rate FiO2 02/01/18 05:42 98.2 88 16 110/65 (80) 100 Laboratory Results Test 01/29/18 07:03 Cholesterol Level 96 MG/DL (120-200) HDL Cholesterol 48.6 MG/DL (40.0-60.0) Hemoglobin A1c 5.9 % (4.3-6.0) LDL Cholesterol 33 MG/DL (0-99) Triglycerides Level 72 MG/DL (42-150) Imaging Last Impressions Chest X-Ray 01/26/182034 Signed Impressions: CONCLUSION: Minimal subsegmental airspace disease right lung base. Differential diagnosis i ncludes subsegmental atelectasis or mild bronchopneumonia. No effusion. Medications Approp Antipsych med options 1 - Minimum of three failed multiple trials of monotherapy. 2 - Documented plan to taper to monotherapy due to previous use of multiple meds OR cross-taper in progress at D/C. 3 - Documentation of augmentation of Clozapine. 4 - Justification other than those listed in allowable values 1-3, document here : Discharge Pt Condition on Discharge: Fair Discharge Disposition: Discharge Home Discharge Instructions Diet Instructions: As Tolerated, No Restrictions Activities you can perform: Regular-No Restrictions Scheduled Appointment: Braydon Huang Mental Status Examination Appearance: Appropriate, Dirty, Disheveled, Malodorous Consciousness: Alert Orientation: Person Motor Activity: Normal gait Speech: Other (Selectively mute) Language: Adequate Fund of Knowledge: Adequate Attention and Concentration: Easily Distracted Memory: Unremarkable Mood: Irritable Affect: Flat Thought Process & Associations: Loose associations Thought Content: Bizarre thinking, Preoccupations Hallucination Type: None Delusion Type: Paranoid Suicidal Ideation: No Suicidal Plan: No Suicidal Intention: No Homicidal Ideation: No Homicidal Plan: No Homicidal Intention: No Insight: Poor Judgment: Poor Discharge/Advance Care Plan Health Problems: (1) Schizophrenia Goals to promote your health * To prevent worsening of your condition and complications * To maintain your health at the optimal level Directions to meet your goals Take your medications as prescribed Follow your dietary instruction Follow activity as directed Keep your appointments as scheduled Take your immunizations and boosters as scheduled If your symptoms worsen call your PCP, if no PCP go to Urgent Care Center or Emergency Room For 14/03 questions related to your inpatient stay or results of tests pending at discharge, please contact Dr. Sina Ferrara at Smoking is Dangerous to Your Health. Avoid second hand smoking Sina Ferrara MD Feb 01, 2018 14:24
== END 2018-02-01 16:00 | DRG 885 ==
LOC: NEPJ 20:08 → NEDA 01-27 10:13 → H270 01-27 11:30
PROVIDERS: ADMIT Psychiatry & Neurology Psychiatry; ATTEND Psychiatry & Neurology Psychiatry
DX: F20.9 Schizophrenia, unspecified (principal); J18.0 Bronchopneumonia, unspecified organism; E11.9 Type 2 diabetes mellitus without complications; Z91.14 Patient's other noncompliance with medication regimen; B19.20 Unspecified viral hepatitis C without hepatic coma; K59.00 Constipation, unspecified; I10 Essential (primary) hypertension; L73.2 Hidradenitis suppurativa; M85.80 Other specified disorders of bone density and structure, unspecified site; F94.0 Selective mutism; Z79.899 Other long term (current) drug therapy; Z72.0 Tobacco use
CPT/HCPCS: 71046; 80048; 80053; 80061; 80307; 83036; 84439; 84443; 85025; 96372; J1630; J2060

== ENCOUNTER 2018-05-12 15:27 | Inpatient (IN) ==
--- NOTE | 2018-05-12 16:44 | ED ---
HPI General Chief Complaint: Psychiatric Symptoms Stated Complaint: Exparte/VCSO Time Seen by Provider: 05/12/18 16:03 Source: other (EXPARTE report) Mode of arrival: ambulatory Limitations: no limitations History of Present Illness HPI Narrative: 53-year-old male presents to the emergency department under EXPARTE. According to the report the patient refused to talk to anyone and when people try to help him he gets violent. He lives in an assisted living facility. On my evaluation the patient will not speak to me, therefore HPI is limited. Related Data Home Medications Medication Instructions Recorded Confirmed lisinopril 10 mg PO DAILY 05/12/18 05/12/18 polyethylene glycol 3350 17 g PO DAILY 05/12/18 05/12/18 quetiapine 800 mg PO HS 05/12/18 05/12/18 risperidone 2 mg PO BID 05/12/18 05/12/18 Allergies Allergy/AdvReac Type Severity Reaction Status Date / Time No Known Allergies Allergy Unverified 08/18/17 18:25 Review of Systems ROS Unobtainable ROS Unobtainable: other PMFSH Social History Social History Substance History: Unable to Obtain Smoking Status: Unknown if ever smoked How Often Do You Have a Drink Containing Alcohol: Unable to Obtain Recent Travel in [facility] within the Last 8 Weeks: No Recent Out of Country Travel within the Last 8 Weeks: No Exam Narrative Exam Narrative: GENERAL: Well-nourished, well-developed thin, black male patient , in no acute distress SKIN: Warm and dry. HEAD: Atraumatic. Normocephalic. EYES: Pupils equal and round. No scleral icterus. No injection or drainage. ENT: Mucosa pink and moist. Airway patent. NECK: Trachea midline. CARDIOVASCULAR: Regular rate. RESPIRATORY: No accessory muscle use. GASTROINTESTINAL: Flat. MUSCULOSKELETAL: No obvious deformities. No clubbing. No cyanosis. No edema. NEUROLOGICAL: Awake and alert. No obvious cranial nerve deficits. Motor grossly within normal limits. Not speaking. PSYCHIATRIC: Not speaking. No obvious delusional thought processes. No hallucinations. Course Initial Documented Vital Signs Temperature 98.0 F 05/12/18 15:39 Pulse Rate 86 05/12/18 15:39 Respiratory Rate 16 05/12/18 15:39 Blood Pressure 144/95 H 05/12/18 15:39 Pulse Oximetry 98 09/21/18 15:39 Last Documented Vital Signs Temperature 98.0 F 05/12/18 15:39 Pulse Rate 86 05/12/18 15:39 Respiratory Rate 16 05/12/18 15:39 Blood Pressure 144/95 H 05/12/18 15:39 Pulse Oximetry 98 05/12/18 15:39 Medical Decision Making MDM Narrative Medical decision making narrative: Patient presents under a EXPARTE. Physical examination and vital signs are essentially unremarkable. Patient has no medical complaints to report. Psych screen has been ordered. If the laboratory results are unremarkable, the patient will be medically cleared for psychiatric evaluation and disposition. Patient has refused all lab work. With no obvious medical need, he is medically cleared Medical Screen Exam Complete: Yes Emergency Medical Condition: Yes Differential Diagnosis Differential Diagnosis: Adjustment disorder, violent behavior, aggression, medical clearance for psychiatric evaluation Discharge Plan Discharge Disposition Patient Disposition: 30 Still Patient Discharge Condition Condition: Stable Physicians Team ED Provider: Nav Lomeli ED Midlevel Provider: Danielle Sanchez Primary Care Provider: UNKNOWN, Rxs /Orders / Referrals /Forms Prescriptions: No Action polyethylene glycol 3350 17 gram Powder In Packet 17 g PO DAILY RF: 0 lisinopril 10 mg Tablet 10 mg PO DAILY RF: 0 risperidone 2 mg Tablet 2 mg PO BID RF: 0 quetiapine 400 mg Tablet 800 mg PO HS RF: 0 Status ED Status: Medically Cleared
--- NOTE | 2018-05-13 10:36 | ED ---
HPI - Psych - General Source: old records reviewed, other (EXPARTE report) Mode of arrival: ambulatory Limitations: other (Mental staus) - History of Present Illness MD complaint: other Onset (ago): day(s) Duration: constant History of same: Yes Relieving factors: none Exacerbating factors: other Context: not taking psychiatric medications Associated psychiatric symptoms: other (Aggressive) Associated symptoms: other ( and selectively mute) Treatments prior to arrival: none If self harm: other (Unable to assess) - General Chief Complaint: Psychiatric Symptoms Stated Complaint: Exparte/VCSO Time Seen by Provider: 05/13/18 10:20 - History of Present Illness HPI Narrative: History of Present Illness HPI Narrative: 53-year-old -Martiniquais male, lives in [facility], history of schizophrenia presents to the emergency department under EXPARTE. According to the report the patient refused to talk to anyone, has been refusing his medication, refusing to eat, becomes aggressive when people try to help him. Patient arrived in J pod and he refused to cooperate with evaluation. Refused to cooperate with lab work. He remained isolative and withdrawn. On approach. Internally stimulated. He was observed in J pod overnight with no changes in his presentation. This morning the patient initially refuses to answer any questions. I attempted to explain to him the importance of allowing us to obtain blood work , he then threatens senior technical writer " You want to over a little blood" He becomes threatening towards senior technical writer and states " I can take your glasses off" and begins to move towards senior technical writer in threatening manner. Patient is placed in seclusion . Medications are ordered at this time. No further clinical information is obtained at this time. EMR is reviewed. Patient has 2 previous admissions to our inpatient psychiatric unit for similar presentation. (Yessi Valdes) - Related Data Home Medications Medication Instructions Recorded Confirmed lisinopril 10 mg PO DAILY 05/12/18 05/12/18 polyethylene glycol 3350 17 g PO DAILY 05/12/18 05/12/18 quetiapine 800 mg PO HS 05/12/18 05/12/18 risperidone 2 mg PO BID 05/12/18 05/12/18 Allergies Allergy/AdvReac Type Severity Reaction Status Date / Time No Known Allergies Allergy Unverified 08/18/17 18:25 PMF - History History Provided By: Law Enforcement - Social History I have reviewed the patient's Social History: No - Tobacco History Smoking Status: Unknown if ever smoked - Alcohol History How Often Do You Have a Drink Containing Alcohol: Unable to Obtain - Substance Use History Substance History: Unable to Obtain - Travel History Recent Travel in the USA Within the Last 8 Weeks: No Recent Travel Out of the Country Within the Last 8 Weeks: No - Immunization History Tetanus Immunization: Unable to Assess Hx Influenza Vaccine This Season: Unable to Assess Psychiatric History - Psychiatric History Psychiatric Treatment History: History of Psychiatric Treatment, History of Hospitalization in a Psychiatric Facility History of Inpatient Treatment: Yes Firearms in Home: No - Psychiatric History From medical records patient has had 2 previous admissions to our inpatient psychiatric unit. (Yessi Valdes) Physical Exam - General Limitations: no limitations Mental Status Examination Consciousness: Alert Motor Activity: Normal gait Speech: Other (Patient is selectively mute) Language: Other (Unable to evaluate) Attention and Concentration: Other (Unable to evaluate) Mood: Angry, Other (Threatening and agitated) Affect: Irritable Thought Process & Associations: Other (Unable to assess) Thought Content: Other (Appears internally preoccupied) Hallucination Type: Other (Unable to assess) Delusion Type: Other (Unable to assess) Insight: Poor Judgment: Poor Initial Documented Vital Signs Temperature 98.0 F 05/12/18 15:39 Pulse Rate 86 05/12/18 15:39 Respiratory Rate 16 05/12/18 15:39 Blood Pressure 144/95 H 05/12/18 15:39 Pulse Oximetry 98 05/12/18 15:39 Last Documented Vital Signs Temperature 98 F 05/13/18 14:23 Pulse Rate 77 05/13/18 14:23 Respiratory Rate 20 05/13/18 14:23 Blood Pressure 125/92 H 05/13/18 14:23 Pulse Oximetry 98 05/12/18 15:39 MDM - Psych - Diagnosis (1) Schizophrenia Status: Acute - Lab Data Result diagrams: 05/13/18 11:40 05/13/18 11:40 - [facility] Narrative Medical decision making narrative: At the time of this evaluation the patient continues to remain selectively mute. He has had episodes of becoming agitated and threatening toward staff. He verbalized at one point that I would over trying to obtain his lab work. Patient required medication due to potential of harm toward staff. The patient is being admitted to inpatient psychiatry for further observation, for safety, stabilization and for medication adjustment. (Yessi Valdes) - Lab Data Lab Results 05/13/18 05/13/18 05/13/18 Range/Units 11:40 11:40 11:40 WBC 5.2 (4.0-11.0) th/mm3 RBC 4.64 (4.50-5.90) mil/mm3 Hgb 14.8 (13.0-17.0) gm/dL Hct 44.6 (39.0-51.0) % MCV 96.2 (80.0-100.0) fL MCH 31.9 (27.0-34.0) pg MCHC 33.2 (32.0-36.0) % RDW 13.9 (11.6-17.2) % Plt Count 217 (150-450) th/mm3 MPV 9.7 (7.0-11.0) fL Neut % (Auto) 55.7 (16.0-70.0) % Lymph % (Auto) 30.2 (9.0-44.0) % Greene % (Auto) 8.6 H (0.0-8.0) % Eos % (Auto) 4.5 H (0.0-4.0) % Baso % (Auto) 1.0 (0.0-2.0) % Neut # (Auto) 2.9 (1.8-7.7) th/mm3 Lymph # (Auto) 1.6 (1.0-4.8) th/mm3 Greene # (Auto) 0.5 (0.0-0.9) th/mm3 Eos # (Auto) 0.2 (0.0-0.4) th/mm3 Baso # (Auto) 0.1 (0.0-0.2) th/mm3 WBC Differential . Differential Comment Auto diff final Sodium 139 (136-145) meq/L Potassium 3.8 (3.5-5.1) meq/L Chloride 105 (98-107) meq/L Carbon Dioxide 25.0 (21.0-32.0) meq/L Anion Gap 9 (5-15) meq/L BUN 24 H (7-18) mg/dL Creatinine 0.95 (0.60-1.30) mg/dL Estimated GFR 82 L (>89) mL/min Random Glucose 106 (74-106) mg/dL Calcium 8.9 (8.5-10.1) mg/dL Total Bilirubin 0.6 (0.2-1.0) mg/dL AST 27 (15-37) U/L ALT 15 (12-78) U/L Alkaline Phosphatase 83 (45-117) U/L Total Protein 9.3 H (6.4-8.2) g/dL Albumin 3.1 L (3.4-5.0) g/dL TSH 0.215 L (0.358-3.740) uIU/mL Salicylates 5.0 (2.8-20.0) mg/dL Acetaminophen Less than 2.0 L (10.0-30.0) mcg/mL Serum Alcohol Less than 3 (0-5) mg/dL
[2018-05-13] MEDS ORDERED: Aluminum/Magnesium/Simethacone Susp 30 ML UDC PO PRN (11:41)
[2018-05-13] MEDS ORDERED: Haloperidol Inj 5 MG/ML Ampul IM PRN (11:41)
[2018-05-13 12:39] LABS: Baso # (Auto) 0.1 th/mm3 (0.0-0.2); Eos # (Auto) 0.2 th/mm3 (0.0-0.4); Eos % (Auto) 4.5 % (0.0-4.0); Hematocrit 44.6 % (39.0-51.0); Hemoglobin 14.8 gm/dL (13.0-17.0); Lymph # (Auto) 1.6 th/mm3 (1.0-4.8); Lymph % (Auto) 30.2 % (9.0-44.0); Mean Corpuscular HGB Conc 33.2 % (32.0-36.0); Mean Corpuscular Hemoglobin 31.9 pg (27.0-34.0); Mean Corpuscular Volume 96.2 fL (80.0-100.0); Mean Platelet Volume 9.7 fL (7.0-11.0); Mono # (Auto) 0.5 th/mm3 (0.0-0.9); Mono % (Auto) 8.6 % (0.0-8.0); Neut # (Auto) 2.9 th/mm3 (1.8-7.7); Neut % (Auto) 55.7 % (16.0-70.0); Platelet Count 217 th/mm3 (150-450); Red Blood Count 4.64 mil/mm3 (4.50-5.90); Red Cell Distribution Width 13.9 % (11.6-17.2); White Blood Count 5.2 th/mm3 (4.0-11.0)
[2018-05-13 13:01] LABS: Anion Gap 9 meq/L (5-15)
[2018-05-13 13:20] LABS: Alanine Aminotransferase 15 U/L (12-78); Albumin 3.1 g/dL (3.4-5.0); Alkaline Phosphatase 83 U/L (45-117); Aspartate Aminotransferase 27 U/L (15-37); Blood Urea Nitrogen 24 mg/dL (7-18); Calcium 8.9 mg/dL (8.5-10.1); Chloride 105 meq/L (98-107); Glomerular Filtration Rate 82 mL/min (>89); Glucose,Random 106 mg/dL (74-106); Potassium 3.8 meq/L (3.5-5.1); Sodium 139 meq/L (136-145); Thyroid Stimulating Hormone 0.215 uIU/mL (0.358-3.740); Total Protein 9.3 g/dL (6.4-8.2)
[2018-05-13] MEDS: Senna/Docusate Sodium 8.6/50 MG Tablet PO SCH (21:26)
[2018-05-14] MEDS: Senna/Docusate Sodium 8.6/50 MG Tablet PO SCH ×2 (09:00→20:55)
[2018-05-14] MEDS: Lisinopril 10 MG Tablet PO SCH (10:13)
--- NOTE | 2018-05-14 15:20 | P.HPPSY ---
Provisional Diagnosis Admission Date: May 13, 2018 12:06 [place] I.: Schizophrenia, unspecified Competence Certification of Person's Competence To Provide Express and Informed Consent I have personally examined Fausto Narvaez, a person being served at [facility] on, May 14, 2018 1505. Express and informed consent means consent voluntarily given in writing, by a competent person, after sufficient explanation and disclosure of the subject matter involved to enable the person to make a knowing and willful decision without any element of force, fraud, deceit, duress, or other form of constraint or coercion. This person is 18 years of age or older, is not now known to be incompetent to consent to treatment with a guardian advocate, and does not have a health care surrogate or proxy currently making medical treatment decisions. I have found this person to be one of the following: [] Competent to provide express and informed consent, as defined above, for voluntary admission to this facility and is competent to provide express and informed consent for treatment. He/she has the consistent capacity to make well reasoned, willful, and knowing decisions concerning his or her medical or mental health treatment. The person fully and consistently understands the purpose of the admission for examination/placement and is fully capable of personally exercising all rights assured under [place] [X] Incompetent to provide express and informed consent to voluntary admission, and this is incompetent to provide express and informed consent to treatment. The person must be transferred to involuntary status and a petition for a guardian advocate filed with the Circuit Court. [] Refusing to provide express and informed consent to voluntary admission but is competent to provide express and informed consent for treatment. The person must be discharged or transferred to involuntary status. Form shall be completed within 24 hours of a person's arrival at the receiving facility and filed in the clinical record of each person: 1. Admitted on a voluntary basis 2. Permitted to provide express and informed consent to his/her own treatment 3. Allowed to transfer from involuntary to voluntary status 4. Prior to permitting a person to consent to his or her own treatment after having been previously found incompetent to consent to treatment. History of Present Illness Capacity: Lacks capacity Chief Complaint: "What do you want now?" History of Present Illness: Pt is a 53 YOAAM with a hx of schizophrenia who was admitted to [facility] under an ex- parte alleging that pt has been non-compliant with medications and [facility]. Pt was aggressive and threatening in ED and received ETO of haldol for safety. workforce staffing advisor report that pt has been paranoid and guarded on unit. He appears to be actively responding to internal stimuli during interview attempts. Pt is quite paranoid and refuses to engage interview. He is disorganized in behaviors and approaches MD twice for interview but refuses to answer any questions or provide history. He is disheveled with poor hygiene. - Inpatient Certification I certify that the inpatient services were ordered in accordance with Medicare regulations governing the order. This includes certification that hospital inpatient services are reasonable and necessary and in the case of services not specified as inpatient-only under 42 CFR 419.22(n), that they are appropriately provided as inpatient services in accordance to with the 2-midnight benchmark under 43 CFR 412.3(e) I certify that inpatient psychiatric hospital services are medically necessary. Evaluation and treatment and/or diagnostic testing are expected to improve the patient's condition. The patient needs on a daily basis, active treatment furnished directly by or requiring the supervision of inpatient psychiatric facility personnel. Estimated Total Length of Stay (Days): 8 Plans for Post Hospital Care: shelter Review of Systems Psychiatric: Reports behavioral changes PMFSH - History History Provided By: Medical Record, Law Enforcement - Medical / Surgical Hx Neg / Unobtainable Medical Problems Denied: Unable to Obtain Surgical History: Unable to Obtain - Medical History Medical History: Medical History (Last Reviewed 05/14/18 @ 15:12 by Alanna Das MD) Constipation Diabetes mellitus Hepatitis C Hypertension Osteopenia - Social History I have reviewed the patient's Social History: Yes - Tobacco History Smoking Status: Refused to answer - Alcohol History How Often Do You Have a Drink Containing Alcohol: Unable to Obtain - Substance Use History Substance History: Unable to Obtain - Travel History Recent Travel in the [place] Within the Last 8 Weeks: No Recent Travel Out of the Country Within the Last 8 Weeks: No - Immunization History Tetanus Immunization: Unable to Assess Hx Influenza Vaccine This Season: Unable to Assess Quality Measures - Psychiatric History Psychological trauma history: unable to obtain Violence risk to others in the last 6 months: recent threats to harm others. aggression at [facility] Violence risk to self in the last 6 months: unable to obtain - Substance Abuse History Drug or alcohol use in the past 12 months: unable to obtain - Patient Strengths Patient's strengths (minimum of 2): housing, access to care Medications and Allergies Active Medications: Active Medications Al Hydrox/Mg Hydrox/Simethicone (Mag-Al Plus Susp Liq) 30 ml PO Q6H PRN PRN Reason: DYSPEPSIA Al Hydroxide/Mg Hydroxide (Milk Of Magnesia Liq) 30 ml PO Q12H PRN PRN Reason: Mild Constipation Haloperidol Lactate (Haldol Inj) 5 mg IM Q6H PRN PRN Reason: SEVERE AGITATION Lisinopril (Prinivil) 10 mg PO DAILY [facility] Last Admin: 05/14/18 10:13 Dose: Not Given Nicotine (Habitrol 21 Mg Patch.24 Hr) 1 patch T-DERMAL DAILY [facility] Last Admin: 05/14/18 14:55 Dose: Not Given Patch Removal (Remove Old Patch) 1 each T-DERMAL DAILY [facility] Senna/Docusate Sodium (Mena-Colace) 1 tab PO BID [facility] Last Admin: 05/14/18 09:00 Dose: Not Given Allergies Allergy/AdvReac Type Severity Reaction Status Date / Time No Known Allergies Allergy Unverified 08/18/17 18:25 Home Medications Medication Instructions Recorded Confirmed Type lisinopril 10 mg PO DAILY 05/12/18 05/12/18 History polyethylene glycol 3350 17 g PO DAILY 05/12/18 05/12/18 History quetiapine 800 mg PO HS 05/12/18 05/12/18 History risperidone 2 mg PO BID 05/12/18 05/12/18 History Results - Labs CBC & Chem 7: 05/13/18 11:40 05/13/18 11:40 Exam Vital signs: Intake & Output 05/13/18 05/14/18 05/14/18 18:59 06:59 18:59 Weight 83.9 kg Other: Weight On Admission 83.9 kg Mental Status Examination Appearance: Disheveled Consciousness: Alert, Vigilant Orientation: Person, Place Motor Activity: Normal gait Speech: Other (sparse, selectively mute at times) Language: Adequate, Other (Unable to evaluate) Fund of Knowledge: Inadequate Attention and Concentration: Easily distracted Memory: Impaired (unable to assess due to lack of cooperation) Mood: Irritable, Other (easily agitated) Affect: Irritable Thought Process & Associations: Disorganized Thought Content: Other (Appears internally preoccupied) Hallucination Type: Other (appers to be responding to auditory hallucinatios) Delusion Type: Paranoid Suicidal Ideation: No (none expressed, pt uncooperative) Homicidal Ideation: Yes (none voiced but recently threatened staff) Insight: Poor Judgment: Poor Assessment and Plan - Assessment (1) Schizophrenia Code(s): F20.9 - Schizophrenia, unspecified Status: Acute - Plan Plan: Estimated LOS: [] days Will start involuntary petition and request 2nd opinion. Due to disorganization pt is not competent at this time to consent to treatment. Will request GA and HCS. Justification for Continued Inpatient Stay: impairemnts in safety and reality testing and self care Request Healthcare Surrogate/Guardian Advocate?: Yes (1) Schizophrenia Qualifiers: Schizophrenia type: unspecified Qualified Code(s): F20.9 - Schizophrenia, unspecified
[2018-05-15] MEDS: Senna/Docusate Sodium 8.6/50 MG Tablet PO SCH ×2 (08:41→20:17)
[2018-05-15] MEDS: Lisinopril 10 MG Tablet PO SCH (08:41)
--- NOTE | 2018-05-15 10:14 | P.CONPSY ---
Provisional Diagnosis Admission Date: May 13, 2018 12:06 [place] I.: 1. Schizophrenia, unspecified type, acute exacerbation [place] II.: Deferred History of Present Illness Service: Psychiatry Consult date: 05/15/18 Requesting Physician: Alanna Das Reason for Consult: Second opinion for involuntary psychiatric hospitalization Primary Care Provider: UNKNOWN History of Present Illness: From Dr. Das's H&P: Pt is a 53 YOAAM with a hx of schizophrenia who was admitted to [facility] under an ex- parte alleging that pt has been non-compliant with medications and has been aggressive at [facility]. Pt was aggressive and threatening in ED and received ETO of haldol for safety. staff anesthesiologist report that pt has been paranoid and guarded on unit. He appears to be actively responding to internal stimuli during interview attempts. Pt is quite paranoid and refuses to engage interview. He is disorganized in behaviors and approaches MD twice for interview but refuses to answer any questions or provide history. He is disheveled with poor hygiene. On my examination today, 05/15: Patient seen and examined with counselor and nurse. Chart reviewed. Patient has been eating per nutritional charting. I find the patient in his room, looking out furtively from underneath his blanket. When he sees us coming, he pulls the blanket over his head. When I try to engage with him, he abruptly arises and stands with his back pressed against the wall. He appears quite disheveled. He appears internally stimulated. He does not exhibit any posturing, although he does engage briefly in head rubbing behavior that may represent a stereotypy. He is mute, and I cannot get him to follow even simple commands. He is quite guarded and will not permit physical exam. Psychiatric interview is quite limited because of patient's mental status. I see no next of kin or relation on file who might serve as HCS. I have instructed the counselor to try to identify someone to fill this role. I note we previously had to get a RODRI GA from the [place] [address]. Review of Systems unobtainable due to mental condition PMFSH - History History Provided By: Medical Record, Law Enforcement - Medical / Surgical Hx Neg / Unobtainable Medical Problems Denied: Unable to Obtain - Medical History Medical History: Medical History (Last Reviewed 05/14/18 @ 15:12 by Alanna Dsa MD) Constipation Diabetes mellitus Hepatitis C Hypertension Osteopenia - Tobacco History Smoking Status: Refused to answer - Alcohol History How Often Do You Have a Drink Containing Alcohol: Unable to Obtain - Substance Use History Substance History: Unable to Obtain - Travel History Recent Travel in the [place] Within the Last 8 Weeks: No Recent Travel Out of the Country Within the Last 8 Weeks: No - Immunization History Tetanus Immunization: Unable to Assess Hx Influenza Vaccine This Season: Unable to Assess Medications and Allergies Active Medications: Active Medications Al Hydrox/Mg Hydrox/Simethicone (Mag-Al Plus Susp Liq) 30 ml PO Q6H PRN PRN Reason: DYSPEPSIA Al Hydroxide/Mg Hydroxide (Milk Of Magnesia Liq) 30 ml PO Q12H PRN PRN Reason: Mild Constipation Haloperidol Lactate (Haldol Inj) 5 mg IM Q6H PRN PRN Reason: SEVERE AGITATION Lisinopril (Prinivil) 10 mg PO DAILY [facility] Last Admin: 05/15/18 08:41 Dose: Not Given Nicotine (Habitrol 21 Mg Patch.24 Hr) 1 patch T-DERMAL DAILY [facility] Last Admin: 05/15/18 08:41 Dose: Not Given Patch Removal (Remove Old Patch) 1 each T-DERMAL DAILY [facility] Last Admin: 05/15/18 08:41 Dose: Not Given Senna/Docusate Sodium (Mena-Colace) 1 tab PO BID [facility] Last Admin: 05/15/18 08:41 Dose: Not Given Allergies Allergy/AdvReac Type Severity Reaction Status Date / Time No Known Allergies Allergy Unverified 08/18/17 18:25 Home Medications Medication Instructions Recorded Confirmed Type lisinopril 10 mg PO DAILY 05/12/18 05/12/18 History polyethylene glycol 3350 17 g PO DAILY 05/12/18 05/12/18 History quetiapine 800 mg PO HS 05/12/18 05/12/18 History risperidone 2 mg PO BID 05/12/18 05/12/18 History Exam Narrative: Physical examination completed by ED provider. On my examination today, the patient refuses physical exam. He does not appear to be in any acute physical distress. Besides possible stereotypy noted above, no other motor abnormalities noted. Labs and vital signs reviewed: Laboratory Tests 05/13/18 05/13/18 05/13/18 11:40 11:40 11:40 WBC 5.2 Hgb 14.8 Plt Count 217 Sodium 139 Potassium 3.8 Chloride 105 Carbon Dioxide 25.0 BUN 24 H Creatinine 0.95 Estimated GFR 82 L AST 27 ALT 15 Alkaline Phosphatase 83 TSH 0.215 L Salicylates 5.0 Acetaminophen Less than 2.0 L Serum Alcohol Less than 3 Mental Status Examination Appearance: Disheveled Consciousness: Alert, Vigilant Orientation: Person Motor Activity: Normal gait Speech: Other (Mute) Attention and Concentration: Inadequate Affect: Irritable, Other (Dysphoric) Hallucination Type: Other (Internally stimulated) Delusion Type: Other (Quite guarded, suspect underlying paranoia) Insight: Poor Judgment: Poor Mental Status Exam Remarks: Mental status examination is limited because the patient is mute. He does not verbalize any suicidal or violent threats on my evaluation. Assessment and Plan - Assessment (1) Schizophrenia Code(s): F20.9 - Schizophrenia, unspecified Status: Acute - Plan Plan: Given the circumstances of the patient's presentation here and his presentation on my examination today I concur with Dr. Das that the patient meets criteria for involuntary psychiatric hospitalization under the [place]. Main concern here would be for self-care deficit in the setting of decompensated psychosis although there may also be some potential risk to self/others. I have completed the second opinion paperwork. Psychotropic medications are on hold for lack of anyone to provide consent. Check a free T4. Continue to monitor on the high acuity unit. Continue other medications and care as ordered. Justification for Continued Inpatient Stay: Impairment in reality construction. High risk for decompensation in less restrictive environment. Discharge Planning: Pending psychiatric stabilization. Request Healthcare Surrogate/Guardian Advocate?: Yes (1) Schizophrenia Qualifiers: Schizophrenia type: unspecified Qualified Code(s): F20.9 - Schizophrenia, unspecified
[2018-05-16] MEDS: Senna/Docusate Sodium 8.6/50 MG Tablet PO SCH (08:34)
[2018-05-16] MEDS: Lisinopril 10 MG Tablet PO SCH (09:22)
--- NOTE | 2018-05-16 10:06 | P.TTN ---
- Patient Problems Problems: 1. Discharge planning 2. Medication compliance 3. Knowledge deficit 4. Lack of coping skills - Progress Toward Goals Provider Present: Dr. Aidee Jeter (Dr. Jeter will start patient on anti- cardiac medications) Psychiatric Counselors Present: Ramon Abreu Jr., RENÉ (Patient is hypoverbal unable or unwilling to participate) Group Spec/RT/OT/PARISH Present: JEM Chavis (Patient is seclusive to his room and does not attend group) - Documentation Teaching Recipient: Patient
--- NOTE | 2018-05-16 11:49 | P.PNPSY ---
Subjective Chief Complaint: Psychosis Remarks: Patient seen and examined with nurse. Chart reviewed. Case discussed with nursing staff. Patient noted to be seclusive to room although he is coming out and eating meals. Case discussed in treatment team. We still have no one to act as healthcare surrogate for the patient. On my examination today, the patient remains extremely guarded. He is huddled in his room with his covers over his head. He is not completely mute today and can be heard muttering to himself, but he does not answer any of the questions I put to him. Psychiatric interview is limited as the patient remains uncooperative, I suspect due to his psychiatric illness. He is refusing his antihypertensive as well as vital signs today. Labs reviewed. No new labs. Review of Systems unobtainable due to mental condition Mental Status Examination Appearance: Disheveled Consciousness: Alert, Vigilant Orientation: Person Motor Activity: Other (No motor abnormalities noted) Speech: Other (Selectively mute) Affect: Flat Hallucination Type: Other (Remains internally stimulated) Delusion Type: Other (Remains quite guarded) Insight: Poor Judgment: Poor Mental Status Exam Remarks: MSE limited as patient is uncooperative with evaluation Assessment and Plan - Assessment (1) Schizophrenia Code(s): F20.9 - Schizophrenia, unspecified Status: Acute - Plan Plan: Psychotropic medications remain on hold for lack of anyone to provide consent. Patient remains severely decompensated, I suspect from underlying psychotic illness and would benefit from psychotropic medication management. He is taking meals though. Continue to monitor on the high acuity unit. Continue other medications and care as ordered. Justification for Continued Inpatient Stay: Risk for decompensation in less restrictive environment. Suspected impairment in reality construction. Discharge Planning: Pending psychiatric stabilization Request Healthcare Surrogate/Guardian Advocate?: Yes (1) Schizophrenia Qualifiers: Schizophrenia type: unspecified Qualified Code(s): F20.9 - Schizophrenia, unspecified
[2018-05-17] MEDS: Lisinopril 10 MG Tablet PO SCH (10:41)
--- NOTE | 2018-05-17 13:14 | P.PNPSY ---
Subjective Chief Complaint: Psychosis Remarks: Patient seen and examined with nurse. Chart reviewed. Case discussed with nursing staff. Patient is coming out of room and eating meals but otherwise is seclusive to room and will not interact with staff. His hygiene is quite poor, and I do note that the patient has urinated on some sheets in the corner of his room. We still have no one to act as HCS. On my exam, patient is unchanged today. He is laying in his bed. Eye contact is poor. Hygiene is poor. He will not engage with this interviewer. He does not exhibit posturing or stereotypies. He appears to be quite guarded. No physical complaints. No signs of physical distress. Refusing vital signs. I have asked the nurse to try to obtain a set of VS from patient today. Labs reviewed. Patient is refusing laboratories. Review of Systems unobtainable due to mental condition Mental Status Examination Appearance: Disheveled Consciousness: Alert, Vigilant Orientation: Person Motor Activity: Other (No abnormal motor movements noted) Speech: Other (Mute) Affect: Flat Hallucination Type: Other (Appears internally preoccupied) Delusion Type: Other (Quite guarded. Suspect underlying paranoia) Insight: Poor Judgment: Poor Mental Status Exam Remarks: MSE limited because of uncooperativeness/mutism. Assessment and Plan - Assessment (1) Schizophrenia Code(s): F20.9 - Schizophrenia, unspecified Status: Acute - Plan Plan: Psychotropic medications remain on hold for lack of anyone to provide consent. Patient's case will be assented to [place] tomorrow at which time a GA from [facility] will hopefully be appointed and we may begin pharmacotherapy for patient's illness and also obtain labwork over patient's objection with consent of GA. continue to monitor on inpatient unit in the meantime. Continue other care as ordered. Justification for Continued Inpatient Stay: Impairment in self-care. Impairment in reality construction suspected. High risk for decompensation in less restrictive environment. Discharge Planning: [place] tomorrow. Request Healthcare Surrogate/Guardian Advocate?: Yes (1) Schizophrenia Qualifiers: Schizophrenia type: unspecified Qualified Code(s): F20.9 - Schizophrenia, unspecified
[2018-05-18] MEDS: Lisinopril 10 MG Tablet PO SCH (08:11)
--- NOTE | 2018-05-18 09:16 | P.PNPSY ---
Subjective Chief Complaint: Psychosis Remarks: Patient seen and examined with counselor. Chart reviewed. Case discussed with nursing staff who reports patient comes out and eats his meals but otherwise does not cooperate with any sort of care. He does not allow vitals and is refusing laboratories. He is also refusing his lisinopril. On my exam, the patient is laying in bed. He is uncovered but when we endeavored to engage with him, he pulls the covers over his head and refuses to speak. No evident physical distress. Patient refusing vital signs and laboratories. Review of Systems unobtainable due to mental condition Mental Status Examination Appearance: Disheveled Consciousness: Alert, Vigilant Orientation: Person Motor Activity: Other (No motoric abnormalities noted) Speech: Other (Remains mute) Affect: Flat Hallucination Type: Other (Appears internally stimulated) Insight: Poor Judgment: Poor Mental Status Exam Remarks: MSE limited as patient is mute Assessment and Plan - Assessment (1) Schizophrenia Code(s): F20.9 - Schizophrenia, unspecified Status: Acute - Plan Plan: Patient's case was presented to the [place] today, and the patient was retained on the unit by the automobile seat cover installer with Lisa Kocho from [facility] to serve as GA. I did try to reach Ms. Reza today to discuss initiation of medications, and I left a voicemail requesting a call back. Reviewing old notes, it appears that the patient did respond to and tolerated Risperdal well. Perhaps we could consider initiation of Sustenna. Continue to monitor on the high acuity unit. Continue other medications and care as ordered. Justification for Continued Inpatient Stay: Medication changes planned. Impairment in reality construction. High risk for decompensation in less restrictive environment. Discharge Planning: Pending psychiatric stabilization Request Healthcare Surrogate/Guardian Advocate?: Yes (1) Schizophrenia Qualifiers: Schizophrenia type: unspecified Qualified Code(s): F20.9 - Schizophrenia, unspecified
[2018-05-19] MEDS: Lisinopril 10 MG Tablet PO SCH (09:49)
--- NOTE | 2018-05-19 10:55 | P.PNPSY ---
Subjective Chief Complaint: Psychosis Remarks: Patient seen and examined with nurse. Chart reviewed. Case discussed with nursing staff who reports patient remains bizarre and psychotic. On my examination today, the patient is malodorous and disheveled. His eye contact is poor. He is awake and alert. He remains mute. I have endeavored repeatedly to engage him in discussion of his condition and its treatment, but he will not speak with this provider. No evident physical distress. I was able to reach patient's guardian advocate today. Lengthy discussion with GA regarding pharmacotherapeutic management of the patient's condition. GA provides consent for psychotropic medications as outlined below. GA also provides consent for temporary restraint if needed for labs, etc. Patient refused vital signs. Laboratory Results - last 48 hr 05/19/18 12:20 Sodium 136 Potassium 4.2 Chloride 101 Carbon Dioxide 29.8 Anion Gap 5 BUN 16 Creatinine 1.02 Estimated GFR 76 L Random Glucose 93 Calcium 8.8 Triglycerides 98 Cholesterol 122 LDL Cholesterol, Calc 46 HDL Cholesterol 56.6 Cholesterol/HDL Ratio 2.15 Free T4 0.96 Renal function stable. Free T4 within normal limits. EKG read as sinus rhythm with a QTC of 383 ms. Review of Systems All other systems reviewed negative except as stated in HPI Mental Status Examination Appearance: Disheveled Consciousness: Alert, Vigilant Orientation: Person Motor Activity: Other (No motoric abnormalities noted) Speech: Other (Again mute) Affect: Flat Delusion Type: Other (Suspect underlying paranoia) Insight: Poor Judgment: Poor Mental Status Exam Remarks: MSE limited as patient remains mute Assessment and Plan - Assessment (1) Schizophrenia Code(s): F20.9 - Schizophrenia, unspecified Status: Acute - Plan Plan: Given documented history of good tolerability of Risperdal, initiate Invega Sustenna 234 mg IM today with plans for booster dose after the weekend. We will offer temporary supplementation with oral Risperdal, although I do fear that the patient will refuse this. Atarax as needed for anxiety. Melatonin as needed for sleep. Cogentin as needed for EPS. Staff to assist with hygiene. Continue to monitor on inpatient unit. Continue other medications and care as ordered. Justification for Continued Inpatient Stay: Impairment in self-care. Suspected impairment in reality construction. High risk for decompensation in less restrictive environment. Discharge Planning: Pending psychiatric stabilization. Request Healthcare Surrogate/Guardian Advocate?: Yes (1) Schizophrenia Qualifiers: Schizophrenia type: unspecified Qualified Code(s): F20.9 - Schizophrenia, unspecified
[2018-05-19] MEDS ORDERED: Paliperidone Inj 234 MG/1.5 ML Syringe IM ONE (11:03)
[2018-05-19] MEDS ORDERED: Melatonin 5 MG Tablet PO PRN (11:04)
[2018-05-19] MEDS ORDERED: Benztropine Inj 2 MG/2 ML Ampul IM PRN (11:05)
[2018-05-19 13:01] LABS: Calcium 8.8 mg/dL (8.5-10.1); Carbon Dioxide 29.8 meq/L (21.0-32.0); Potassium 4.2 meq/L (3.5-5.1)
[2018-05-19 13:04] LABS: Chol/HDL Ratio 2.15 Ratio; Free T4 (Free Thyroxine) 0.96 ng/dL (0.76-1.46); HDL Cholesterol 56.6 mg/dL (40.0-60.0)
--- NOTE | 2018-05-19 16:28 | ECG ---
Date Performed: 05/19/2018 Time Performed: 13:28:44 PTAGE: 53 years EKG: Sinus rhythm ARM LEADS REVERSED ATYPICAL ECG Would repeat EKG PREVIOUS TRACING : 08/26/2017 11.17 DOCTOR: Raghavendra Vazquez Interpretating Date/Time 05/19/2018 16:26:01
[2018-05-19 17:22] LABS: Hemoglobin A1c 5.8 % (4.3-6.0)
[2018-05-19] MEDS: risperiDONE 1 MG ODT PO SCH (21:24)
[2018-05-20] MEDS: Lisinopril 10 MG Tablet PO SCH (08:09)
[2018-05-20] MEDS: risperiDONE 1 MG ODT PO SCH ×2 (08:09→20:42)
--- NOTE | 2018-05-20 17:12 | P.PNPSY ---
Subjective Chief Complaint: Psychosis Remarks: Reviewed electronic medical records and discussed case with staff. Follow-up was conducted in his room with jorden Bang present. Patient sitting on bed mute. His nurse Jimena reports that he has been paranoid looking over shoulder while taking medications but after the inVega injection yesterday he was compliant with his medications today. Mental Status Examination Appearance: Disheveled Consciousness: Alert, Vigilant Orientation: Person Motor Activity: Other (No motoric abnormalities noted) Speech: Other (Again mute) Language: Adequate, Other (Unable to evaluate) Fund of Knowledge: Inadequate Attention and Concentration: Inadequate Memory: Impaired (unable to assess due to lack of cooperation) Mood: Irritable, Other (easily agitated) Affect: Flat Thought Process & Associations: Disorganized Thought Content: Other (Appears internally preoccupied) Hallucination Type: Other (Appears internally stimulated) Delusion Type: Other (Suspect underlying paranoia) Suicidal Ideation: No (none expressed, pt uncooperative) Homicidal Ideation: Yes (none voiced but recently threatened staff) Insight: Poor Judgment: Poor Assessment and Plan - Assessment (1) Schizophrenia Code(s): F20.9 - Schizophrenia, unspecified Status: Acute - Plan Plan: Patient will be reevaluated Tuesday by the attending psychiatrist. Continue with current treatment plan. Justification for Continued Inpatient Stay: Moving this patient to a less restrictive environment would likely result in decompensation. Request Healthcare Surrogate/Guardian Advocate?: Yes (1) Schizophrenia Qualifiers: Schizophrenia type: unspecified Qualified Code(s): F20.9 - Schizophrenia, unspecified
[2018-05-21] MEDS: Lisinopril 10 MG Tablet PO SCH (08:48)
[2018-05-21] MEDS: risperiDONE 1 MG ODT PO SCH ×2 (08:48→20:42)
--- NOTE | 2018-05-21 15:10 | P.PNPSY ---
Subjective Chief Complaint: Psychosis Remarks: Reviewed electronic medical records and discussed case with staff. Follow-up was conducted in the patient's room with MAXIMILIANO Bowman present. Patient has his head underneath the mattress. He is mute and will not speak to the nursing staff or this provider. Nursing reports that he stays in his room and does come out for meals. He is cooperative and will follow directions. He is internally stimulated. Review of Systems All other systems reviewed negative except as stated in HPI Mental Status Examination Appearance: Disheveled Consciousness: Alert, Vigilant Orientation: Person Motor Activity: Other (No motoric abnormalities noted) Speech: Other (Again mute) Language: Adequate, Other (Unable to evaluate) Fund of Knowledge: Inadequate Attention and Concentration: Inadequate Memory: Impaired (unable to assess due to lack of cooperation) Mood: Irritable, Other (easily agitated) Affect: Flat Thought Process & Associations: Disorganized Thought Content: Other (Appears internally preoccupied) Hallucination Type: Other (Appears internally stimulated) Delusion Type: Other (Suspect underlying paranoia) Suicidal Ideation: No (none expressed, pt uncooperative) Homicidal Ideation: Yes (none voiced but recently threatened staff) Insight: Poor Judgment: Poor Assessment and Plan - Assessment (1) Schizophrenia Code(s): F20.9 - Schizophrenia, unspecified Status: Acute - Plan Plan: Patient will be reevaluated Tuesday by the attending psychiatrist. Continue with current treatment plan. Justification for Continued Inpatient Stay: Moving patient to a less restrictive environment may result in his decompensation. Request Healthcare Surrogate/Guardian Advocate?: Yes (1) Schizophrenia Qualifiers: Schizophrenia type: unspecified Qualified Code(s): F20.9 - Schizophrenia, unspecified
[2018-05-22] MEDS: risperiDONE 1 MG ODT PO SCH ×2 (08:27→20:16)
[2018-05-22] MEDS: Lisinopril 10 MG Tablet PO SCH (08:27)
--- NOTE | 2018-05-22 09:48 | P.PNPSY ---
Subjective Chief Complaint: Psychosis Remarks: Patient seen and examined with nurse. Chart reviewed. Case discussed with nursing staff. Patient remains minimally communicative. He continues to eat well. Case discussed with counselor who has obtained collateral regarding patient's baseline from his facility. Apparently, the patient does not converse much even at his psychiatric baseline, although he will engage in brief conversation at times. On my exam, the patient is mute. His hygiene does seem improved. He remains quite guarded and refuses physical exam. No evident side effects from medications. No overt parkinsonism. No evidence of physical distress. Vital Signs Temp Pulse Resp BP Pulse Ox 05/22/18 06:00 98.8 F 90 17 123/71 100 05/21/18 16:55 97.8 F 77 18 120/62 Intake and Output 05/22/18 05/22/18 05/22/18 06:59 14:59 22:59 Other: Weight 69.2 kg Labs reviewed. No new labs. Review of Systems unobtainable due to mental condition Mental Status Examination Appearance: Disheveled (Hygiene is improving) Consciousness: Alert, Vigilant Orientation: Person Motor Activity: Other (No motoric abnormalities noted) Speech: Other (Mute) Affect: Flat Delusion Type: Other (Continue to suspect underlying paranoia) Insight: Poor Judgment: Poor Mental Status Exam Remarks: MSE limited as patient remains mute Assessment and Plan - Assessment (1) Schizophrenia Code(s): F20.9 - Schizophrenia, unspecified Status: Acute - Plan Plan: Plan to administer booster dose of Invega Sustenna 156 mg IM tomorrow. I have ordered this. Continue oral Risperdal supplementation. Continue to monitor on the inpatient unit. Continue other medications and care as ordered. Justification for Continued Inpatient Stay: Medication changes planned. Impairment in self-care. High risk for decompensation in less restrictive environment. Discharge Planning: Pending psychiatric stabilization Request Healthcare Surrogate/Guardian Advocate?: Yes (1) Schizophrenia Qualifiers: Schizophrenia type: unspecified Qualified Code(s): F20.9 - Schizophrenia, unspecified
[2018-05-23] MEDS ORDERED: Paliperidone Inj 156 MG/ML Syringe IM SCH (09:00)
[2018-05-23] MEDS: Lisinopril 10 MG Tablet PO SCH (09:15)
[2018-05-23] MEDS: risperiDONE 1 MG ODT PO SCH ×2 (09:15→20:30)
--- NOTE | 2018-05-23 13:24 | P.PNPSY ---
Subjective Chief Complaint: Psychosis Remarks: Reviewed electronic medical records and discussed case with staff. Follow-up was conducted in his room with MAXIMILIANO Bowman present. Nurse advises he received his IM in [facility] a shot today. She states it was reported by the night crew that he stood for hours and 1 placed in his room last night. Upon examination today he seems responding to however with a long wait he finally responds to this provider but is perseverating on group homes in [place]. Seems to be some slight improvement in his communication as his speech is clear , logical, and organized. However he continues to appear to experience thought blocking Mental Status Examination Appearance: Disheveled (Hygiene is improving) Consciousness: Alert, Vigilant Orientation: Person Motor Activity: Other (No motoric abnormalities noted) Speech: Other (Mute) Language: Adequate, Other (Unable to evaluate) Fund of Knowledge: Inadequate Attention and Concentration: Inadequate Memory: Impaired (unable to assess due to lack of cooperation) Mood: Irritable, Other (easily agitated) Affect: Flat Thought Process & Associations: Disorganized Thought Content: Other (Appears internally preoccupied) Hallucination Type: Other (Appears internally stimulated) Delusion Type: Other (Continue to suspect underlying paranoia) Suicidal Ideation: No (none expressed, pt uncooperative) Homicidal Ideation: Yes (none voiced but recently threatened staff) Insight: Poor Judgment: Poor Assessment and Plan - Assessment (1) Schizophrenia Code(s): F20.9 - Schizophrenia, unspecified Status: Acute - Plan Plan: Patient will be reevaluated tomorrow by the attending psychiatrist. Continue with current treatment plan. Justification for Continued Inpatient Stay: Moving this patient to a less restrictive environment would likely result in decompensation. Request Healthcare Surrogate/Guardian Advocate?: Yes (1) Schizophrenia Qualifiers: Schizophrenia type: unspecified Qualified Code(s): F20.9 - Schizophrenia, unspecified
[2018-05-24] MEDS: risperiDONE 1 MG ODT PO SCH (08:50)
[2018-05-24] MEDS: Lisinopril 10 MG Tablet PO SCH (08:50)
--- NOTE | 2018-05-24 10:17 | P.PNPSY ---
Subjective Chief Complaint: Psychosis Remarks: Patient seen and examined with counselor and nurse. Chart reviewed. Case discussed with counselor and nurse. Patient continues to eat but otherwise interacts very little with others on the unit. Nursing suspects covert medication nonadherence, and indeed I find pills lying on the patient's mattress. Nursing will redouble efforts to ensure that the patient is taking medications as prescribed. On my examination today, the patient remains selectively mute. He does move around the unit readily, for example when engaging in hygiene tasks, and there is no evidence of catatonia per se. I suspect significant ongoing paranoia leading to muteness. No evident side effects from medications. No evident physical distress. Vital Signs Pulse Resp BP Pulse Ox 05/24/18 06:06 67 17 108/69 97 05/24/18 06:05 67 17 108/69 97 Labs reviewed. No new labs. Review of Systems All other systems reviewed negative except as stated in HPI Mental Status Examination Appearance: Disheveled (hygiene fair) Consciousness: Alert Orientation: Person Motor Activity: Other (No abnormal motor movements noted. No signs of drug- induced parkinsonism.) Speech: Other (Mute) Language: Other (Unable to evaluate secondary to muteness) Affect: Flat Hallucination Type: Other (Remains somewhat internally stimulated) Delusion Type: Other (Continue to suspect underlying paranoia) Insight: Poor Judgment: Poor Mental Status Exam Remarks: MSE limited because of muteness Assessment and Plan - Assessment (1) Schizophrenia Code(s): F20.9 - Schizophrenia, unspecified Status: Acute - Plan Plan: Inadequate response to current therapy, I suspect at least in part driven by medication non-adherence. I have spoken with GA and obtained consent for Haldol liquid and Haldol IM. I will discontinue oral Risperdal and initiate Haldol liquid 2.5mg PO BID with IM backup to target psychosis in hopes of reducing non-adherence. This regimen augments Invega Sustenna, which patient seems to be tolerating well. Continue to monitor on the inpatient unit. Continue other medications and care as ordered. Justification for Continued Inpatient Stay: Medication changes. Impairment in reality construction. High risk for decompensation in less restrictive environment. Discharge Planning: Pending psychiatric stabilization. Request Healthcare Surrogate/Guardian Advocate?: Yes (1) Schizophrenia Qualifiers: Schizophrenia type: unspecified Qualified Code(s): F20.9 - Schizophrenia, unspecified
[2018-05-24] MEDS ORDERED: Haloperidol Inj 5 MG/ML Ampul IM PRN (16:32)
[2018-05-24] MEDS: Haloperidol Lactate Oral Conc 10 MG/5 ML UDC PO SCH (20:19)
[2018-05-25] MEDS: Haloperidol Lactate Oral Conc 10 MG/5 ML UDC PO SCH ×2 (08:59→20:24)
[2018-05-25] MEDS: Lisinopril 10 MG Tablet PO SCH (08:59)
--- NOTE | 2018-05-25 12:40 | P.PNPSY ---
Subjective Chief Complaint: Psychosis Remarks: Patient seen and examined. Chart reviewed. Case discussed with nursing staff. Case discussed with counselor. Patient calls out to me today from his room, "Sir! Can I go back to [facility]?" He is much more interactive today, although he remains paranoid and internally preoccupied. He denies SI/HI. Denies AVH. Denies side effects from medications. No physical complaints. Vital Signs Temp Pulse Resp BP Pulse Ox 05/25/18 05:43 98.1 F 75 17 116/58 L 96 Labs reviewed. No new labs. Review of Systems All other systems reviewed negative except as stated in HPI Mental Status Examination Appearance: Appropriate (Fair) Consciousness: Alert Orientation: Person, Place (At least) Motor Activity: Other (No motor abnormalities noted) Speech: Unremarkable Language: Adequate Fund of Knowledge: Inadequate Attention and Concentration: Other (Fair) Memory: Impaired (unable to assess due to lack of cooperation) Mood: Other (Calm) Affect: Blunt Thought Process & Associations: Circumstantial Thought Content: Hallucinations, Delusional Hallucination Type: Other (Internally preoccupied) Delusion Type: Paranoid Suicidal Ideation: No Suicidal Plan: No Suicidal Intention: No Homicidal Ideation: No Homicidal Plan: No Homicidal Intention: No Insight: Poor Judgment: Poor Assessment and Plan - Assessment (1) Schizophrenia Code(s): F20.9 - Schizophrenia, unspecified Status: Acute - Plan Plan: Positive response to introduction of Haldol with apparent good tolerability of this agent. I will titrate the Haldol to 5 mg twice daily to target residual psychiatric symptoms. This is augmenting Invega Sustenna. Continue to monitor on the inpatient unit. Continue other medications and care as ordered. Justification for Continued Inpatient Stay: Medication changes. Impairment in reality construction. Risk for decompensation in less restrictive environment. Discharge Planning: Pending psychiatric stabilization. Request Healthcare Surrogate/Guardian Advocate?: Yes (1) Schizophrenia Qualifiers: Schizophrenia type: unspecified Qualified Code(s): F20.9 - Schizophrenia, unspecified
[2018-05-25] MEDS ORDERED: Haloperidol Inj 5 MG/ML Ampul IM PRN (16:00)
[2018-05-26] MEDS: Haloperidol Lactate Oral Conc 10 MG/5 ML UDC PO SCH ×3 (08:45→20:09)
[2018-05-26] MEDS: Lisinopril 10 MG Tablet PO SCH (09:06)
--- NOTE | 2018-05-26 09:25 | P.PNPSY ---
Subjective Chief Complaint: Psychosis Remarks: Patient seen and examined with counselor. Chart reviewed. Case discussed with nursing staff. Patient noted to be somewhat malodorous. No behavioral problem. Case discussed with treatment team. On my examination today, the patient is somewhat less interactive today versus yesterday. He does answer questions by shaking his head yes or no but does not speak as much today as he did yesterday. He does allow me to examine him for any EPS; he has none. No side effects from medications. No physical complaints or evidence of physical distress. Vital Signs Temp Pulse Resp BP Pulse Ox 05/26/18 05:28 97.8 F 80 19 122/86 98 Labs reviewed. No new labs. Review of Systems All other systems reviewed negative except as stated in HPI Mental Status Examination Appearance: Disheveled, Malodorous Consciousness: Alert Orientation: Person, Place (At least) Motor Activity: Other (No hand tremor, no cogwheeling, no dystonia, no dyskinesia noted.) Speech: Unremarkable Language: Adequate Fund of Knowledge: Inadequate Attention and Concentration: Other (Fair) Mood: Other (Calm) Affect: Blunt Thought Process & Associations: Other (Difficult to assess given limited sample) Thought Content: Hallucinations, Delusional Hallucination Type: Other (Remain somewhat internally stimulated) Delusion Type: Paranoid Suicidal Ideation: No (No SI voiced) Homicidal Ideation: No (No HI voiced) Insight: Poor Judgment: Poor Assessment and Plan - Assessment (1) Schizophrenia Code(s): F20.9 - Schizophrenia, unspecified Status: Acute - Plan Plan: Continue Haldol 5mg BID augmenting patient's Sustenna. I do note that only 2.5mg of Haldol was administered this morning, apparently due to some error in the dosing sent up from the pharmacy. RN will call pharmacy to ensure full 5mg dose is sent up for both the morning and evening dose. To consider further titration of the Haldol over the weekend. Staff to support patient's hygiene. Continue other medications and care as ordered. Continue to monitor on the inpatient unit. Justification for Continued Inpatient Stay: Impairment in reality construction. Impairment in self-care. Risk for decompensation in less restrictive setting. Discharge Planning: Pending psychiatric stabilization, return to facility with outpatient psychiatric follow-up. Request Healthcare Surrogate/Guardian Advocate?: Yes (1) Schizophrenia Qualifiers: Schizophrenia type: unspecified Qualified Code(s): F20.9 - Schizophrenia, unspecified
--- NOTE | 2018-05-26 13:46 | P.TTN ---
- Patient Problems Problems: 1. Discharge planning 2. Medication compliance 3. Knowledge deficit 4. Lack of coping skills - Progress Toward Goals Provider Present: Dr. Aidee Jeter (Dr. Jeter will start patient on anti- psyhcotic medications. May 26, 2018, patient appears to be improving as evidenced by his ability to respond verbally to some of the questions asked yesterday while being interviewed by the doctor and counselor. Patient remains for further stabilization. [facility] assisted living [facility] called today to expressed their interest in having the patient return to their facility. Patient will return to [facility] once stabilized.) Psychiatric Counselors Present: Ramon Abreu Jr., [facility] (Patient is hypoverbal unable or unwilling to participate. Patient fluctuates from being hypoverbal to having the ability to participate in a limited conversation verbally. Counselor will will return to [facility] upon discharge.) Group Spec/RT/OT/PARISH Present: ARTI West (Patient is seclusive to his room and does not participate in groups on the unit.), JEM Chavis ( Patient is seclusive to his room and does not attend group) - Documentation Teaching Recipient: Patient
[2018-05-27] MEDS: Lisinopril 10 MG Tablet PO SCH (08:33)
[2018-05-27] MEDS: Haloperidol Lactate Oral Conc 10 MG/5 ML UDC PO SCH ×2 (08:34→21:08)
[2018-05-27] MEDS ORDERED: Haloperidol Inj 5 MG/ML Ampul IM PRN (15:49)
--- NOTE | 2018-05-27 18:36 | P.PNPSY ---
Subjective Chief Complaint: Psychosis Remarks: Reviewed electronic medical records and discussed case with staff. Follow-up was conducted in the day room with MAXIMILIANO Hess present. Staff reports the patient' s been compliant mostly seclusive to room. He is observed standing in the day room with food on his clothing. He presents as mute until I asked him if he is still hoping for a fdc placement and [place]. At that time, he begins to discuss wanting to go to [place] but refuses to speak to me on any other subjects. To all other questions he responds, "I do not want to discuss it". I have increased his Haldol to [address] Jeter recommendation. Mental Status Examination Appearance: Disheveled, Malodorous Consciousness: Alert Orientation: Person, Place (At least) Motor Activity: Other (No hand tremor, no cogwheeling, no dystonia, no dyskinesia noted.) Speech: Unremarkable Language: Adequate Fund of Knowledge: Inadequate Attention and Concentration: Other (Fair) Memory: Impaired (unable to assess due to lack of cooperation) Mood: Other (Calm) Affect: Blunt Thought Process & Associations: Other (Difficult to assess given limited sample) Thought Content: Hallucinations, Delusional Hallucination Type: Other (Remain somewhat internally stimulated) Delusion Type: Paranoid Suicidal Ideation: No (No SI voiced) Suicidal Plan: No Suicidal Intention: No Homicidal Ideation: No (No HI voiced) Homicidal Plan: No Homicidal Intention: No Insight: Poor Judgment: Poor Assessment and Plan - Assessment (1) Schizophrenia Code(s): F20.9 - Schizophrenia, unspecified Status: Acute - Plan Plan: Patient will be reevaluated Tuesday by the attending psychiatrist. Continue with current treatment plan. His Haldol has been increased to target symptoms. Patient remains selectively mute. Justification for Continued Inpatient Stay: Moving this patient to a less restrictive environment would likely result in decompensation. Request Healthcare Surrogate/Guardian Advocate?: Yes (1) Schizophrenia Qualifiers: Schizophrenia type: unspecified Qualified Code(s): F20.9 - Schizophrenia, unspecified
[2018-05-28] MEDS: Lisinopril 10 MG Tablet PO SCH (09:19)
[2018-05-28] MEDS: Haloperidol Lactate Oral Conc 10 MG/5 ML UDC PO SCH ×2 (09:20→20:38)
--- NOTE | 2018-05-28 15:53 | P.PNPSY ---
Subjective Chief Complaint: Psychosis Remarks: Reviewed electronic medical records and discussed case with staff. Follow-up was conducted in patient's room with MAXIMILIANO Gonzalez present. Patient was found lying in the bed with the covers over his head. When asked how he was today he responded pretty good and then again became mute. I asked several questions about how he was feeling and then brought up the assisted living facility in [place] again at which time he began communicating in an almost normal manner. I addressed his habit of urinating in his room and requested that he use a urinal or part staff to let him in the bathroom. He agreed that he would do this. Later he came to his door and said "excuse me ma'am" and again asked a question about [place]. He seems to be making some progress and is much more interactive and activated today. Mental Status Examination Appearance: Disheveled, Malodorous Consciousness: Alert Orientation: Person, Place (At least) Motor Activity: Other (No hand tremor, no cogwheeling, no dystonia, no dyskinesia noted.) Speech: Unremarkable Language: Adequate Fund of Knowledge: Inadequate Attention and Concentration: Other (Fair) Memory: Impaired (unable to assess due to lack of cooperation) Mood: Other (Calm) Affect: Blunt Thought Process & Associations: Other (Difficult to assess given limited sample) Thought Content: Hallucinations, Delusional Hallucination Type: Other (Remain somewhat internally stimulated) Delusion Type: Paranoid Suicidal Ideation: No (No SI voiced) Suicidal Plan: No Suicidal Intention: No Homicidal Ideation: No (No HI voiced) Homicidal Plan: No Homicidal Intention: No Insight: Poor Judgment: Poor Assessment and Plan - Assessment (1) Schizophrenia Code(s): F20.9 - Schizophrenia, unspecified Status: Acute - Plan Plan: Patient will be reevaluated Tuesday by the attending psychiatrist. Continue with current treatment plan. Justification for Continued Inpatient Stay: Moving this patient to a less restrictive environment would likely result in decompensation. Request Healthcare Surrogate/Guardian Advocate?: Yes (1) Schizophrenia Qualifiers: Schizophrenia type: unspecified Qualified Code(s): F20.9 - Schizophrenia, unspecified
[2018-05-29 06:12] VITALS: TEMP 98.4
[2018-05-29] MEDS: Haloperidol Lactate Oral Conc 10 MG/5 ML UDC PO SCH ×2 (08:36→20:40)
[2018-05-29] MEDS: Lisinopril 10 MG Tablet PO SCH (08:37)
--- NOTE | 2018-05-29 10:23 | P.PNPSY ---
Subjective Chief Complaint: Psychosis Remarks: Patient seen and examined with nurse. Chart reviewed. Case discussed with nursing staff. Case discussed with counselor. On my examination today, the patient is once again more conversant. We have a more or less normal conversation and the patient does deny SI or HI. He denies AVH. However, the patient's hygiene is quite poor. His clothes and bed linens are visibly soiled. When I encourage him to shower he becomes quite paranoid and finally insists that he has already showered this morning, although he clearly has not and the nursing staff indicates that he has not. No reported side effects from medications although the patient does have a mild resting tremor. No physical complaints. Vital Signs Temp Pulse Resp BP Pulse Ox 05/29/18 06:00 98.4 F 80 17 131/68 95 Labs reviewed. No new labs. Review of Systems All other systems reviewed negative except as stated in HPI (Limitation: Psychosis) Mental Status Examination Appearance: Disheveled, Malodorous Consciousness: Alert Orientation: Person, Place (At least) Motor Activity: Other (Mild resting hand tremor. Very subtle cogwheeling. No dystonias or dyskinesias. No other motor abnormalities noted.) Speech: Unremarkable Language: Adequate Fund of Knowledge: Inadequate Attention and Concentration: Other (Fair) Memory: Impaired (Psychosis interferes) Mood: Other (Calm) Affect: Flat Thought Process & Associations: Intact Thought Content: Delusional Hallucination Type: None Delusion Type: Paranoid Suicidal Ideation: No Suicidal Plan: No Suicidal Intention: No Homicidal Ideation: No Homicidal Plan: No Homicidal Intention: No Insight: Poor Judgment: Poor Assessment and Plan - Assessment (1) Schizophrenia Code(s): F20.9 - Schizophrenia, unspecified Status: Acute - Plan Plan: Add scheduled 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 Continue Haldol 10mg BID augmenting Invega Sustenna. Patient does seem to be improving slowly. Staff to assist patient with maintaining hygiene. Continue to monitor on the inpatient unit. Continue other medications and care as ordered. Justification for Continued Inpatient Stay: Impairment in self-care. Impairment in reality construction. High risk for decompensation in less restrictive environment. Discharge Planning: Pending psychiatric stabilization return to facility with outpatient follow-up. Request Healthcare Surrogate/Guardian Advocate?: Yes (1) Schizophrenia Qualifiers: Schizophrenia type: unspecified Qualified Code(s): F20.9 - Schizophrenia, unspecified
[2018-05-30 06:01] VITALS: BP 121/56; PULSE 61; RESP 18; O2SAT 96
[2018-05-30] MEDS: Haloperidol Lactate Oral Conc 10 MG/5 ML UDC PO SCH (09:49)
[2018-05-30] MEDS: Lisinopril 10 MG Tablet PO SCH (09:50)
--- NOTE | 2018-05-30 15:14 | P.DSPSY ---
Psychiatry Discharge Summary Inpatient Psychiatric care?: Yes Advance Directives: No Mental Health Advance Directive: No Health Care Proxy: No - Admission Admission Date: May 13, 2018 12:06 - Admission Diagnosis (1) Schizophrenia Code(s): F20.9 - Schizophrenia, unspecified Brief History: Pt is a 53 YOAAM with a hx of schizophrenia who was admitted to [facility] under an ex- parte alleging that pt has been non-compliant with medications and has been aggressive at [facility]. Pt was aggressive and threatening in ED and received ETO of haldol for safety. technical staff engineer report that pt has been paranoid and guarded on unit. He appears to be actively responding to internal stimuli during interview attempts. Pt is quite paranoid and refuses to engage interview. He is disorganized in behaviors and approaches MD twice for interview but refuses to answer any questions or provide history. He is disheveled with poor hygiene. Tobacco Use In Past 30 Days: No How Often Do You Have a Drink Containing Alcohol: Unable to Obtain Hospital Course: Patient was admitted to a locked psychiatric unit. All safety precautions were maintained throughout his stay. Patient was followed on a daily basis by psychiatric provider as well as being seen by a counselor. Upon arrival the patient was largely nonverbal, noncompliant with medications, refusing to eat, aggressive with those around him, verbally threatening, and largely uncooperative. His attending psychiatrist started him on in Inega Sustenna, once a healthcare surrogate was named, and augmented it with oral risperidone. Patient's condition improved minimally so eventually he was switched from the risperidone to Haldol. He received a booster shot of the Invega Sustenna and ultimately had his Haldol dose titrated up to 10 mg to target his symptoms. The patient began showing improvement. He became less paranoid and more interactive with staff and those around him. Upon examination today he is speaking in complete sentences, maintaining eye contact, he took a shower this morning, and has been consistent with using his urinal. He denies being suicidal or homicidal. He denies auditory or visual hallucinations. There is no indication of internal stimulation or thought blocking. I can appreciate no psychosis or shayne at this time. He does not appear to be an eminent danger to himself or others. Ramon, his counselor, has informed me that [facility] is willing to take him back. He seems to have reached his maximum therapeutic benefit from this inpatient admission and has a safe discharge plan. Therefore , he will be discharged back to his assisted living facility with prescriptions and instructions to return should his condition is stabilized. - Discharge Discharge Date: 05/30/18 - Discharge Diagnosis (1) Schizophrenia Code(s): F20.9 - Schizophrenia, unspecified Status: Acute Discharge Disposition: Assisted Living Facility - Discharge Instructions Discharge Diet: Regular Diet Activities You Can Perform: Regular- No Restrictions - Discharge Time > 30 minutes Mental Status Examination Appearance: Appropriate Consciousness: Alert Orientation: Person, Place (At least), Situation Motor Activity: Other (Mild resting hand tremor. Very subtle cogwheeling. No dystonias or dyskinesias. No other motor abnormalities noted.) Speech: Unremarkable Language: Adequate Fund of Knowledge: Adequate Attention and Concentration: Other (Fair) Memory: Impaired (Psychosis interferes) Mood: Other (Calm) Affect: Flat Thought Process & Associations: Intact Thought Content: Appropriate Hallucination Type: None Delusion Type: None Suicidal Ideation: No Suicidal Plan: No Suicidal Intention: No Homicidal Ideation: No Homicidal Plan: No Homicidal Intention: No Insight: Fair Judgment: Adequate Discharge/Advance Care Plan - Results Vital Signs: Last Vital Signs Temp 98.4 F 05/29/18 06:00 Pulse 61 05/30/18 06:00 Resp 18 05/30/18 06:00 BP 121/56 L 05/30/18 06:00 Pulse Ox 96 05/30/18 06:00 Lab Results: Laboratory Results Hemoglobin A1c 5.8 % (4.3-6.0) 05/19/18 12:20 Triglycerides 98 mg/dL (42-150) 05/19/18 12:20 Cholesterol 122 mg/dL (120-200) 05/19/18 12:20 LDL Cholesterol, Calc 46 mg/dL (0-99) 05/19/18 12:20 HDL Cholesterol 56.6 mg/dL (40.0-60.0) 05/19/18 12:20 TSH 0.215 uIU/mL (0.358-3.740) L 05/13/18 11:40 Free T4 0.96 ng/dL (0.76-1.46) 05/19/18 12:20 Summary of Procedures: None Pending Results: None - Medications Number of antipsychotic medications at discharge: 2 Appropriate use of more than 1 antipsychotic med: Minimum of three failed multiple trials of monotherapy - Discharge Care Plan Goals to Promote Your Health: * To prevent worsening of your condition and complications * To maintain your health at the optimal level Directions to Meet Your Goals: Take your medications as prescribed Follow your dietary instruction Follow activity as directed Keep your appointments as scheduled Take your immunizations and boosters as scheduled If your symptoms worsen call your PCP, if no PCP go to Urgent Care Center or Emergency Room For 14/03 questions related to your inpatient stay or results of tests pending at discharge, please contact ALIE Cuevas at Smoking is Dangerous to Your Health. Avoid second hand smoking (1) Schizophrenia Qualifiers: Schizophrenia type: unspecified Qualified Code(s): F20.9 - Schizophrenia, unspecified (1) Schizophrenia Qualifiers: Schizophrenia type: unspecified Qualified Code(s): F20.9 - Schizophrenia, unspecified
== END 2018-05-30 16:50 ==
LOC: NEPJ 15:27 → NEDA 05-13 12:06 → H270 05-13 13:55
PROVIDERS: ADMIT Psychiatry & Neurology Psychiatry; ATTEND Psychiatry & Neurology Psychiatry